=== PATIENT | male | born 1950 | race Caucasian/White ===

== ENCOUNTER 2018-03-08 23:38 | Emergency (ER) | payer OTHER ==
[2018-03-09 00:26] LABS: Absolute Monocytes 0.6 K/uL (0.1-1.3); Absolute Neutrophil 4.2 K/uL (1.8-8.0); Basophils % 0.4 % (0-1.3); Eosinophils % 2.8 % (0-4.4); Hematocrit 35.9 % (39.6-49.0); Lymphocytes % 28.4 % (15.3-44.8); MCH 29.6 pg (27.0-35.0); MCV 85.1 fL (80-100); MPV 8.9 fL (7.6-11.3); Monocytes % 8.1 % (3.3-12.3); RBC Red Blood Cell Count 4.21 M/uL (4.33-5.43)
[2018-03-09 00:34] LABS: Potassium 3.6 mEq/L (3.6-5.0)
[2018-03-09 00:45] LABS: Protime INR 0.96
[2018-03-09] MEDS ORDERED: ASPIRIN 325 MG TAB ONE (01:25)
--- NOTE | 2018-03-09 02:02 | EDPHYS ---
Physician Documentation [facility] Name: Toney Jenkins Age: 67 yrs Sex: Male : 1950 Arrival Date: 03/08/2018 Time: 23:39 Bed 13 Private MD: ED Physician Bruce Carbajal HPI: 03/09 00:20 This 67 yrs old Male presents to ER via Ambulatory with complaints of Slurred pm1 Speech, High Blood Pressure. 00:20 The patient presents to the emergency department with a speech or higher order brain pm1 function problem, expressive aphasia, right side of mouth drooping. Onset: The symptoms/episode began/occurred yesterday, at 19:30. Context: occurred at home, occurred while the patient was watching TV. Associated signs and symptoms: Pertinent negatives: nausea, paresthesias, blurred vision, loss of vision. Severity of symptoms: in the emergency department the symptoms have improved. Patient's baseline: Neuro: alert and fully oriented, Motor: no deficits, Ambulation: walks without assistance, Speech: normal. Current symptoms: Currently, the patient is not experiencing any symptoms, the patient feels back to baseline. The patient has not experienced similar symptoms in the past. The patient has been recently seen by a physician: the patient's primary care provider. patient noticed that he was having some difficulty with expressing himself and right side mouth of mouth appeared lower with feeling that drool was dripping out of the corner of his mouth. Historical: - Allergies: 00:41 No Known Allergies; bb - Home Meds: 00:41 tamsulosin 0.4 mg oral cp24 1 cap once daily [Active]; carvedilol 25 mg oral tab 1 tab bb 2 times per day [Active]; losartan 100 mg oral tab 1 tab once daily [Active]; buspirone 10 mg Oral tab 1 tab 2 times per day [Active]; atorvastatin 40 mg oral tab 1 tab once daily [Active]; aspirin 81 mg Oral chew 1 tab once daily [Active]; hydrochlorothiazide 25 mg Oral tab 1 tab once daily [Active]; eplerenone 50 mg oral tab 1 tab once daily [Active]; - PMHx: 00:41 Hypertension; BPH; bb - Immunization history:: Adult Immunizations unknown. - Social history:: Smoking status: Patient/guardian denies using. ROS: 01:00 Constitutional: Negative for fever, chills, and weight loss, Eyes: Negative for injury, pm1 pain, redness, and discharge, ENT: Negative for injury, pain, and discharge, Neck: Negative for injury, pain, and swelling, Cardiovascular: Negative for chest pain, palpitations, and edema, Respiratory: Negative for shortness of breath, cough, wheezing, and pleuritic chest pain, Abdomen/GI: Negative for abdominal pain, nausea, vomiting, diarrhea, and constipation, Back: Negative for injury and pain, : Negative for injury, bleeding, discharge, and swelling, MS/Extremity: Negative for injury and deformity, Skin: Negative for injury, rash, and discoloration. 01:00 Neuro: Positive for right sided mouth drooping and drooling with expressive aphasia . Exam: 01:00 Constitutional: This is a well developed, well nourished patient who is awake, alert, pm1 and in no acute distress. Head/Face: Normocephalic, atraumatic. Eyes: Pupils equal round and reactive to light, extra-ocular motions intact. Lids and lashes normal. Conjunctiva and sclera are non-icteric and not injected. Cornea within normal limits. Periorbital areas with no swelling, redness, or edema. ENT: Nares patent. No nasal discharge, no septal abnormalities noted. Tympanic membranes are normal and external auditory canals are clear. Oropharynx with no redness, swelling, or masses, exudates, or evidence of obstruction, uvula midline. Mucous membranes moist. Neck: Trachea midline, no thyromegaly or masses palpated, and no cervical lymphadenopathy. Supple, full range of motion without nuchal rigidity, or vertebral point tenderness. No Meningismus. Chest/axilla: Normal chest wall appearance and motion. Nontender with no deformity. No lesions are appreciated. Cardiovascular: Regular rate and rhythm with a normal S1 and S2. No gallops, murmurs, or rubs. No pulse deficits. Respiratory: Lungs have equal breath sounds bilaterally, clear to auscultation and percussion. No rales, rhonchi or wheezes noted. No increased work of breathing, no retractions or nasal flaring. Abdomen/GI: Soft, non-tender, with normal bowel sounds. No distension or tympany. No guarding or rebound. No evidence of tenderness throughout. Back: No spinal tenderness. No costovertebral tenderness. Full range of motion. Skin: Warm, dry with normal turgor. Normal color with no rashes, no lesions, and no evidence of cellulitis. MS/ Extremity: Pulses equal, no cyanosis. Neurovascular intact. Full, normal range of motion. 01:00 Neuro: Orientation: is normal, Mentation: is normal, Cranial nerves: CN II- XII are normal as tested, Cerebellar function: normal finger to nose testing, Motor: moves all fours, strength is normal, strength is 5/5 in all extremities, Sensation: is normal, no obvious gross deficits. Vital Signs: 03/08 23:53 BP 173 / 94; Pulse 73; Resp 18 S; Temp 98.3(O); Pulse Ox 98% on R/A; Weight 88 kg (R); bb Height 5 ft. 10 in. (177.80 cm) (R); Pain 0/10; 03/09 00:55 BP 152 / 85; Pulse 70; Resp 18 S; Pulse Ox 96% on R/A; bb 01:50 BP 176 / 98; Pulse 67; Resp 16 S; Pulse Ox 98% on R/A; bb 03:06 BP 175 / 93; Pulse 66; Resp 16 S; Pulse Ox 98% on R/A; bb 04:15 BP 169 / 92; Pulse 71; Resp 18 S; Pulse Ox 96% on R/A; bb 03/08 23:53 Body Mass Index 27.84 (88.00 kg, 177.80 cm) bb NIH Stroke Scale Scores: 00:00 NIHSS Score: 1 bb 00:25 NIHSS Score: 0 pm1 MDM: 00:05 Patient medically screened. pm1 01:59 Data reviewed: vital signs. Data interpreted: Pulse oximetry: on room air is 96 %. pm1 Interpretation: normal. 01:59 Counseling: I had a detailed discussion with the patient and/or guardian regarding: the pm1 historical points, exam findings, and any diagnostic results supporting the discharge/admit diagnosis, lab results, radiology results, the need to transfer to another facility, [facility] does not immediately have the required specialist. 03:30 Physician consultation: Neurology Fellow Yvette was contacted at 03:05, regarding pm1 regarding transfer, patient's condition, and will see patient if bed available. Will call back. Accepting physician Tyler. 03:30 ED course: Patient with onset of expressive aphasia and right sided mouth droop per pm1 at 1930. Patient arrival to ER at 0000, 4.5 hours post onset of symptoms. Patient with complete resolution of symptoms on arrival to the ER on assessment. Patient without stroke symptoms in the ER and not a candidate for thrombolytics based on presentation and time of onset of symptoms. 03/09 00:04 Order name: Basic Metabolic Panel; Complete Time: 01:02 pm1 03/09 00:04 Order name: CBC with Diff; Complete Time: 01:02 pm1 03/09 00:04 Order name: Protime (+inr); Complete Time: 01:02 pm1 03/09 00:04 Order name: Ptt, Activated; Complete Time: 01:02 pm1 03/09 00:04 Order name: Urine Microscopic Only; Complete Time: 03:03 pm1 03/09 01:46 Order name: Urine Dipstick--Ancillary (enter results); Complete Time: 03:18 2 03/09 00:01 Order name: CT Stroke Brain w/o Contrast [facility] 03/09 00:04 Order name: Stroke CXR 1 View pm1 03/09 00:04 Order name: EKG; Complete Time: 00:05 pm1 03/09 00:04 Order name: Cardiac monitoring; Complete Time: 00:53 pm1 03/09 00:04 Order name: EKG - Nurse/Tech; Complete Time: 01:21 pm1 03/09 00:04 Order name: IV Saline Lock; Complete Time: 00:53 pm1 03/09 00:04 Order name: Labs collected and sent; Complete Time: 00:53 pm1 03/09 00:04 Order name: NPO; Complete Time: 00:53 pm1 03/09 00:04 Order name: O2 Per Protocol; Complete Time: 00:53 pm1 03/09 00:04 Order name: O2 Sat Monitoring; Complete Time: 00:53 pm1 03/09 00:04 Order name: Stroke Swallow Screen; Complete Time: 00:53 pm1 03/09 00:04 Order name: Urine Dipstick-Ancillary (obtain specimen); Complete Time: 01:37 pm1 Administered Medications: 01:25 Drug: Aspirin 325 mg Route: PO; bb 03:10 Follow up: Response: No adverse reaction bb Disposition: 19:08 Co-signature as Attending Physician, Bruce Carbajal MD. dionte Disposition: 03/09/18 02:01 Transfer ordered to [facility]. Diagnosis is Transient cerebral ischemic attack, unspecified. - Reason for transfer: Specialty. - Accepting physician is [facility] neurology. - Condition is Stable. - Problem is new. - Symptoms have improved. NIH Stroke Scale - NIH Stroke Score Date: 03/09/2018 Time: 00:00 Total Score = 1 1a. Level of Consciousness (LOC) - 0(Alert) 1b. Level of Consciousness (LOC) (Year \T\ Age) - 0(Both) 1c. LOC Commands (Open \T\ Closes Eyes/Blanket Binder) - 0(Both) 2. Best Gaze (Lateral Gaze Paresis) - 0(Normal) 3. Visual Field Loss - 0(No visual loss) 4. Facial Palsy - 0(Normal) 5a. Left Arm: Motor (10-second hold) - 0(No drift) 5b. Right Arm: Motor (10-second hold) - 0(No drift) 6a. Left Leg: Motor (5-second hold - always test supine) - 0(No drift) 6b. Right Leg: Motor (5-second hold - always test supine) - 0(No drift) 7. Limb Ataxia (finger/nose \T\ heel/chawla - test with eyes open) - 0(Absent) 8. Sensory Loss (pinprick arms/legs/face) - 0(Normal) 9. Best Language: Aphasia (description/naming/reading) - 0(No aphasia) 10. Dysarthria (speech clarity - read or repeat words) - 1(Mild to Moderate) 11. Extinction and Inattention (visual/tactile/auditory/spatial/personal) - 0(No abnormality) Initials: oscar NIH Stroke Scale - NIH Stroke Score Date: 03/09/2018 Time: 00:25 Total Score = 0 1a. Level of Consciousness (LOC) - 0(Alert) 1b. Level of Consciousness (LOC) (Year \T\ Age) - 0(Both) 1c. LOC Commands (Open \T\ Closes Eyes/Blanket Binder) - 0(Both) 2. Best Gaze (Lateral Gaze Paresis) - 0(Normal) 3. Visual Field Loss - 0(No visual loss) 4. Facial Palsy - 0(Normal) 5a. Left Arm: Motor (10-second hold) - 0(No drift) 5b. Right Arm: Motor (10-second hold) - 0(No drift) 6a. Left Leg: Motor (5-second hold - always test supine) - 0(No drift) 6b. Right Leg: Motor (5-second hold - always test supine) - 0(No drift) 7. Limb Ataxia (finger/nose \T\ heel/chawla - test with eyes open) - 0(Absent) 8. Sensory Loss (pinprick arms/legs/face) - 0(Normal) 9. Best Language: Aphasia (description/naming/reading) - 0(No aphasia) 10. Dysarthria (speech clarity - read or repeat words) - 0(Normal) 11. Extinction and Inattention (visual/tactile/auditory/spatial/personal) - 0(No abnormality) Initials: pm1 Signatures: Dispatcher [employer] EDMS Roxana Earl RN RN bb Cole Aguirre, SMALL BOAT ENGINEER SMALL BOAT ENGINEER pm1 Bruce Carbajal MD MD gs Corrections: (The following items were deleted from the chart) 00:54 00:04 Accucheck ordered. pm1 bb 02:18 00:20 The patient presents to the emergency department with a speech or higher pm1 order brain function problem, expressive aphasia, left side of mouth drooping, pm1
--- NOTE | 2018-03-09 02:02 | ER ---
Nurse's Notes [facility] Name: Toney Jenkins Age: 67 yrs Sex: Male : 1950 Arrival Date: 03/08/2018 Time: 23:39 Bed 13 Private MD: Diagnosis: Transient cerebral ischemic attack, unspecified Presentation: 03/08 23:50 Presenting complaint: states: she noticed pt having difficulty speaking at approx bb 1930 last night she also states pt has a crooked smile and his blood pressure has been really high the last few days. Transition of care: patient was not received from another setting of care. An acute neurological deficit is present. Onset of symptoms was March 08, 2018 at 19:30. Initial Sepsis Screen: Does the patient meet any 2 criteria? No. Patient's initial sepsis screen is negative. Does the patient have a suspected source of infection? No. Patient's initial sepsis screen is negative. Care prior to arrival: None. 23:50 Method Of Arrival: Ambulatory 23:50 Acuity: DANII 2 bb 03/09 00:52 Pre-hospital glucose is not applicable to this patient. bb Triage Assessment: 03/08 00:50 The onset of the patients symptoms was March 08, 2018 at 19:30. General: Appears in no bb apparent distress. well groomed, Behavior is calm, cooperative. Pain: Denies pain. Neuro: Level of Consciousness is awake, alert, obeys commands, Oriented to person, place, time, situation, Form Coverer are equal bilaterally Gait is steady, Speech is slurred, Facial symmetry appears normal, Reports difficulty speaking "can't find the right words". Cardiovascular: Heart tones S1 S2 present Capillary refill < 3 seconds Patient's skin is warm and dry. Respiratory: Airway is patent Respiratory effort is even, unlabored. GI: No deficits noted. No signs and/or symptoms were reported involving the gastrointestinal system. Derm: Skin is pink, warm \\T\\ dry. Musculoskeletal: Circulation, motion, and sensation intact. Historical: - Allergies: 03/09 00:41 No Known Allergies; bb - Home Meds: 00:41 tamsulosin 0.4 mg oral cp24 1 cap once daily [Active]; carvedilol 25 mg oral tab 1 tab bb 2 times per day [Active]; losartan 100 mg oral tab 1 tab once daily [Active]; buspirone 10 mg Oral tab 1 tab 2 times per day [Active]; atorvastatin 40 mg oral tab 1 tab once daily [Active]; aspirin 81 mg Oral chew 1 tab once daily [Active]; hydrochlorothiazide 25 mg Oral tab 1 tab once daily [Active]; eplerenone 50 mg oral tab 1 tab once daily [Active]; - PMHx: 00:41 Hypertension; BPH; bb - Immunization history:: Adult Immunizations unknown. - Social history:: Smoking status: Patient/guardian denies using. Screenin/18 23:53 Abuse screen: Denies threats or abuse. Nutritional screening: No deficits noted. bb Tuberculosis screening: No symptoms or risk factors identified. Fall Risk Secondary diagnosis (15 points) IV access (20 points). Ambulatory Aid- None/Bed Rest/Nurse Assist (0 pts). Mental Status- Oriented to own ability (0 pts). Total Caban Fall Scale indicates Low Risk Score (25-44 pts). Fall prevention measures have been instituted. Side Rails Up X 2 Family Present and informed to notify staff if they need to leave bedside As available Patient and Family Educated on Fall Prevention Program and strategies. Assessment: 00:00 T-PA (Activase) Screening: Contraindications: Patient reports onset of signs and bb symptoms of stroke greater than 6 hours ago: Yes. 23:50 Reassessment: No changes from previously documented assessment. see triage assessment. bb 03/09 00:10 The patient has not been NPO before screening. The patient is alert, and able to follow bb commands. The patient exhibits slurred or garbled speech. The patient is not exhibiting difficulty speaking. The patient does not exhibit difficulty understanding words. The patient is able to swallow own secretions with no drooling or need for suction. Patient tolerated one teaspoon of water. No drooling, immediate coughing, gurgling, or clearing of the throat was noted. The patient tolerated 90mL of water. No drooling, immediate coughing, gurgling, or clearing of the throat was noted. The patient passed the bedside swallow screening. Oral medications may be given as ordered. Contact Physician for further diet orders. 00:10 Provider notified of bedside swallow screening results: Cole Aguirre ASSEMBLER ENGINE. bb 00:55 Reassessment: Patient is alert, oriented x 3, equal unlabored respirations, skin bb warm/dry/pink. pt resting quietly, IV intact, awaiting results, family at bedside. 01:50 Reassessment: pt appears to be sleeping, eyes closed resp unlabored, no signs of bb discomfort, IV site intact, family at bedside pt awaiting transfer for higher level of care. 03:09 Reassessment: Patient and/or family updated on plan of care and expected duration. Pain bb level reassessed. Patient is alert, oriented x 3, equal unlabored respirations, skin warm/dry/pink. family at bedside Patient states symptoms have improved. 03:40 Reassessment: report called to Nenita Moctezuma RN at [facility] [place].bb 04:16 Reassessment: [facility] at bedside for transfer of pt to [facility] pt is A\\T\\O x 4, resp unlabored, IV intact, no signs of distress noted, pt ambulated with steady gait to the bathroom before lying on EMS stretcher. Spouse states she is going home and will be there in the morning. Vital Signs: 03/08 23:53 BP 173 / 94; Pulse 73; Resp 18 S; Temp 98.3(O); Pulse Ox 98% on R/A; Weight 88 kg (R); bb Height 5 ft. 10 in. (177.80 cm) (R); Pain 0/10; 03/09 00:55 BP 152 / 85; Pulse 70; Resp 18 S; Pulse Ox 96% on R/A; bb 01:50 BP 176 / 98; Pulse 67; Resp 16 S; Pulse Ox 98% on R/A; bb 03:06 BP 175 / 93; Pulse 66; Resp 16 S; Pulse Ox 98% on R/A; bb 04:15 BP 169 / 92; Pulse 71; Resp 18 S; Pulse Ox 96% on R/A; bb 03/08 23:53 Body Mass Index 27.84 (88.00 kg, 177.80 cm) bb NIH Stroke Scale Scores: 00:00 NIHSS Score: 1 bb 00:25 NIHSS Score: 0 pm1 ED Course: 03/08 23:39 Patient arrived in ED. ds1 23:47 Roxana Earl, RN is Primary Nurse. bb 23:53 Arm band placed on Patient placed in an exam room, on a stretcher, on contract driver, bb on pulse oximetry. 23:53 Patient has correct armband on for positive identification. Placed in gown. Bed in low bb position. Call light in reach. Side rails up X2. Adult w/ patient. Pulse ox on. NIBP on. 03/09 00:04 Cole Aguirre NP is PHCP. pm1 00:04 Bruce Carbajal MD is Attending Physician. pm1 00:05 Inserted saline lock: 20 gauge in right forearm, using aseptic technique. ,using bb aseptic technique. by [facility] Blood collected. 00:16 X-ray completed. Portable x-ray completed in exam room. Patient tolerated procedure bb2 well. 00:16 CT Stroke Brain w/o Contrast In Process Unspecified. EDMS 00:17 Stroke CXR 1 View In Process Unspecified. EDMS 00:38 Triage completed. bb 01:20 Urine collected: clean catch specimen, clear. bb 01:21 EKG done, by ED staff, reviewed by Cole Aguirre NP. cc 03:07 Warm blanket given. Pillow given. bb 04:21 No provider procedures requiring assistance completed. Patient transferred, IV remains bb in place. Administered Medications: 01:25 Drug: Aspirin 325 mg Route: PO; bb 03:10 Follow up: Response: No adverse reaction bb Outcome: 01:00 Instructed on the need for transfer. bb 02:01 ER care complete, transfer ordered by . pm1 04:21 Transferred by ground EMS to [facility], Transfer form completed. X-rays sent bb w/ patient. 04:21 Condition: stable 04:22 Patient left the ED. bb NIH Stroke Scale - NIH Stroke Score Date: 03/09/2018 Time: 00:00 Total Score = 1 1a. Level of Consciousness (LOC) - 0(Alert) 1b. Level of Consciousness (LOC) (Year \\T\\ Age) - 0(Both) 1c. LOC Commands (Open \\T\\ Closes Eyes/Runway Model) - 0(Both) 2. Best Gaze (Lateral Gaze Paresis) - 0(Normal) 3. Visual Field Loss - 0(No visual loss) 4. Facial Palsy - 0(Normal) 5a. Left Arm: Motor (10-second hold) - 0(No drift) 5b. Right Arm: Motor (10-second hold) - 0(No drift) 6a. Left Leg: Motor (5-second hold - always test supine) - 0(No drift) 6b. Right Leg: Motor (5-second hold - always test supine) - 0(No drift) 7. Limb Ataxia (finger/nose \\T\\ heel/chawla - test with eyes open) - 0(Absent) 8. Sensory Loss (pinprick arms/legs/face) - 0(Normal) 9. Best Language: Aphasia (description/naming/reading) - 0(No aphasia) 10. Dysarthria (speech clarity - read or repeat words) - 1(Mild to Moderate) 11. Extinction and Inattention (visual/tactile/auditory/spatial/personal) - 0(No abnormality) Initials: oscar NIH Stroke Scale - NIH Stroke Score Date: 03/09/2018 Time: 00:25 Total Score = 0 1a. Level of Consciousness (LOC) - 0(Alert) 1b. Level of Consciousness (LOC) (Year \\T\\ Age) - 0(Both) 1c. LOC Commands (Open \\T\\ Closes Eyes/Runway Model) - 0(Both) 2. Best Gaze (Lateral Gaze Paresis) - 0(Normal) 3. Visual Field Loss - 0(No visual loss) 4. Facial Palsy - 0(Normal) 5a. Left Arm: Motor (10-second hold) - 0(No drift) 5b. Right Arm: Motor (10-second hold) - 0(No drift) 6a. Left Leg: Motor (5-second hold - always test supine) - 0(No drift) 6b. Right Leg: Motor (5-second hold - always test supine) - 0(No drift) 7. Limb Ataxia (finger/nose \\T\\ heel/chawla - test with eyes open) - 0(Absent) 8. Sensory Loss (pinprick arms/legs/face) - 0(Normal) 9. Best Language: Aphasia (description/naming/reading) - 0(No aphasia) 10. Dysarthria (speech clarity - read or repeat words) - 0(Normal) 11. Extinction and Inattention (visual/tactile/auditory/spatial/personal) - 0(No abnormality) Initials: pm1 Signatures: Dispatcher [employer] [facility] Sirisha Johnson ds1 Roxana Earl, RADHA RN bb Dayanara Tian Patrick, ROSANNA ASSEMBLER ENGINE pm1 Abbey Zacarias bb2 Corrections: (The following items were deleted from the chart) 00:49 03/08 00:53 BP 173 / 94; Pulse 73bpm; Resp 18bpm; Spontaneous; Pulse Ox 98% RA; bb Temp 98.3F Oral; 88 kg Reported; Height 5 ft. 10 in. Reported; BMI: 27.8; Pain 0/10; bb 03/09 00:50 03/08 00:53 Arm band placed on Patient placed in an exam room, on a stretcher, bb on contract driver, on pulse oximetry, bb 03/09 00:50 03/08 00:53 Family accompanied patient. oscar moore
[2018-03-09 02:39] LABS: Urine Bacteria <20 /HPF (NONE SEEN); Urine Culture Reflex Order NOT NEEDED; Urine RBC NONE SEEN /HPF (NONE SEEN)
[2018-03-09 03:15] LABS: Urine Blood NEGATIVE (NEG); Urine Glucose NEGATIVE (NEG); Urine Protein NEGATIVE (NEG)
--- NOTE | 2018-03-09 07:58 | RAD REPORT ---
EXAM DESCRIPTION: Leo Single View03/09/2018 12:19 am CLINICAL HISTORY: Chest pain/slurred speech COMPARISON: none FINDINGS: The lungs appear clear of acute infiltrate. The heart is normal size IMPRESSION: No acute abnormalities displayed
--- NOTE | 2018-03-09 09:11 | RAD REPORT ---
EXAM DESCRIPTION: CT - Ct Stroke Brain Wo Cont - 03/09/2018 8:17 am CLINICAL HISTORY: Slurred speech COMPARISON: None. TECHNIQUE: Computed axial tomography of the head was obtained. IV contrast was not requested. A prel iminary report was generated by [employer] and reviewed prior to this dictation All CT scans are performed using dose optimization technique as appropriate and may include automated exposure control or mA/KV adjustment according to patient size. FINDINGS: An intracranial bleed is not seen . The ventricles are normal in caliber. An 8 millimeter low-density areas present within the right basal ganglia. Mild low-density areas with in periventricular white matter likely represent ischemic changes secondary to small vessel disease. No extra-axial fluid collection is noted. Fluid within the sinuses/ mastoids is not seen. IMPRESSION: 8 millimeter low-density area within the right basal ganglia probably representing a lac unar infarct. The age is indeterminate. If clinically indicated MRI would be helpful for further eval uation The exam was discussed with Jc Wheatley in the Emergency Room at 905 a.m. on March 09, 2018
--- NOTE | 2018-03-09 09:14 | EKG ---
Test Date: 2018-03-09 Test Time: 01:12:35 Straw Hat Plunger Operator: FRANCISCO MEASUREMENT RESULTS: Intervals: Rate: 70 MN: 198 QRSD: 106 QT: 402 QTc: 434 [place]: P: 11 MN: 198 QRS: -32 T: 40 INTERPRETIVE STATEMENTS: Sinus rhythm with premature supraventricular complexes Left axis deviation Incomplete right bundle branch block Abnormal ECG Compared to ECG 08/31/2004 15:10:00 Atrial premature complex(es) now present Left-axis deviation now present Electronically Signed On 03-09-18 09:13:39 CDT by Murray Pardo
== END 2018-03-09 04:22 | disposition short-term general hospital (02) ==
LOC: ER 23:38
DX: G45.9 Transient cerebral ischemic attack, unspecified (principal); R29.701 NIHSS score 1; I10 Essential (primary) hypertension; Z79.82 Long term (current) use of aspirin
CPT/HCPCS: 36415; 70450; 71045; 80048; 81003; 81015; 85025; 85610; 85730; 93005; 99285

== ENCOUNTER 2018-10-20 21:11 | Observation (INO) | payer OTHER ==
[2018-10-20] MEDS ORDERED: NA CHLORIDE 0.9% 500 ML ONE (21:57)
--- NOTE | 2018-10-20 22:29 | RAD REPORT ---
EXAM DESCRIPTION: RAD - Chest Single View - 10/20/2018 10:17 pm CLINICAL HISTORY: COUGH Chest pain. COMPARISON: Chest Single View dated 03/09/2018 FINDINGS: Portable technique limits examination quality. The lungs are grossly clear. The heart is normal in size. No displaced fractures. IMPRESSION: No acute intrathoracic process suspected.
[2018-10-20 22:31] LABS: Absolute Lymphocytes (CBC) 0.5 K/uL (0.7-4.9); Absolute Monocytes 0.5 K/uL (0.1-1.3); Absolute Neutrophil 6.9 K/uL (1.8-8.0); Basophils % 0.2 % (0-1.3); Eosinophils % 1.7 % (0-4.4); Hematocrit 32.2 % (39.6-49.0); Lymphocytes % 6.2 % (15.3-44.8); MCH 31.8 pg (27.0-35.0); MCV 86.7 fL (80-100); Monocytes % 6.7 % (3.3-12.3); RBC Red Blood Cell Count 3.72 M/uL (4.33-5.43)
[2018-10-20 22:32] LABS: Protime INR 1.07
[2018-10-20 22:47] LABS: ALT/SGPT 23 U/L (12-78); AST/SGOT 16 U/L (15-37); Albumin 3.2 g/dL (3.4-5.0); Alkaline Phosphatase 53 U/L (45-117); BUN Blood Urea Nitrogen 23 mg/dL (7-18); Bicarbonate 28 mmol/L (21-32); Bilirubin Direct 0.2 mg/dL (0-0.2); Bilirubin Total 0.5 mg/dL (0.2-1.0); Glucose Level 83 mg/dL (74-106); Magnesium 1.9 mg/dL (1.8-2.4); NT PRO-BNP 87 pg/mL (<125); Potassium 3.9 mmol/L (3.5-5.1); Protein, Total 5.9 g/dL (6.4-8.2); Sodium Level 141 mmol/L (136-145); Troponin (Emerg Dept Use Only) < 0.02 ng/mL (0.0-0.045)
[2018-10-20 23:09] LABS: Blood Morphology Comment NOT SEEN (NOT SEEN); Platelet Estimate ADEQ
[2018-10-21] MEDS ORDERED: HYDROCORTISONE SUC 100 MG INJ ONE (00:22)
--- NOTE | 2018-10-21 00:58 | EDPHYS ---
Physician Documentation [facility] Name: Toney Jenkins Age: 68 yrs Sex: Male : 1950 Arrival Date: 10/20/2018 Time: 21:12 Bed 18 Private MD: Sharif Sheehan ED Physician Bruce Carbajal HPI: 10/21 00:54 This 68 yrs old Male presents to ER via EMS with complaints of General snw Weakness. 00:54 generalized weakness, near syncope, diaphoresis, hypotension. Onset: The snw symptoms/episode began/occurred suddenly, just prior to arrival. Severity of symptoms: At their worst the symptoms were moderate severe in the emergency department the symptoms have improved mildly. The patient has not experienced similar symptoms in the past. It is unknown whether or not the patient has recently seen a physician, Sees Dr. Sheehan. denies chest pain, vomiting, fever, blood sugar has been 160 and under recently. No medication dose changes. Historical: - Allergies: 10/20 21:20 No Known Allergies; rr5 - Home Meds: 21:20 tresiba 12 unit am and 12 units pm [Active]; Novolog Sub-Q [Active]; atorvastatin 40 mg rr5 Oral tab 1 tab once daily [Active]; buspirone 15 mg oral tab 2 times per day [Active]; carvedilol 25 mg Oral tab 1 tab 2 times per day [Active]; clopidogrel 75 mg oral tab 1 tab [Active]; eplerenone 50 mg Oral tab 1 tab once daily [Active]; hydrochlorothiazide 25 mg Oral tab 1 tab once daily [Active]; losartan 100 mg Oral tab 1 tab once daily [Active]; doxazosin oral [Active]; - PMHx: 21:20 BPH; Hypertension; Diabetes - IDDM; stroke; rr5 - PSHx: 21:20 Carpal Tunnel Repair; Knee surgery; rr5 - Immunization history:: Adult Immunizations up to date, Flu vaccine is not up to date. - Social history:: Smoking status: Patient/guardian denies using tobacco, Patient uses alcohol, occasionally. Patient/guardian denies using street drugs. - Ebola Screening: : Patient negative for fever greater than or equal to 101.5 degrees Fahrenheit, and additional compatible Ebola Virus Disease symptoms Patient denies exposure to infectious person Patient denies travel to an Ebola-affected area in the 21 days before illness onset. ROS: 10/21 00:52 Eyes: Negative for injury, pain, redness, and discharge, ENT: Negative for injury, snw pain, and discharge, Neck: Negative for injury, pain, and swelling, Cardiovascular: Negative for chest pain, palpitations, and edema, Respiratory: Negative for shortness of breath, cough, wheezing, and pleuritic chest pain. Back: Negative for injury and pain, : Negative for injury, bleeding, discharge, and swelling, MS/Extremity: Negative for injury and deformity, Skin: Negative for injury, rash, and discoloration. Constitutional: Positive for fatigue, malaise. Abdomen/GI: Positive for nausea, Negative for vomiting, constipation, abdominal cramps, abdominal distension. Neuro: Positive for near syncope, weakness. Exam: 00:52 Head/Face: Normocephalic, atraumatic. Eyes: Pupils equal round and reactive to light, snw extra-ocular motions intact. Lids and lashes normal. Conjunctiva and sclera are non-icteric and not injected. Cornea within normal limits. Periorbital areas with no swelling, redness, or edema. ENT: Nares patent. No nasal discharge, no septal abnormalities noted. Tympanic membranes are normal and external auditory canals are clear. Oropharynx with no redness, swelling, or masses, exudates, or evidence of obstruction, uvula midline. Mucous membranes moist. Neck: Trachea midline, no thyromegaly or masses palpated, and no cervical lymphadenopathy. Supple, full range of motion without nuchal rigidity, or vertebral point tenderness. No Meningismus. Chest/axilla: Normal chest wall appearance and motion. Nontender with no deformity. No lesions are appreciated. Cardiovascular: Regular rate and rhythm with a normal S1 and S2. No gallops, murmurs, or rubs. Normal PMI, no JVD. No pulse deficits. Respiratory: Lungs have equal breath sounds bilaterally, clear to auscultation and percussion. No rales, rhonchi or wheezes noted. No increased work of breathing, no retractions or nasal flaring. Abdomen/GI: Soft, non-tender, with normal bowel sounds. No distension or tympany. No guarding or rebound. No evidence of tenderness throughout. Back: No spinal tenderness. No costovertebral tenderness. Full range of motion. MS/ Extremity: Pulses equal, no cyanosis. Neurovascular intact. Full, normal range of motion. 00:52 Constitutional: The patient appears alert, awake, listless, pale. 00:52 Skin: Appearance: Color: pale, Temperature: normal temperature, Moisture: dry. 00:52 Neuro: Orientation: is normal, Mentation: is normal, Memory: is normal, Cranial nerves: grossly normal, Gait: not tested. seizure activity, is not displayed by the patient, general listlessness. Vital Signs: 10/20 21:15 BP 93 / 53; Pulse 71; Resp 18; Temp 97.8(O); Pulse Ox 100% on R/A; Pain 0/10; rr5 21:15 Weight 90.72 kg; Height 5 ft. 9 in. (175.26 cm); Pain 0/10; rr5 22:00 BP 98 / 73; Pulse 71; Resp 17; Pulse Ox 99% on R/A; Pain 0/10; rr5 22:30 BP 107 / 68; Pulse 73; Resp 17; Pulse Ox 99% ; rr5 23:58 BP 120 / 69; Pulse 75; Resp 18; Pulse Ox 97% on R/A; mt 10/21 00:30 BP 105 / 69; Pulse 76; Resp 17; Pulse Ox 99% on R/A; rr5 02:00 BP 112 / 63; Pulse 72; Resp 16; Pulse Ox 99% on R/A; rr5 02:30 BP 105 / 66; Pulse 70; Resp 17; Temp 97.9(O); Pulse Ox 99% on R/A; rr5 10/20 21:15 Body Mass Index 29.53 (90.72 kg, 175.26 cm) rr5 MDM: 10/20 22:01 Patient medically screened. snw 10/21 00:57 Data reviewed: vital signs, nurses notes, EMS record. Data interpreted: Pulse oximetry: snw on room air is 99 %. Interpretation: normal. Counseling: I had a detailed discussion with the patient and/or guardian regarding: the historical points, exam findings, and any diagnostic results supporting the discharge/admit diagnosis, lab results, radiology results, the need for further work-up and treatment in the hospital. Physician consultation: Yaquelin Saldana MD was called at 00:58, was contacted at 00:58, regarding admission, to the telemetry unit. 10/20 21:37 Order name: Basic Metabolic Panel [facility] 10/20 21:37 Order name: CBC with Diff [facility] 10/20 21:37 Order name: LFT's [facility] 10/20 21:37 Order name: Magnesium [facility] 10/20 21:37 Order name: NT PRO-BNP [facility] 10/20 21:37 Order name: PT-INR [facility] 10/20 21:37 Order name: Troponin (emerg Dept Use Only) [facility] 10/20 22:31 Order name: Flu [facility] 10/20 22:33 Order name: CBC with Automated Diff; Complete Time: 23:19 EDMS 10/20 22:34 Order name: Protime (+INR); Complete Time: 22:35 EDMS 10/20 22:47 Order name: Basic Metabolic Panel; Complete Time: 22:48 EDMS 10/20 22:47 Order name: Liver (Hepatic) Function; Complete Time: 22:48 EDMS 10/20 22:47 Order name: Troponin (Emerg Dept Use Only); Complete Time: 22:48 EDMS 10/20 22:47 Order name: NT PRO-BNP; Complete Time: 22:48 EDMS 10/20 21:37 Order name: XRAY Chest (1 view) [facility] 10/20 21:37 Order name: EKG; Complete Time: 22:16 w 10/20 21:37 Order name: Cardiac monitoring; Complete Time: 21:43 [facility] 10/20 21:37 Order name: EKG - Nurse/Tech; Complete Time: 21:43 [facility] 10/20 21:37 Order name: IV Saline Lock; Complete Time: 21:43 w 10/20 22:30 Order name: RAD; Complete Time: 22:31 EDMS 10/20 22:47 Order name: Magnesium; Complete Time: 22:48 EDMS 10/20 23:07 Order name: Influenza Screen (A ; Complete Time: 23:19 EDMS 10/20 23:09 Order name: Manual Differential; Complete Time: 23:19 EDMS 10/20 23:55 Order name: Urine Microscopic Only [facility] 10/21 01:05 Order name: Urine Microscopic Only; Complete Time: 01:07 EDMS 10/21 01:12 Order name: Urine Dipstick--Ancillary (enter results) mw2 10/21 01:50 Order name: Urine Dipstick-Ancillary; Complete Time: 01:52 EDMS 10/20 21:37 Order name: Labs collected and sent; Complete Time: 22:09 snw 10/20 21:37 Order name: O2 Per Protocol; Complete Time: 21:43 snw 10/20 21:37 Order name: O2 Sat Monitoring; Complete Time: 21:43 snw 10/20 21:37 Order name: Blood Pressure Recheck: q 30 minutes; Complete Time: 21:43 snw 10/20 23:55 Order name: Urine Dipstick-Ancillary (obtain specimen); Complete Time: 00:37 snw Administered Medications: 10/20 22:00 Drug: NS 0.9% 500 ml Route: IV; Rate: bolus; Site: left antecubital; rr5 10/21 00:30 Follow up: Response: No adverse reaction; IV Status: Completed infusion; IV Intake: rr5 500ml 00:24 Drug: HydroCORTISONE 100 mg Route: IVP; Site: right antecubital; rr5 02:16 Follow up: Response: No adverse reaction rr5 00:55 Drug: NS 0.9% 500 ml Route: IV; Rate: bolus; Site: right antecubital; rr5 02:16 Follow up: Response: No adverse reaction; IV Status: Completed infusion; IV Intake: rr5 500ml Point of Care Testing: Blood Glucose: 02:54 Blood Glucose: 176 mg/dL; rr5 Ranges: Critical Glucose Levels:Adult <50 mg/dl or >400 mg/dl <40 mg/dl or >180 mg/dl Disposition: 07:03 Co-signature as Attending Physician, Bruce Carbajal MD. Disposition: 10/21/18 00:57 Hospitalization ordered by Yaquelin Saldana for Observation. Preliminary diagnosis are Muscle weakness (generalized), Hypotension. - Bed requested for Telemetry/MedSurg (observation). - Status is Observation. rr5 - Condition is Stable. - Problem is new. - Symptoms are unchanged. UTI on Admission? No Signatures: Dispatcher [employer] EDMS Patti Mesa RN RN kl Therrien, Shelly, HOUSE CARPENTER HELPER-C HOUSE CARPENTER HELPER-Csnw Bruce Carbajal MD MD Streeter, Pa, RN RN rr5 Corrections: (The following items were deleted from the chart) 10/20 22:10 21:20 Home Meds: aspirin 81 mg Oral chew 1 tab once daily; rr5 rr5 10/21 01:28 00:57 Hospitalization Ordered by Yaquelin Saldana MD for Observation. Preliminary kl diagnosis is Muscle weakness (generalized); Hypotension. Bed requested for Telemetry/MedSurg (observation). Status is Observation. Condition is Stable. Problem is new. Symptoms are unchanged. UTI on Admission? No. snw 02:57 01:28 10/21/2018 00:57 Hospitalization Ordered by Yaquelin Saldana MD for Observation. rr5 Preliminary diagnosis is Muscle weakness (generalized); Hypotension. Bed requested for Telemetry/MedSurg (observation). Status is Observation. Condition is Stable. Problem is new. Symptoms are unchanged. UTI on Admission? No. kl
--- NOTE | 2018-10-21 00:58 | ER ---
Nurse's Notes [facility] Name: Toney Jenkins Age: 68 yrs Sex: Male : 1950 Arrival Date: 10/20/2018 Time: 21:12 Bed 18 Private MD: Sharif Sheehan Diagnosis: Muscle weakness (generalized);Hypotension Presentation: 10/20 21:15 Presenting complaint: EMS states: patient experiencing general body weakness almost rr5 fell down on the floor started today 1800H. pale cold clammy.complaints of nausea while in the ambulance on the way to hospital. on blood thinners, irregular pulse sinus aryhthmia and afib in the tracing. given aspirin 2034H. 21:15 Transition of care: patient was not received from another setting of care. Onset of rr5 symptoms was October 20, 2018. Risk Assessment: Do you want to hurt yourself or someone else? Patient reports no desire to harm self or others. Initial Sepsis Screen: Does the patient meet any 2 criteria? No. Patient's initial sepsis screen is negative. Care prior to arrival: Medication(s) given: ASA, 81 mg, x 1. 21:15 Method Of Arrival: EMS: [facility] rr5 21:15 Acuity: DANII 3 rr5 21:15 Initial Sepsis Screen: Does the patient have a suspected source of infection? No. rr5 Patient's initial sepsis screen is negative. Triage Assessment: 21:15 General: Appears in no apparent distress. comfortable, Behavior is calm, cooperative, rr5 appropriate for age. Pain: Denies pain. Historical: - Allergies: 21:20 No Known Allergies; rr5 - Home Meds: 21:20 tresiba 12 unit am and 12 units pm [Active]; Novolog Sub-Q [Active]; atorvastatin 40 mg rr5 Oral tab 1 tab once daily [Active]; buspirone 15 mg oral tab 2 times per day [Active]; carvedilol 25 mg Oral tab 1 tab 2 times per day [Active]; clopidogrel 75 mg oral tab 1 tab [Active]; eplerenone 50 mg Oral tab 1 tab once daily [Active]; hydrochlorothiazide 25 mg Oral tab 1 tab once daily [Active]; losartan 100 mg Oral tab 1 tab once daily [Active]; doxazosin oral [Active]; - PMHx: 21:20 BPH; Hypertension; Diabetes - IDDM; stroke; rr5 - PSHx: 21:20 Carpal Tunnel Repair; Knee surgery; rr5 - Immunization history:: Adult Immunizations up to date, Flu vaccine is not up to date. - Social history:: Smoking status: Patient/guardian denies using tobacco, Patient uses alcohol, occasionally. Patient/guardian denies using street drugs. - Ebola Screening: : Patient negative for fever greater than or equal to 101.5 degrees Fahrenheit, and additional compatible Ebola Virus Disease symptoms Patient denies exposure to infectious person Patient denies travel to an Ebola-affected area in the 21 days before illness onset. Screenin:15 Abuse screen: Denies threats or abuse. Denies injuries from another. Nutritional rr5 screening: No deficits noted. Tuberculosis screening: No symptoms or risk factors identified. Fall Risk IV access (20 points). Ambulatory Aid- None/Bed Rest/Nurse Assist (0 pts). Gait- Weak (10 pts.). Total Caban Fall Scale indicates Low Risk Score (25-44 pts). Fall prevention measures have been instituted. Side Rails Up X 2 Placed close to Nursing Station Family Present and informed to notify staff if they need to leave bedside As available Patient and Family Educated on Fall Prevention Program and strategies. Assessment: 21:15 General: Appears in no apparent distress. comfortable, Behavior is calm, cooperative. rr5 Pain: Denies pain. 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 Full function Speech is normal, Facial symmetry appears normal, Reports weakness in generalized. Cardiovascular: Denies. Cardiovascular: Capillary refill < 3 seconds Patient's skin is warm and dry. Respiratory: Airway is patent Respiratory effort is even, unlabored, Respiratory pattern is regular, symmetrical. GI: Abdomen is round Reports nausea. : No signs and/or symptoms were reported regarding the genitourinary system. EENT: No signs and/or symptoms were reported regarding the EENT system. Derm: Skin is intact, Skin is pale. Musculoskeletal: Reports weakness in right arm, left arm, right leg and left leg. 23:00 Reassessment: Patient appears in no apparent distress at this time. Patient and/or rr5 family updated on plan of care and expected duration. Pain level reassessed. Bp rechecked 112/71mmhg Patient denies pain at this time. Patient states feeling better. Patient states symptoms have improved. 10/21 00:30 Reassessment: Patient appears in no apparent distress at this time. urine sample sent. rr5 feeling better as verbalized. BP 105/69mmHg Patient states feeling better. Patient states symptoms have improved. Vital Signs: 10/20 21:15 BP 93 / 53; Pulse 71; Resp 18; Temp 97.8(O); Pulse Ox 100% on R/A; Pain 0/10; rr5 21:15 Weight 90.72 kg; Height 5 ft. 9 in. (175.26 cm); Pain 0/10; rr5 22:00 BP 98 / 73; Pulse 71; Resp 17; Pulse Ox 99% on R/A; Pain 0/10; rr5 22:30 BP 107 / 68; Pulse 73; Resp 17; Pulse Ox 99% ; rr5 23:58 BP 120 / 69; Pulse 75; Resp 18; Pulse Ox 97% on R/A; mt 12 00:30 BP 105 / 69; Pulse 76; Resp 17; Pulse Ox 99% on R/A; rr5 02:00 BP 112 / 63; Pulse 72; Resp 16; Pulse Ox 99% on R/A; rr5 02:30 BP 105 / 66; Pulse 70; Resp 17; Temp 97.9(O); Pulse Ox 99% on R/A; rr5 10/20 21:15 Body Mass Index 29.53 (90.72 kg, 175.26 cm) rr5 ED Course: 10/20 21:12 Patient arrived in ED. al2 21:13 Sharif Sheehan DO is Private Physician. al2 21:15 Maintain EMS IV. Dressing intact. Site clean \T\ dry. Gauge \T\ site: 18 right AC. rr 5 21:15 Patient has correct armband on for positive identification. Placed in gown. Call light rr5 in reach. Side rails up X 1. secured entrance monitor on. Pulse ox on. NIBP on. 21:15 Warm blanket given. rr5 21:23 Pa Streeter RN is Primary Nurse. rr5 21:25 EKG done, by ED staff, reviewed by Bruce Carbajal MD. mt 21:30 Inserted saline lock: 20 gauge in left antecubital area, using aseptic technique. Blood rr5 collected. 21:34 Triage completed. rr5 22:00 Wendy Morrison [facility]-C [facility]. snw 22:00 Arm band placed on. rr5 22:01 Bruce Carbajal MD is Attending Physician. snw 12 00:25 IV discontinued, Pressure dressing applied, pain at IV site left G20 AC removed. rr5 00:56 Yaquelin Saldana MD is Hospitalizing Provider. snw 02:30 Patient admitted, IV remains in place. rr5 02:56 No provider procedures requiring assistance completed. rr5 Administered Medications: 10/20 22:00 Drug: NS 0.9% 500 ml Route: IV; Rate: bolus; Site: left antecubital; rr5 12 00:30 Follow up: Response: No adverse reaction; IV Status: Completed infusion; IV Intake: rr5 500ml 00:24 Drug: HydroCORTISONE 100 mg Route: IVP; Site: right antecubital; rr5 02:16 Follow up: Response: No adverse reaction rr5 00:55 Drug: NS 0.9% 500 ml Route: IV; Rate: bolus; Site: right antecubital; rr5 02:16 Follow up: Response: No adverse reaction; IV Status: Completed infusion; IV Intake: rr5 500ml Point of Care Testing: Blood Glucose: 02:54 Blood Glucose: 176 mg/dL; rr5 Ranges: Intake: 00:30 IV: 500ml; Total: 500ml. rr5 02:16 IV: 500ml; Total: 1000ml. rr5 Outcome: 00:57 Decision to Hospitalize by Provider. snw 02:30 Admitted to Med/surg accompanied by nurse, via stretcher, Report called to Patricia GARCIA rr5 02:30 Condition: stable 02:30 Instructed on the need for admit. 02:57 Patient left the ED. rr5 Signatures: Wendy Morrisno FNP-C FNP-Vivienne Elliott mt, Pa Wilkinson RN RN rr5 Corrections: (The following items were deleted from the chart) 10/20 22:10 21:20 Home Meds: aspirin 81 mg Oral chew 1 tab once daily; rr5 rr5
[2018-10-21] MEDS ORDERED: ONDANSETRON 4 MG/2 ML VIAL IV PRN (01:00)
[2018-10-21] MEDS ORDERED: ACETAMINOPHEN 500 MG TAB PO PRN (01:00)
[2018-10-21] MEDS ORDERED: MORPHINE 2 MG/ML SYR IV PRN (01:00)
[2018-10-21] MEDS ORDERED: NA CHLORIDE 0.9% 500 ML ONE (01:02)
[2018-10-21 01:03] LABS: Urine Culture Reflex Order NOT NEEDED; Urine Mucus 3+ /HPF (NONE SEEN); Urine RBC <5 /HPF (NONE SEEN)
[2018-10-21 01:05] LABS: Urine Bacteria <20 /HPF (NONE SEEN)
[2018-10-21 01:50] LABS: Urine Blood NEGATIVE (NEG); Urine Glucose NEGATIVE (NEG); Urine Protein 1+ (NEG); Urine Specific Gravity >1.030 (1.005-1.030)
[2018-10-21] MEDS: NA CHLORIDE 0.9% 1,000 ML IV SCH ×2 (03:34→14:20)
[2018-10-21] MEDS ORDERED: GLUCAGON 1 MG/VIAL IM PRN (08:02)
[2018-10-21] MEDS ORDERED: D50W 25 GM/50 ML SYRINGE IV PRN (08:02)
--- NOTE | 2018-10-21 08:28 | EKG ---
Test Date: 2018-10-20 Test Time: 21:20:01 Preconstruction Manager: SILVERIO MEASUREMENT RESULTS: Intervals: Rate: 71 UT: 192 QRSD: 94 QT: 378 QTc: 410 [place]: P: 25 UT: 192 QRS: -46 T: 51 INTERPRETIVE STATEMENTS: Normal sinus rhythm with sinus arrhythmia Incomplete right bundle branch block Left axis Abnormal ECG Compared to ECG 03/09/2018 01:12:35 Atrial premature complex(es) no longer present Electronically Signed On 10-21-18 08:27:56 POLICE DETECTIVE by Theo Ybarra
[2018-10-21] MEDS ORDERED: EPLERENONE 50 MG PO SCH (09:00)
[2018-10-21] MEDS: INSULIN -REGULAR HUMAN 50 UNIT/0.5 ML ML SQ SCH ×4 (09:01→21:27)
[2018-10-21] MEDS: CLOPIDOGREL 75 MG TABLET PO SCH (09:21)
[2018-10-21] MEDS: BUSPIRONE HCL 15 MG TABLET PO SCH ×2 (09:21→21:28)
[2018-10-21] MEDS: INSULIN GLARGINE 100 UNITS/ML SQ SCH (09:21)
--- NOTE | 2018-10-21 10:07 | P.HP ---
Certification for Inpatient Patient admitted to: Observation With expected LOS: <2 Midnights Patient will require the following post-hospital care: None Practitioner: I am a practitioner with admitting privileges, knowledge of patient current condition, hospital course, and medical plan of care. Services: Services provided to patient in accordance with Admission requirements found in Title 42 Section 412.3 of the Code of Federal Regulations Patient History Date of Service: 10/21/18 Reason for admission: Generalized weakness and near syncope History of Present Illness: Patient is a 68-year-old gentleman who came to the hospital with lightheadedness. Patient had generalized weakness. Patient has not done anything new per her recollection. According to his , they had just eaten lunch. Afterwards he was really weak. She left of for short while in when she returned she heard him stumbling. He was falling but caught himself. He almost passed out so she brought him into the hospital. Patient was admitted for observation. Allergies No Known Allergies Allergy (Verified 10/21/18 03:45) Home Medications: Atorvastatin Calcium [Lipitor] 40 mg PO BEDTIME 10/21/18 Buspirone HCl 15 mg PO BID 10/21/18 Carvedilol [Coreg] 25 mg PO BID 10/21/18 Clopidogrel Bisulfate [Plavix*] 1 tab PO DAILY 10/21/18 Doxazosin [Cardura*] 3 mg PO DAILY 6PM 10/21/18 Doxazosin [Cardura*] 3 tab PO DAILY 10/21/18 Eplerenone 50 mg PO DAILY 10/21/18 Insulin Aspart [Novolog Flexpen] See Protocol SQ ACHS 10/21/18 Insulin Degludec [Tresiba Flextouch U-100] 12 unit SQ DAILY 10/21/18 Losartan Potassium [Cozaar] 50 mg PO DAILY 10/21/18 Losartan Potassium [Cozaar] 50 mg PO DAILY 6PM 10/21/18 hydroCHLOROthiazide [Hydrodiuril*] 1 tab PO DAILY 10/21/18 - Past Medical/Surgical History Has patient received pneumonia vaccine in the past: No Diabetic: Yes -: BPH -: hypertension -: diabetes -: stroke -: carpal tunnel -: knee surgery - Family History Mother Medical History: Heart disease - Social History Smoking Status: Never smoker Alcohol use: Yes CD- Drugs: No Caffeine use: No Place of Residence: Home Review of Systems 10-point ROS is otherwise unremarkable Physical Examination - Vital Signs Temperature: 97.8 F Blood Pressure: 130/70 Pulse: 78 Respirations: 17 Pulse Ox (%): 95 - Physical Exam General: Alert, In no apparent distress, Oriented x3 HEENT: Atraumatic, PERRLA, Mucous membr. moist/pink, EOMI, Sclerae nonicteric Neck: Supple, 2+ carotid pulse no bruit, No LAD, Without JVD or thyroid abnormality Respiratory: Clear to auscultation bilaterally, Normal air movement Cardiovascular: Regular rate/rhythm, Normal S1 S2, No murmurs Gastrointestinal: Normal bowel sounds, Soft and benign, Non-distended, No tenderness Musculoskeletal: No clubbing, No swelling, No tenderness Integumentary: No rashes Neurological: Normal gait, Normal speech, Normal strength at 5/5 x4 extr, Normal tone, Normal affect Lymphatics: No axilla or inguinal lymphadenopathy - Studies Laboratory Data (last 24 hrs) 10/20/18 21:55: PT 12.6 H, INR 1.07 10/20/18 21:55: WBC 8.1, Hgb 11.8 L, Hct 32.2 L, Plt Count 160 10/20/18 21:55: Sodium 141, Potassium 3.9, BUN 23 H, Creatinine 1.10, Glucose 83 , Magnesium 1.9, Total Bilirubin 0.5, AST 16, ALT 23, Alkaline Phosphatase 53 Microbiology Data (last 24 hrs): 10/20/18 22:37 Nasopharnyx Influenza Type A Antigen Screen - Final 10/20/18 22:37 Nasopharnyx Influenza Type B Antigen Screen - Final Assessment & Plan - Problems (Diagnosis) (1) Near syncope Current Visit: Yes Status: Acute (2) HTN (hypertension) Current Visit: Yes Status: Acute (3) CVA (cerebral vascular accident) Current Visit: Yes Status: Acute (4) DM2 (diabetes mellitus, type 2) Current Visit: Yes Status: Acute Qualifiers: 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 ECHO AND CAROTID DOPPLER 2. ORTHOSTATICS 3. GENTLE HYDRATION 4. MONITOR VITALS AND CHECK ELECTROLYTES 5. GI AND DVT PROPHYLAXIS - Advance Directives Does patient have a Living Will: No Does patient have a Durable POA for Healthcare: No
[2018-10-21 12:01] LABS: Absolute Lymphocytes (CBC) 0.4 K/uL (0.7-4.9); Absolute Monocytes 0.3 K/uL (0.1-1.3); Absolute Neutrophil 5.9 K/uL (1.8-8.0); Basophils % 0.2 % (0-1.3); Hematocrit 34.3 % (39.6-49.0); Lymphocytes % 5.3 % (15.3-44.8); MCH 30.8 pg (27.0-35.0); MPV 8.5 fL (7.6-11.3); Monocytes % 5.2 % (3.3-12.3)
[2018-10-21 12:20] LABS: Albumin 3.2 g/dL (3.4-5.0); Bilirubin Total 0.6 mg/dL (0.2-1.0); Phosphorus 3.9 mg/dL (2.5-4.9); Protein, Total 5.9 g/dL (6.4-8.2)
[2018-10-21] MEDS ORDERED: HYDRALAZINE HCL 20 MG/ML VIAL IV PRN (12:48)
--- NOTE | 2018-10-21 12:55 | P.PN ---
Subjective Date of Service: 10/21/18 Primary Care Provider: Dr. Sheehan Chief Complaint: Generalized weakness and near syncope Subjective: Other (Patient doing better than yesterday. No significant chest pain, shortness of breath. Dizziness improved.) Physical Examination - Vital Signs Temperature: 97.8 F Blood Pressure: 130/70 Pulse: 78 Respirations: 17 Pulse Ox (%): 95 - Physical Exam General: Alert, In no apparent distress, Oriented x3, Cooperative HEENT: Atraumatic Neck: Supple Respiratory: Clear to auscultation bilaterally, Normal air movement Cardiovascular: Normal pulses, Regular rate/rhythm Gastrointestinal: Normal bowel sounds, Soft and benign, Non-distended, No tenderness, No masses, No rebound, No guarding Musculoskeletal: No erythema, No tenderness, No warmth Integumentary: No tenderness/swelling, No erythema, No warmth, No cyanosis Neurological: Normal speech, Normal strength at 5/5 x4 extr, Normal tone, Normal affect - Studies Laboratory Data (last 24 hrs) 10/20/18 21:55: PT 12.6 H, INR 1.07 10/20/18 21:55: WBC 8.1, Hgb 11.8 L, Hct 32.2 L, Plt Count 160 10/20/18 21:55: Sodium 141, Potassium 3.9, BUN 23 H, Creatinine 1.10, Glucose 83 , Magnesium 1.9, Total Bilirubin 0.5, AST 16, ALT 23, Alkaline Phosphatase 53 Microbiology Data (last 24 hrs): 10/20/18 22:37 Nasopharnyx Influenza Type A Antigen Screen - Final 10/20/18 22:37 Nasopharnyx Influenza Type B Antigen Screen - Final Medications List Reviewed: Yes Assessment & Plan Discharge Plan: Home Plan to discharge in: 24 Hours Physician Review Additional Text: Impression: Presyncope likely from dehydration and hypotension related to medication with underlying hypertension. Diabetes mellitus type 2, insulin dependent History of CVA Anxiety disorder Anemia likely of chronic disease Plan: Presyncope likely from dehydration and hypotension related to medication with underlying hypertension: Blood pressure medications reviewed. He reports he got a new medication of different color and texture that was his Doxazosin. He reports that the new medication caused his BP to go low. I have asked for is family to bring in the medications so that pharmacy can evaluate the medication. This is likely a generic medication. For right now will continue to hold his blood pressure medication. Will check orthostatics. Patient takes multiple medications are ready for blood pressure including losartan 50 mg 1 pill twice daily, carvedilol 325 mg 1 pill twice daily, hydrochlorothiazide 25 mg daily, and eplerone 50 mg daily. Will monitor blood pressure closely. As this increases then will restart medications. Will can need to consider to holding Doxazosin. Will discuss with his PCP who has been consulted. Diabetes mellitus type 2, insulin dependent: Patient takes basal insulin. Will start basal insulin at this time. Will continue Accu-Cheks with sliding scale. History of CVA: Will continue with Plavix. Will continue with DVT prophylaxis. Will have physical therapy assess ambulation. Anxiety disorder: Will continue with his medication. Anemia likely of chronic disease: Will check iron and B12 studies. Will check tsh and free T4. Time Spent Managing Pts Care (In Minutes): 55
[2018-10-21 14:07] LABS: Ferritin 164.8 ng/mL (26-388)
[2018-10-21] MEDS ORDERED: ENOXAPARIN 40 MG/0.4 ML SQ SCH (17:00)
[2018-10-21] MEDS ORDERED: CARVEDILOL 25 MG TAB PO SCH (21:00)
[2018-10-21] MEDS ORDERED: ATORVASTATIN 40 MG TAB PO SCH (21:00)
[2018-10-21] MEDS ORDERED: DOXAZOSIN 2 MG TAB PO SCH ×2 (21:00)
[2018-10-22] MEDS: NA CHLORIDE 0.9% 1,000 ML IV SCH (00:07)
[2018-10-22 05:16] LABS: Absolute Lymphocytes (CBC) 1.1 K/uL (0.7-4.9); Absolute Monocytes 0.5 K/uL (0.1-1.3); Absolute Neutrophil 2.8 K/uL (1.8-8.0); Basophils % 0.3 % (0-1.3); Eosinophils % 2.1 % (0-4.4); Hematocrit 29.4 % (39.6-49.0); Lymphocytes % 24.8 % (15.3-44.8); MCH 30.8 pg (27.0-35.0); MCV 86.9 fL (80-100); MPV 9.1 fL (7.6-11.3); Monocytes % 10.9 % (3.3-12.3); RBC Red Blood Cell Count 3.38 M/uL (4.33-5.43)
[2018-10-22 05:44] LABS: Albumin 2.6 g/dL (3.4-5.0); Bilirubin Total 0.4 mg/dL (0.2-1.0); Potassium 3.4 mmol/L (3.5-5.1); Thyroid Stimulating Hormone 2.02 uIU/mL (0.360-3.740)
[2018-10-22] MEDS: INSULIN -REGULAR HUMAN 50 UNIT/0.5 ML ML SQ SCH ×2 (07:30→12:17)
--- NOTE | 2018-10-22 07:33 | RAD REPORT ---
EXAM DESCRIPTION: - CP - 10/21/2018 10:51 pm CLINICAL HISTORY: Syncope COMPARISON: None. TECHNIQUE: Real-time sonographic evaluation of both carotid systems was performed. Gill scale and Do ppler interrogation were performed with waveform tracing bilaterally. FINDINGS: Normal high resistance waveforms are noted in both external carotid arteries. The common c arotid arteries and internal carotid arteries show normal low resistance waveforms. Mild bilateral calcified and noncalcified plaquing changes. On visual inspection no significant lumin al narrowing seen. There is no dissection identified. Flow restricting plaque is not evident. Peak sy stolic and end diastolic velocity values and the ICA/CCA ratios are in the non-hemodynamically signif icant range. Antegrade flow seen in both vertebral arteries. Velocity values and ratios were recorded and are retained in the patient's imaging records. IMPRESSION: Calcified and noncalcified plaquing changes are present in the bilateral carotid vascula ture. Currently no hemodynamically significant stenosis.
[2018-10-22] MEDS: CLOPIDOGREL 75 MG TABLET PO SCH (08:28)
[2018-10-22] MEDS: BUSPIRONE HCL 15 MG TABLET PO SCH (08:28)
[2018-10-22] MEDS: INSULIN GLARGINE 100 UNITS/ML SQ SCH (08:28)
[2018-10-22] MEDS ORDERED: EPLERENONE PO SCH (09:00)
--- NOTE | 2018-10-22 14:36 | P.DS ---
Admission Date: 10/21/18 Discharge Date: 10/22/18 Primary Care Provider: Dr. Sheehan Disposition: ROUTINE DISCHARGE Discharge Condition: GOOD Reason for Admission: Generalized weakness and near syncope Consultations: Nephrology-Dr. Couch Procedures: Carotid doppler: COMPARISON: None. TECHNIQUE: Real-time sonographic evaluation of both carotid systems was performed. Gill scale and Doppler interrogation were performed with waveform tracing bilaterally. FINDINGS: Normal high resistance waveforms are noted in both external carotid arteries. The common carotid arteries and internal carotid arteries show normal low resistance waveforms. Mild bilateral calcified and noncalcified plaquing changes. On visual inspection no significant luminal narrowing seen. There is no dissection identified. Flow restricting plaque is not evident. Peak systolic and end diastolic velocity values and the ICA/CCA ratios are in the non-hemodynamically significant range. Antegrade flow seen in both vertebral arteries. Velocity values and ratios were recorded and are retained in the patient's imaging records. IMPRESSION: Calcified and noncalcified plaquing changes are present in the bilateral carotid vasculature. Currently no hemodynamically significant stenosis. CXR: COMPARISON: Chest Single View dated 03/09/2018 FINDINGS: Portable technique limits examination quality. The lungs are grossly clear. The heart is normal in size. No displaced fractures. IMPRESSION: No acute intrathoracic process suspected. Medical Problem list: Presyncope likely from dehydration and hypotension related to medication with underlying hypertension. Diabetes mellitus type 2, insulin dependent History of CVA Anxiety disorder Hyperlipidemia Anemia likely of chronic disease with noted iron def. anemia Brief History of Present Illness: 68-year-old male presented to emergency room with weakness and dizziness. Patient reports taking multiple medications for hypertension. He recently got a new brand of medication from the pharmacy. After taking the new brand he reported low blood pressure. The patient was evaluated the emergency room. He was admitted for further evaluation. Hospital Course: Patient presented with presyncope likely from dehydration and hypotension related to medication. Patient with underlying hypertension. Patient takes multiple medications for blood pressure. Patient received a new brand of medication recently by mail. This is when he noted changes. During the course of his stay patient was taken off blood pressure medication which included losartan 50 mg 1 pill twice daily, carvedilol 25 mg 1 pill twice daily, hydrochlorothiazide 25 mg daily, doxazosin 3 mg one pill twice daily, and eplerone 50 mg daily. Patient did well off medication. Blood pressure slightly increased prior to discharge. Orthostatics obtained, patient asymptomatic. Case discussed with nephrology who takes care of the patient. At discharge patient will be started on carvedilol 6.25 mg 1 pill twice daily. He is to hold this blood pressure medication if systolic less than 100. He is to keep a record of his blood pressures at least 3 times a day. He is to follow up with his PCP tomorrow to go over his blood pressure. Further adjustment in medication will be done by his PCP tomorrow. Fall precautions in place. At discharge he will hold his other medication including: losartan, hydrochlorothiazide, doxazosin, and eplerone. Patient has diabetes mellitus type 2. He he will continue with his insulin therapy-Tresiba 12 units subcu daily and NovoLog sliding scale. Recommendation is to maintain blood sugars less 140 fasting and less than 200 after meals. Further adjustment can be done by his PCP. Patient with history of CVA. Patient will continue with Plavix 75 mg daily. Fall precautions in place. Patient has history of anxiety. He will continue with his medication-buspirone 15 mg 1 pill twice daily. Patient has hyperlipidemia. He will continue with his medication Lipitor 40 mg daily. Patient with anemia of chronic disease with noted iron deficiency. At discharge he will be started on iron 325 mg 1 pill daily. Recommendation to recheck CBC in 1 week to monitor his progress. Patient may benefit with GI evaluation as an outpatient. Vital Signs/Physical Exam: Temp Pulse Resp BP Pulse Ox 98 F 64 16 143/67 H 97 10/22/18 12:00 10/22/18 12:00 10/22/18 12:00 10/22/18 12:00 10/22/18 12:00 General: Alert, In no apparent distress, Oriented x3, Cooperative HEENT: Atraumatic Neck: Supple Respiratory: Clear to auscultation bilaterally, Normal air movement Cardiovascular: Normal pulses, Regular rate/rhythm Gastrointestinal: Normal bowel sounds, Soft and benign, Non-distended, No ascites, No tenderness, No masses, No rebound, No guarding Musculoskeletal: No erythema, No tenderness, No warmth Integumentary: No tenderness/swelling, No erythema, No warmth, No cyanosis Neurological: Normal speech, Normal strength at 5/5 x4 extr, Normal tone, Normal affect Laboratory Data at Discharge: WBC 4.6 K/uL (4.3-10.9) D 10/22/18 04:26 Hgb 10.4 g/dL (13.6-17.9) L 10/22/18 04:26 Hct 29.4 % (39.6-49.0) L 10/22/18 04:26 Plt Count 135 K/uL (152-406) L 10/22/18 04:26 PT 12.6 SECONDS (9.5-12.5) H 10/20/18 21:55 INR 1.07 10/20/18 21:55 Sodium 141 mmol/L (136-145) 10/22/18 04:26 Potassium 3.4 mmol/L (3.5-5.1) L 10/22/18 04:26 BUN 21 mg/dL (7-18) H 10/22/18 04:26 Creatinine 1.00 mg/dL (0.55-1.3) 10/22/18 04:26 Glucose 94 mg/dL (74-106) 10/22/18 04:26 Phosphorus 3.9 mg/dL (2.5-4.9) 10/21/18 11:53 Magnesium 2.0 mg/dL (1.8-2.4) 10/21/18 11:53 Total Bilirubin 0.4 mg/dL (0.2-1.0) 10/22/18 04:26 AST 12 U/L (15-37) L 10/22/18 04:26 ALT 18 U/L (12-78) 10/22/18 04:26 Alkaline Phosphatase 47 U/L (45-117) 10/22/18 04:26 Home Medications: Atorvastatin Calcium [Lipitor] 40 mg PO BEDTIME 10/21/18 Buspirone HCl 15 mg PO BID 10/21/18 Clopidogrel Bisulfate [Plavix*] 1 tab PO DAILY 10/21/18 Insulin Aspart [Novolog Flexpen] See Protocol SQ ACHS 10/21/18 Insulin Degludec [Tresiba Flextouch U-100] 12 unit SQ DAILY 10/21/18 Carvedilol [Coreg] 6.25 mg PO BID #60 tab 10/22/18 Ferrous Sulfate [Ferrous Sulfate*] 325 mg PO DAILY #30 tab 10/22/18 New Medications: Carvedilol [Coreg] 6.25 mg PO BID #60 tab Ferrous Sulfate [Ferrous Sulfate*] 325 mg PO DAILY #30 tab Patient Discharge Instructions: 1. Patient will need a follow up with his PCP tomorrow to go over blood pressure medications and this hospitalization. 2. Patient presented with presyncope likely from dehydration and hypotension related to medication. Patient with underlying hypertension. Patient takes multiple medications for blood pressure. Patient received a new brand of medication recently by mail. This is when he noted changes. During the course of his stay patient was taken off blood pressure medication which included losartan 50 mg 1 pill twice daily, carvedilol 25 mg 1 pill twice daily, hydrochlorothiazide 25 mg daily, doxazosin 3 mg one pill twice daily, and eplerone 50 mg daily. Patient did well off medication. Blood pressure slightly increased prior to discharge. Orthostatics obtained, patient asymptomatic. Case discussed with nephrology who takes care of the patient. At discharge patient will be started on carvedilol 6.25 mg 1 pill twice daily. He is to hold this blood pressure medication if systolic less than 100. He is to keep a record of his blood pressures at least 3 times a day. He is to follow up with his PCP tomorrow to go over his blood pressure. Further adjustment in medication will be done by his PCP tomorrow. Fall precautions in place. At discharge he will hold his other medication including: losartan, hydrochlorothiazide, doxazosin, and eplerone. 3. Patient has diabetes mellitus type 2. He he will continue with his insulin therapy-Tresiba 12 units subcu daily and NovoLog sliding scale. Recommendation is to maintain blood sugars less 140 fasting and less than 200 after meals. Further adjustment can be done by his PCP. 4. Patient with history of CVA. Patient will continue with Plavix 75 mg daily. Fall precautions in place. 5. Patient has history of anxiety. He will continue with his medication-buspirone 15 mg 1 pill twice daily. 6. Patient has hyperlipidemia. He will continue with his medication Lipitor 40 mg daily. 7. Patient with anemia of chronic disease with noted iron deficiency. At discharge he will be started on iron 325 mg 1 pill daily. Recommendation to recheck CBC in 1 week to monitor his progress. Patient may benefit with GI evaluation as an outpatient. Diet: ADA Activity: Fall precautions Time spent managing pt's care (in minutes): 55
[2018-10-22] MEDS ORDERED: POTASSIUM CL SA 10 MEQ TAB PO ONE (15:00)
--- NOTE | 2018-10-22 19:18 | CON ---
Date of Consultation: 10/22/2018 NEPHROLOGY CONSULTATION History Of Present Illness: Mr. Jenkins is a 68-year-old male with past medical history significant for history of hypertension, who presented to [facility] with severe hypotension. The patie nt's states that he was checking his blood pressure, was noted to be in the 100s and then when h e rechecked, it was in the 80s, and he had he had stumbled and fallen and hence they came to the hosp ital for further evaluation. He was noted to be severely hypotensive when he came to the hospital wi th orthostatic hypotension. He has been started on IV fluids and his blood pressure seems to be impr oving at this time and he is feeling much better. The patient states that he and his are planni ng to go to [place] next week and in preparation, he had started a laxative to prevent him from getti ng constipation and bloated, since the last couple of weeks. Past Medical History: Significant for history of BPH, hypertension, hyperlipidemia, and insulin-depe ndent diabetes. Past Surgical History: Significant for history of carpal tunnel and knee surgery. Family History: Significant for mother with heart disease. Social History: No history of smoking, alcohol, or drug use reported. Lives at home with his . Review of Systems: Positive for weakness and lethargy with some dizziness. All other review of systems are negative. Physical Examination: Vital Signs: At this time, showing temperature of 97.8, heart rate of 64, respiratory rate 16, and b lood pressure 143/67. General: He appears in no acute distress. Lungs: Clear to auscultation. Auscultation of the heart reveals regular rate and rhythm. Abdomen: Soft. Extremities: Without any evidence of edema. Laboratory Data: Showing sodium of 141, potassium of 3.4, chloride of 26, BUN of 21, and creatinine of 1. Glucose has been running in the 200s range. CBC showing stable hemoglobin, hematocrit, and pl atelet count. Current Medications: Reviewed. He remains on normal saline at 75 mL an hour. Impression: 1.High orthostatic hypotension likely related to dehydration from use of laxatives. The patient is improving at this time. He was on multiple antihypertensives at home, including doxazosin, carvedilo l 25 mg b.i.d., losartan 50 mg b.i.d., and HCTZ. At this time, his blood pressure is significantly i mproved. However, he still remains slightly orthostatic with bradycardia. We will go ahead and decr ease his carvedilol to 6.25 b.i.d. Hold all other antihypertensives and was okay to be discharged ho nj on just carvedilol and follow up with Dr. Sheehan closely. 2.Mild hypokalemia. It is being repleted. 3.Type 2 diabetes. Continue insulin. 4.History of depression. Continue BuSpar. Plan: Overall, the patient is doing much better at this time. He is okay to be discharged from a ne phrology standpoint with a decreased blood pressure medications as discussed above. Follow up closel y with Dr. Sheehan. Plan was discussed with Dr. Simpson in detail and as well as Dr. Sheehan. VV/MODL Voice ID: [id number] Report ID: [id number]
[2018-10-23] MEDS ORDERED: FERROUS SULFATE 325 MG TAB PO SCH (09:00)
== END 2018-10-22 15:42 | disposition home or self-care (01) ==
LOC: ER 21:11 → ERHOLD 10-21 01:00 → 2ND 10-21 02:46
PROVIDERS: ADMIT Hospitalist; ATTEND Family Medicine
DX: I95.9 Hypotension, unspecified (principal); R55 Syncope and collapse; E86.0 Dehydration; E11.9 Type 2 diabetes mellitus without complications; Z86.73 Personal history of transient ischemic attack (TIA), and cerebral infarction without residual deficits; F41.9 Anxiety disorder, unspecified; E78.5 Hyperlipidemia, unspecified; D50.9 Iron deficiency anemia, unspecified; I10 Essential (primary) hypertension; N40.0 Benign prostatic hyperplasia without lower urinary tract symptoms
CPT/HCPCS: 36415 ×2; 71045; 80048; 80053 ×2; 80076; 82533; 82607; 82728; 82962 ×8; 83540; 83735 ×2; 83880; 84100; 84439; 84443; 84466; 84484; 85025 ×3; 85610; 87804 ×2; 93005; 93880; 96361; 96374; 97163; 99285; G0378 ×2; J1650; J1720; J7030 ×2; 81003; 81015

== ENCOUNTER 2019-01-13 00:35 | Emergency (ER) | payer OTHER ==
[2019-01-13] MEDS ORDERED: hydrOXYzine HCl 25 MG TAB ONE (01:35)
--- NOTE | 2019-01-13 02:44 | ER ---
Nurse's Notes [facility] Name: Toney Jenkins Age: 68 yrs Sex: Male : 1950 Arrival Date: 01/13/2019 Time: 00:37 Bed 16 Private MD: Sharif Sheehan Diagnosis: Sprain of other specified parts of left knee Presentation: 01/13 00:45 Presenting complaint: Patient states: My left knee is hurting and it is causing my ed1 blood pressure to go up. And now since I had a stroke in the past I am having a panic attack about my blood pressure. Transition of care: patient was not received from another setting of care. Onset of symptoms was January 13, 2019. Risk Assessment: Do you want to hurt yourself or someone else? Patient reports no desire to harm self or others. Initial Sepsis Screen: Does the patient meet any 2 criteria? No. Patient's initial sepsis screen is negative. Does the patient have a suspected source of infection? No. Patient's initial sepsis screen is negative. Care prior to arrival: None. 00:45 Method Of Arrival: Ambulatory ed1 00:45 Acuity: DANII 3 ed1 Triage Assessment: 00:49 General: Appears in no apparent distress. Behavior is calm, cooperative. Pain: ed1 Complains of pain in left knee Pain currently is 10 out of 10 on a pain scale. Historical: - Allergies: 00:49 No Known Allergies; ed1 - Home Meds: 00:49 atorvastatin 40 mg Oral tab 1 tab once daily [Active]; buspirone 15 mg Oral tab 2 times ed1 per day [Active]; carvedilol 25 mg Oral tab 1 tab 2 times per day [Active]; clopidogrel 75 mg Oral tab 1 tab once daily [Active]; tresiba 12 unit am and 12 units pm [Active]; Novolog Sub-Q as needed [Active]; eplerenone 50 mg Oral tab 1 tab once daily [Active]; hydrochlorothiazide 25 mg Oral tab 1 tab once daily [Active]; losartan 100 mg Oral tab 0.5 tab twice a day [Active]; doxazosin 5 mg Oral 1 tab twice a day [Active]; - PMHx: 00:49 BPH; Diabetes - IDDM; Hypertension; CVA; ed1 - PSHx: 00:49 Carpal Tunnel Repair; Knee surgery; ed1 - Immunization history:: Adult Immunizations up to date. - Social history:: Smoking status: Patient/guardian denies using tobacco. - Ebola Screening: : Patient negative for fever greater than or equal to 101.5 degrees Fahrenheit, and additional compatible Ebola Virus Disease symptoms Patient denies exposure to infectious person Patient denies travel to an Ebola-affected area in the 21 days before illness onset No symptoms or risks identified at this time. Screenin:48 Abuse screen: Denies threats or abuse. Denies injuries from another. Nutritional cc3 screening: No deficits noted. Tuberculosis screening: No symptoms or risk factors identified. Fall Risk Ambulatory Aid- None/Bed Rest/Nurse Assist (0 pts). Gait- Normal/Bed Rest/Wheelchair (0 pts) Mental Status- Oriented to own ability (0 pts). Assessment: 00:49 General: see triage assessment. cc3 01:18 Reassessment: Patient appears in no apparent distress at this time. Patient and/or cc3 family updated on plan of care and expected duration. Pain level reassessed. Patient is alert, oriented x 3, equal unlabored respirations, skin warm/dry/pink. 02:21 Reassessment: Patient appears in no apparent distress at this time. Patient and/or cc3 family updated on plan of care and expected duration. Pain level reassessed. Patient is alert, oriented x 3, equal unlabored respirations, skin warm/dry/pink. 03:30 Reassessment: Patient appears in no apparent distress at this time. Patient and/or cc3 family updated on plan of care and expected duration. Pain level reassessed. Patient is alert, oriented x 3, equal unlabored respirations, skin warm/dry/pink. Dr. Carbajal discharged the patient home with prescription given. No IV cannula in situ. Patient left ER vitally stable by wheelchair with his . Vital Signs: 00:49 BP 153 / 89; Pulse 67; Resp 16; Temp 98.2(TE); Pulse Ox 97% on R/A; Weight 91.63 kg; ed1 Height 5 ft. 9 in. (175.26 cm); Pain 10/10; 01:15 BP 156 / 85; Pulse 76; Resp 18 S; Pulse Ox 100% on R/A; cc3 02:18 BP 149 / 77; Pulse 61; Resp 16 S; Pulse Ox 96% on R/A; cc3 03:15 BP 138 / 78; Pulse 64; Resp 17 S; Pulse Ox 97% on R/A; cc3 00:49 Body Mass Index 29.83 (91.63 kg, 175.26 cm) ed1 ED Course: 00:37 Patient arrived in ED. ds1 00:38 Sharif Sheehan DO is Private Physician. ds1 00:46 Triage completed. ed1 00:48 Madison Clifford is Primary Nurse. cc3 00:48 Patient has correct armband on for positive identification. Bed in low position. Call cc3 light in reach. Side rails up X 1. Pulse ox on. NIBP on. 00:49 Arm band placed on. ed1 01:00 Bruce Carbajal MD is Attending Physician. gs 03:02 Knee Left 3 View XRAY In Process Unspecified. EDMS 03:30 No provider procedures requiring assistance completed. Patient did not have IV access cc3 during this emergency room visit. Administered Medications: 01:20 Drug: hydrOXYzine 25 mg Route: PO; cc3 02:00 Follow up: Response: No adverse reaction; Anxiety decreased cc3 Outcome: 02:43 Discharge ordered by . gs 03:30 Discharged to home via wheelchair, with family. cc3 03:30 Condition: stable 03:30 Discharge instructions given to patient, family, Instructed on discharge instructions, follow up and referral plans. medication usage, Demonstrated understanding of instructions, follow-up care, medications, Prescriptions given X 1. 03:41 Patient left the ED. cc3 Signatures: Dispatcher [employer] [facility] JohnsonSirisha foster ds1 Bonnie Suárez, RADHA RN ed1 Bruce Carbajal MD MD gs Cordel, Charlene cc3
--- NOTE | 2019-01-13 02:44 | EDPHYS ---
Physician Documentation [facility] Name: Toney Jenkins Age: 68 yrs Sex: Male : 1950 Arrival Date: 01/13/2019 Time: 00:37 Bed 16 Private MD: Sharif Sheehan ED Physician Bruce Carbajal HPI: 01/13 02:40 This 68 yrs old Male presents to ER via Ambulatory with complaints of Knee gs Pain, Blood Pressure Problem, Anxiety. 02:40 The patient presents with an injury. The complaints affect the left knee. Context: gs resulted from twisting of the extremity. Onset: The symptoms/episode began/occurred yesterday. Modifying factors: the symptoms are aggravated by bending knee. Associated signs and symptoms: Pertinent negatives calf tenderness, fever, numbness, swelling. Severity of symptoms: At their worst the symptoms were moderate, in the emergency department the symptoms are unchanged. The patient has not experienced similar symptoms in the past. Historical: - Allergies: 00:49 No Known Allergies; ed1 - Home Meds: 00:49 atorvastatin 40 mg Oral tab 1 tab once daily [Active]; buspirone 15 mg Oral tab 2 times ed1 per day [Active]; carvedilol 25 mg Oral tab 1 tab 2 times per day [Active]; clopidogrel 75 mg Oral tab 1 tab once daily [Active]; tresiba 12 unit am and 12 units pm [Active]; Novolog Sub-Q as needed [Active]; eplerenone 50 mg Oral tab 1 tab once daily [Active]; hydrochlorothiazide 25 mg Oral tab 1 tab once daily [Active]; losartan 100 mg Oral tab 0.5 tab twice a day [Active]; doxazosin 5 mg Oral 1 tab twice a day [Active]; - PMHx: 00:49 BPH; Diabetes - IDDM; Hypertension; CVA; ed1 - PSHx: 00:49 Carpal Tunnel Repair; Knee surgery; ed1 - Immunization history:: Adult Immunizations up to date. - Social history:: Smoking status: Patient/guardian denies using tobacco. - Ebola Screening: : Patient negative for fever greater than or equal to 101.5 degrees Fahrenheit, and additional compatible Ebola Virus Disease symptoms Patient denies exposure to infectious person Patient denies travel to an Ebola-affected area in the 21 days before illness onset No symptoms or risks identified at this time. ROS: 02:40 Psych: Positive for anxiety, sp cva. gs 02:40 All other systems are negative. Exam: 02:40 Eyes: Pupils equal round and reactive to light, extra-ocular motions intact. Lids and gs lashes normal. Conjunctiva and sclera are non-icteric and not injected. Cornea within normal limits. Periorbital areas with no swelling, redness, or edema. ENT: Nares patent. No nasal discharge, no septal abnormalities noted. Tympanic membranes are normal and external auditory canals are clear. Oropharynx with no redness, swelling, or masses, exudates, or evidence of obstruction, uvula midline. Mucous membranes moist. Cardiovascular: Regular rate and rhythm with a normal S1 and S2. No gallops, murmurs, or rubs. Normal PMI, no JVD. No pulse deficits. Abdomen/GI: Soft, non-tender, with normal bowel sounds. No distension or tympany. No guarding or rebound. No evidence of tenderness throughout. Back: No spinal tenderness. No costovertebral tenderness. Full range of motion. Skin: Warm, dry with normal turgor. Normal color with no rashes, no lesions, and no evidence of cellulitis. 02:40 Constitutional: The patient appears alert, awake. 02:40 Musculoskeletal/extremity: Extremities: noted in the left knee: pain, ROM: limited active range of motion due to pain, limited passive range of motion due to pain, Pulses: are normal with no appreciated deficits, Sensation intact. 02:40 Neuro: Exam negative for acute changes. Vital Signs: 00:49 BP 153 / 89; Pulse 67; Resp 16; Temp 98.2(TE); Pulse Ox 97% on R/A; Weight 91.63 kg; ed1 Height 5 ft. 9 in. (175.26 cm); Pain 10/10; 01:15 BP 156 / 85; Pulse 76; Resp 18 S; Pulse Ox 100% on R/A; cc3 02:18 BP 149 / 77; Pulse 61; Resp 16 S; Pulse Ox 96% on R/A; cc3 03:15 BP 138 / 78; Pulse 64; Resp 17 S; Pulse Ox 97% on R/A; cc3 00:49 Body Mass Index 29.83 (91.63 kg, 175.26 cm) ed1 MDM: 01:10 Patient medically screened. gs 02:40 Differential diagnosis: closed fracture, contusion, abrasion. Data reviewed: vital gs signs, nurses notes. Counseling: I had a detailed discussion with the patient and/or guardian regarding: the historical points, exam findings, and any diagnostic results supporting the discharge/admit diagnosis, radiology results, the need for outpatient follow up, a orthopedic surgeon. Response to treatment: the patient's symptoms have markedly improved after treatment, and as a result, I will discharge patient. 01/13 01:10 Order name: Knee Left 3 View XRAY gs Administered Medications: 01:20 Drug: hydrOXYzine 25 mg Route: PO; cc3 02:00 Follow up: Response: No adverse reaction; Anxiety decreased cc3 Disposition: 01/13/19 02:43 Discharged to Home. Impression: Sprain of other specified parts of left knee. - Condition is Stable. - Discharge Instructions: Generalized Anxiety Disorder, Managing Your Hypertension. - Prescriptions for Hydroxyzine HCl 25 mg Oral Tablet - take 1 tablet by ORAL route every 12 hours As needed; 12 tablet. - Medication Reconciliation Form, Thank You Letter, Antibiotic Education, Prescription Opioid Use form. - Follow up: Private Physician; When: 1 - 2 days; Reason: Re-evaluation by your physician. Signatures: Dispatcher [employer] EDBonnie Pagan RN RN ed1 Bruce Carbajal MD MD gs Cordel, Charlene cc3 Corrections: (The following items were deleted from the chart) 03:41 02:43 01/13/2019 02:43 Discharged to Home. Impression: Sprain of other specified parts cc3 of left knee. Condition is Stable. Forms are Medication Reconciliation Form, Thank You Letter, Antibiotic Education, Prescription Opioid Use. Follow up: Private Physician; When: 1 - 2 days; Reason: Re-evaluation by your physician.
--- NOTE | 2019-01-13 10:39 | RAD REPORT ---
EXAM DESCRIPTION: RAD - Knee Left 3 View - 01/13/2019 2:09 am CLINICAL HISTORY: PAIN Trauma, pain COMPARISON: No comparisons FINDINGS: A small suprapatellar joint effusion is present. No acute fracture or dislocation evident. Soft tissue swelling is seen involving the patellar tendon.
== END 2019-01-13 03:41 | disposition home or self-care (01) ==
LOC: ER 00:35
DX: S83.8X2A Sprain of other specified parts of left knee, initial encounter (principal); X50.1XXA Overexertion from prolonged static or awkward postures, initial encounter; E11.9 Type 2 diabetes mellitus without complications; I10 Essential (primary) hypertension; N40.0 Benign prostatic hyperplasia without lower urinary tract symptoms; Z86.73 Personal history of transient ischemic attack (TIA), and cerebral infarction without residual deficits; Z79.4 Long term (current) use of insulin
CPT/HCPCS: 99284

== ENCOUNTER 2019-03-23 03:46 | Observation (INO) | payer OTHER ==
[2019-03-23] MEDS ORDERED: NA CHLORIDE 0.9% 1,000 ML ONE (04:36)
[2019-03-23] MEDS ORDERED: ACETAMINOPHEN 325 MG TABLET ONE (04:54)
[2019-03-23 05:00] LABS: Absolute Lymphocytes (CBC) 0.2 K/uL (0.7-4.9); Absolute Monocytes 0.5 K/uL (0.1-1.3); Basophils % 0.1 % (0-1.3); Eosinophils % 0.5 % (0-4.4); Hematocrit 33.2 % (39.6-49.0); Lymphocytes % 2.6 % (15.3-44.8); MPV 8.8 fL (7.6-11.3); Monocytes % 7.9 % (3.3-12.3); Protime INR 1.13; RBC Red Blood Cell Count 3.82 M/uL (4.33-5.43)
[2019-03-23] MEDS ORDERED: CEFTRIAXONE/SWI 1gm 1 GM/10 ML SYR ONE (05:01)
[2019-03-23 05:16] LABS: ALT/SGPT 17 U/L (12-78); AST/SGOT 13 U/L (15-37); Albumin 2.8 g/dL (3.4-5.0); Alkaline Phosphatase 63 U/L (45-117); BUN Blood Urea Nitrogen 22 mg/dL (7-18); Bicarbonate 26 mmol/L (21-32); Bilirubin Direct 0.2 mg/dL (0-0.2); Bilirubin Total 0.8 mg/dL (0.2-1.0); Glucose Level 298 mg/dL (74-106); Magnesium 1.7 mg/dL (1.8-2.4); NT PRO-BNP 658 pg/mL (<125); Potassium 3.8 mmol/L (3.5-5.1); Sodium Level 135 mmol/L (136-145); Troponin (Emerg Dept Use Only) < 0.02 ng/mL (0.0-0.045)
[2019-03-23] MEDS ORDERED: AZITHROMYCIN 500 MG INJ IVPB ONE (05:43)
[2019-03-23] MEDS ORDERED: NA CHLORIDE 0.9% 250 ML ONE (05:43)
--- NOTE | 2019-03-23 05:53 | EKG ---
Test Date: 2019-03-23 Test Time: 04:19:56 [employer]: [employer] MEASUREMENT RESULTS: Intervals: Rate: 86 NV: 158 QRSD: 88 QT: 348 QTc: 416 [place]: P: 37 NV: 158 QRS: -44 T: 13 INTERPRETIVE STATEMENTS: Normal sinus rhythm Left axis deviation Incomplete right bundle branch block Abnormal ECG Compared to ECG 10/20/2018 21:20:01 Left-axis deviation now present Electronically Signed On 03-23-19 05:53:14 CDT by Theo Ybarra
[2019-03-23] MEDS ORDERED: MAGNESIUM SULFATE 1 gm IVPB 1 GM/100 ML BAG IV ONE (05:58)
[2019-03-23 06:09] LABS: Blood Morphology Comment NOT SEEN (NOT SEEN); Platelet Estimate ADEQ
[2019-03-23 07:09] LABS: Urine Appearance TURBID; Urine Blood 3+ (NEG); Urine Color DK YELLOW; Urine Glucose TRACE (NEG); Urine Protein 2+ (NEG); Urine Specific Gravity >=1.030 (1.005-1.030); Urine pH 5.5 (5.0-7.0)
--- NOTE | 2019-03-23 07:21 | ER ---
Nurse's Notes [facility] Name: Toney Jenkins Age: 69 yrs Sex: Male : 1950 Arrival Date: 03/23/2019 Time: 03:47 Bed 16 Private MD: Diagnosis: Urinary tract infection, site not specified;Fever, unspecified;Influenza due to other identified influenza virus;Acute tubulo-interstitial nephritis Presentation: 03/23 04:01 Presenting complaint: EMS states: "He was diagnosed with Flu A 2 days ago at his [facility] primary care doctor. he reported waking up today feeling bad and having the chills.". Transition of care: patient was not received from another setting of care. Onset of symptoms was March 23, 2019. Risk Assessment: Do you want to hurt yourself or someone else? Patient reports no desire to harm self or others. Initial Sepsis Screen: Does the patient meet any 2 criteria? HR > 90 bpm. No. Patient's initial sepsis screen is negative. Does the patient have a suspected source of infection? No. Patient's initial sepsis screen is negative. Care prior to arrival: IV initiated. 20 GA, in the left forearm, Glucose check: 290. 04:01 Method Of Arrival: EMS: [facility] 04:01 Acuity: DANII 3 jd3 Historical: - Allergies: 04:06 No Known Allergies; jd3 - Home Meds: 04:06 atorvastatin 40 mg Oral tab 1 tab once daily [Active]; buspirone 15 mg Oral tab 2 times jd3 per day [Active]; carvedilol 25 mg Oral tab 1 tab 2 times per day [Active]; clopidogrel 75 mg Oral tab 1 tab once daily [Active]; doxazosin 5 mg Oral 1 tab twice a day [Active]; eplerenone 50 mg Oral tab 1 tab once daily [Active]; hydrochlorothiazide 25 mg Oral tab 1 tab once daily [Active]; losartan 100 mg Oral tab 0.5 tab twice a day [Active]; Novolog Sub-Q as needed [Active]; tresiba 12 unit am and 12 units pm [Active]; - PMHx: 04:06 BPH; Diabetes - IDDM; CVA; Hypertension; jd3 - PSHx: 04:06 Carpal Tunnel Repair; Knee surgery; jd3 - Immunization history:: Adult Immunizations. - Social history:: Smoking status: Patient/guardian denies using tobacco. - Family history:: not pertinent. - Ebola Screening: : Patient negative for fever greater than or equal to 101.5 degrees Fahrenheit, and additional compatible Ebola Virus Disease symptoms. Screenin:08 Abuse screen: Denies threats or abuse. Nutritional screening: No deficits noted. jd3 Tuberculosis screening: No symptoms or risk factors identified. Fall Risk IV access (20 points). Ambulatory Aid- None/Bed Rest/Nurse Assist (0 pts). Gait- Normal/Bed Rest/Wheelchair (0 pts) Mental Status- Oriented to own ability (0 pts). Total Caban Fall Scale indicates No Risk (0-24 pts). Assessment: 04:07 General: Appears in no apparent distress. uncomfortable, Behavior is calm, cooperative, jd3 appropriate for age, Reports chills for 0-12 hours. Pain: Denies pain. Neuro: Level of Consciousness is awake, alert, obeys commands, Oriented to person, place, time, situation, Appropriate for age. Cardiovascular: Heart tones present Capillary refill < 3 seconds Patient's skin is warm and dry. Respiratory: Airway is patent Respiratory effort is even, unlabored, Respiratory pattern is regular, symmetrical, Breath sounds are clear bilaterally. GI: No signs and/or symptoms were reported involving the gastrointestinal system. : No signs and/or symptoms were reported regarding the genitourinary system. EENT: No signs and/or symptoms were reported regarding the EENT system. Derm: Skin is intact, Skin is diaphoretic, Skin is normal, Skin temperature is warm. Musculoskeletal: Circulation, motion, and sensation intact. Range of motion: intact in all extremities. 04:57 Reassessment: Patient appears in no apparent distress at this time. Patient and/or jd3 family updated on plan of care and expected duration. Pain level reassessed. Patient is alert, oriented x 3, equal unlabored respirations, skin warm/dry/pink. 05:49 Reassessment: Patient appears in no apparent distress at this time. Patient and/or jd3 family updated on plan of care and expected duration. Pain level reassessed. Patient is alert, oriented x 3, equal unlabored respirations, skin warm/dry/pink. 06:27 Reassessment: Patient appears in no apparent distress at this time. Patient and/or jd3 family updated on plan of care and expected duration. Pain level reassessed. Patient is alert, oriented x 3, equal unlabored respirations, skin warm/dry/pink. Patient states feeling better. 07:15 Reassessment: Patient appears in no apparent distress at this time. Patient and/or em family updated on plan of care and expected duration. Pain level reassessed. Patient is alert, oriented x 3, equal unlabored respirations, skin warm/dry/pink. 08:37 Reassessment: Attempted to call report, nurse will call back. ss 09:08 Reassessment: Pt ambulated to restroom with steady gait. Attempting to call report ss again at this time, on hold for receiving nurse. Vital Signs: 04:06 BP 114 / 54; Pulse 93; Resp 19 S; Temp 100.7(O); Pulse Ox 95% on R/A; Weight 94.8 kg jd3 (R); Height 5 ft. 9 in. (175.26 cm) (R); Pain 0/10; 04:56 BP 107 / 58; Pulse 81; Resp 19 S; Pulse Ox 95% on R/A; jd3 05:49 BP 109 / 60; Pulse 74; Resp 18 S; Pulse Ox 96% on R/A; jd3 06:28 BP 105 / 57; Pulse 76; Resp 18 S; Pulse Ox 95% on R/A; jd3 07:15 BP 120 / 65; Pulse 78; Resp 18; Temp 99.1; Pulse Ox 98% on R/A; Pain 0/10; em 08:32 BP 109 / 60; Pulse 73; Resp 15; Temp 98.2(O); Pulse Ox 97% on R/A; Pain 0/10; ss 04:06 Body Mass Index 30.86 (94.80 kg, 175.26 cm) jd3 ED Course: 03:47 Patient arrived in ED. ds1 03:48 Hung Bocanegra MD is Attending Physician. nikki 04:00 Shane Diaz RN is Primary Nurse. jd3 04:04 Triage completed. jd3 04:07 Arm band placed on. jd3 04:09 Patient has correct armband on for positive identification. Placed in gown. Bed in low jd3 position. Call light in reach. Side rails up X 1. Adult w/ patient. 04:45 Maintain EMS IV. Dressing intact. Good blood return noted. Site clean \\T\\ dry. Gauge \\T\\ tyler 3 site: 20 G left forearm.. 04:56 X-ray completed. Portable x-ray completed in exam room. Patient tolerated procedure kw well. 04:57 XRAY Chest (1 view) In Process Unspecified. EDMS 07:20 Sharif Sheehan DO is Referral Physician. nikki 07:32 Dominique Nicole MD is Hospitalizing Provider. nikki 07:45 CT Stone Protocol In Process Unspecified. EDMS 08:38 No provider procedures requiring assistance completed. ss 08:42 Patient admitted, IV remains in place. ss Administered Medications: 04:26 Drug: NS 0.9% 1000 ml Route: IV; Rate: 1 bolus; Site: left forearm; jd3 05:25 Follow up: Response: No adverse reaction; IV Status: Completed infusion; IV Intake: jd3 1000ml 04:44 Drug: Tylenol 650 mg Route: PO; jd3 05:40 Follow up: Response: No adverse reaction jd3 04:54 Drug: Rocephin - (cefTRIAXone) 1 grams Route: IVPB; Infused Over: 30 mins; Site: left jd3 forearm; 05:50 Follow up: Response: No adverse reaction; IV Status: Completed infusion jd3 05:36 Drug: Zithromax 500 mg Route: IVPB; Infused Over: 1 hrs; Site: left forearm; jd3 06:30 Follow up: Response: No adverse reaction; IV Status: Completed infusion; IV Intake: jd3 250ml 05:48 Drug: Magnesium Sulfate 1 grams Route: IVPB; Infused Over: 1 hrs; Site: left forearm; jd3 06:45 Follow up: Response: No adverse reaction; IV Status: Completed infusion; IV Intake: [id number] 07:29 CANCELLED (Duplicate Order): LevOfloxacin 500 mg PO once nikki 08:07 Drug: levofloxacin 500 mg Volume: 100 ml; Route: IVPB; Infused Over: 60 mins; Site: em left wrist; 08:36 Follow up: IV Status: Infusion continued upon admission Point of Care Testing: Blood Glucose: 08:32 Blood Glucose: 264 mg/dL; Ranges: Intake: 05:25 IV: 1000ml; Total: 1000ml. jd3 06:30 IV: 250ml; Total: 1250ml. jd3 06:45 IV: 50ml; Total: 1300ml. jd3 Outcome: 07:20 Discharge ordered by . nikki 07:36 Decision to Hospitalize by Provider. nikki 08:43 Condition: good ss 08:43 Instructed on the need for admit. 09:24 Admitted to Med/surg accompanied by tech, family with patient, via wheelchair, room ss 213, with chart, Report called to RADHA Lopez 09:25 Patient left the ED. ss Signatures: Dispatcher [employer] Hung Live MD MD cha Munoz, Edgar, SUPERVISOR CLAM BED SUPERVISOR CLAM BED Sirisha Hunter ds1 Leida Winslow RN RN Migdalia Ahuja Jonathon, RN RN jd3 Corrections: (The following items were deleted from the chart) 06:28 06:27 Reassessment: Patient appears in no apparent distress at this time. Patient jd3 and/or family updated on plan of care and expected duration. Pain level reassessed. Patient is alert, oriented x 3, equal unlabored respirations, skin warm/dry/pink. jd3 08:42 08:38 IV discontinued, intact, bleeding controlled, No redness/swelling at site. ss Pressure dressing applied, ss 08:42 08:38 Discharged to home ambulatory, ss 08:42 08:38 Condition: improved ss 08:42 08:38 Discharge instructions given to patient, family, Instructed on discharge ss instructions, follow up and referral plans. medication usage, Demonstrated understanding of instructions, follow-up care, medications, Prescriptions given X 2, ss
--- NOTE | 2019-03-23 07:21 | EDPHYS ---
Physician Documentation [facility] Name: Toney Jenkins Age: 69 yrs Sex: Male : 1950 Arrival Date: 03/23/2019 Time: 03:47 Bed 16 Private MD: ED Physician Hung Bocanegra HPI: 03/23 04:03 This 69 yrs old Male presents to ER via Unassigned with complaints of FEVER, nikki COUGH AND MALIASE. 04:03 fever, recent flu diagnosis. Onset: The symptoms/episode began/occurred just prior to the [facility] arrival, this morning. Severity of symptoms: At their worst the symptoms were moderate in the emergency department the symptoms are unchanged. The patient has not experienced similar symptoms in the past. Historical: - Allergies: 04:06 No Known Allergies; jd3 - Home Meds: 04:06 atorvastatin 40 mg Oral tab 1 tab once daily [Active]; buspirone 15 mg Oral tab 2 times jd3 per day [Active]; carvedilol 25 mg Oral tab 1 tab 2 times per day [Active]; clopidogrel 75 mg Oral tab 1 tab once daily [Active]; doxazosin 5 mg Oral 1 tab twice a day [Active]; eplerenone 50 mg Oral tab 1 tab once daily [Active]; hydrochlorothiazide 25 mg Oral tab 1 tab once daily [Active]; losartan 100 mg Oral tab 0.5 tab twice a day [Active]; Novolog Sub-Q as needed [Active]; tresiba 12 unit am and 12 units pm [Active]; - PMHx: 04:06 BPH; Diabetes - IDDM; CVA; Hypertension; jd3 - PSHx: 04:06 Carpal Tunnel Repair; Knee surgery; jd3 - Immunization history:: Adult Immunizations. - Social history:: Smoking status: Patient/guardian denies using tobacco. - Family history:: not pertinent. - Ebola Screening: : Patient negative for fever greater than or equal to 101.5 degrees Fahrenheit, and additional compatible Ebola Virus Disease symptoms. ROS: 04:03 Constitutional: Negative for fever, chills, and weight loss, Eyes: Negative for injury, nikki pain, redness, and discharge, Neck: Negative for injury, pain, and swelling, Cardiovascular: Negative for chest pain, palpitations, and edema, Abdomen/GI: Negative for abdominal pain, nausea, vomiting, diarrhea, and constipation, Back: Negative for injury and pain, : Negative for injury, bleeding, discharge, and swelling, MS/Extremity: Negative for injury and deformity, Skin: Negative for injury, rash, and discoloration, Neuro: Negative for headache, weakness, numbness, tingling, and seizure, Psych: Negative for depression, anxiety, suicide ideation, homicidal ideation, and hallucinations, Allergy/Immunology: Negative for hives, rash, and allergies, Endocrine: Negative for neck swelling, polydipsia, polyuria, polyphagia, and marked weight changes, Hematologic/Lymphatic: Negative for swollen nodes, abnormal bleeding, and unusual bruising. 04:03 ENT: Positive for rhinorrhea, sinus congestion, sore throat. 04:03 Respiratory: Positive for cough, wheezing, inspiratory, expiratory. Exam: 04:03 Constitutional: This is a well developed, well nourished patient who is awake, alert, nikki and in no acute distress. Head/Face: Normocephalic, atraumatic. Eyes: Pupils equal round and reactive to light, extra-ocular motions intact. Lids and lashes normal. Conjunctiva and sclera are non-icteric and not injected. Cornea within normal limits. Periorbital areas with no swelling, redness, or edema. ENT: Nares patent. No nasal discharge, no septal abnormalities noted. Tympanic membranes are normal and external auditory canals are clear. Oropharynx with no redness, swelling, or masses, exudates, or evidence of obstruction, uvula midline. Mucous membranes moist. Neck: Trachea midline, no thyromegaly or masses palpated, and no cervical lymphadenopathy. Supple, full range of motion without nuchal rigidity, or vertebral point tenderness. No Meningismus. Chest/axilla: Normal chest wall appearance and motion. Nontender with no deformity. No lesions are appreciated. Cardiovascular: Regular rate and rhythm with a normal S1 and S2. No gallops, murmurs, or rubs. Normal PMI, no JVD. No pulse deficits. Abdomen/GI: Soft, non-tender, with normal bowel sounds. No distension or tympany. No guarding or rebound. No evidence of tenderness throughout. Back: No spinal tenderness. No costovertebral tenderness. Full range of motion. Male : Normal genitalia with no discharge or lesions. Skin: Warm, dry with normal turgor. Normal color with no rashes, no lesions, and no evidence of cellulitis. MS/ Extremity: Pulses equal, no cyanosis. Neurovascular intact. Full, normal range of motion. Neuro: Awake and alert, GCS 15, oriented to person, place, time, and situation. Cranial nerves II-XII grossly intact. Motor strength 5/5 in all extremities. Sensory grossly intact. Cerebellar exam normal. Normal gait. Psych: Awake, alert, with orientation to person, place and time. Behavior, mood, and affect are within normal limits. 04:03 Respiratory: the patient does not display signs of respiratory distress, Respirations: normal, Breath sounds: rhonchi, that are mild, are scattered. Vital Signs: 04:06 BP 114 / 54; Pulse 93; Resp 19 S; Temp 100.7(O); Pulse Ox 95% on R/A; Weight 94.8 kg jd3 (R); Height 5 ft. 9 in. (175.26 cm) (R); Pain 0/10; 04:56 BP 107 / 58; Pulse 81; Resp 19 S; Pulse Ox 95% on R/A; jd3 05:49 BP 109 / 60; Pulse 74; Resp 18 S; Pulse Ox 96% on R/A; jd3 06:28 BP 105 / 57; Pulse 76; Resp 18 S; Pulse Ox 95% on R/A; jd3 07:15 BP 120 / 65; Pulse 78; Resp 18; Temp 99.1; Pulse Ox 98% on R/A; Pain 0/10; em 08:32 BP 109 / 60; Pulse 73; Resp 15; Temp 98.2(O); Pulse Ox 97% on R/A; Pain 0/10; ss 04:06 Body Mass Index 30.86 (94.80 kg, 175.26 cm) jd3 MDM: 03:48 Patient medically screened. [facility] 04:07 Data reviewed: vital signs, nurses notes, lab test result(s), EKG, radiologic studies, nikki plain films. 03/23 04:01 Order name: Basic Metabolic Panel; Complete Time: 05:41 [facility] 03/23 04:01 Order name: CBC with Diff; Complete Time: 06:42 [facility] 03/23 04:01 Order name: LFT's; Complete Time: 05:41 [facility] 03/23 04:01 Order name: Magnesium; Complete Time: 05:41 [facility] 03/23 04:01 Order name: NT PRO-BNP; Complete Time: 05:41 [facility] 03/23 04:01 Order name: PT-INR; Complete Time: 05:13 [facility] 03/23 04:01 Order name: Troponin (emerg Dept Use Only); Complete Time: 05:41 [facility] 03/23 04:01 Order name: Urine Culture [facility] 03/23 04:01 Order name: Blood Culture Adult (2) [facility] 03/23 04:01 Order name: Depakote; Complete Time: 05:14 [facility] 03/23 04:01 Order name: Procalcitonin; Complete Time: 05:41 [facility] 03/23 04:01 Order name: Lactate; Complete Time: 05:14 [facility] 03/23 05:07 Order name: Manual Differential; Complete Time: 06:42 [facility] 03/23 06:44 Order name: Urinalysis; Complete Time: 07:27 [facility] 03/23 04:01 Order name: XRAY Chest (1 view); Complete Time: 08:24 [facility] 03/23 04:01 Order name: EKG; Complete Time: 04:02 [facility] 03/23 04:01 Order name: Cardiac monitoring; Complete Time: 04:26 [facility] 03/23 04:01 Order name: EKG - Nurse/Tech; Complete Time: 04:26 [facility] 03/23 04:01 Order name: IV Saline Lock; Complete Time: 04:10 [facility] 03/23 07:18 Order name: EKG Electrocardiogram [facility] 03/23 07:22 Order name: Urine Microscopic Only; Complete Time: 07:27 [facility] 03/23 07:27 Order name: CT Stone Protocol; Complete Time: 08:24 [facility] 03/23 08:33 Order name: Glucose, Ancillary Testing [facility] 03/23 04:01 Order name: Labs collected and sent; Complete Time: 04:44 [facility] 03/23 04:01 Order name: O2 Per Protocol; Complete Time: 04:10 [facility] 03/23 04:01 Order name: O2 Sat Monitoring; Complete Time: 04:10 [facility] 03/23 04:01 Order name: Urine Dipstick-Ancillary (obtain specimen); Complete Time: 05:26 [facility] 03/23 07:00 Order name: PO challenge; Complete Time: 08:12 [facility] Administered Medications: 04:26 Drug: NS 0.9% 1000 ml Route: IV; Rate: 1 bolus; Site: left forearm; jd3 05:25 Follow up: Response: No adverse reaction; IV Status: Completed infusion; IV Intake: jd3 1000ml 04:44 Drug: Tylenol 650 mg Route: PO; jd3 05:40 Follow up: Response: No adverse reaction jd3 04:54 Drug: Rocephin - (cefTRIAXone) 1 grams Route: IVPB; Infused Over: 30 mins; Site: left jd3 forearm; 05:50 Follow up: Response: No adverse reaction; IV Status: Completed infusion jd3 05:36 Drug: Zithromax 500 mg Route: IVPB; Infused Over: 1 hrs; Site: left forearm; jd3 06:30 Follow up: Response: No adverse reaction; IV Status: Completed infusion; IV Intake: jd3 250ml 05:48 Drug: Magnesium Sulfate 1 grams Route: IVPB; Infused Over: 1 hrs; Site: left forearm; jd3 06:45 Follow up: Response: No adverse reaction; IV Status: Completed infusion; IV Intake: [id number] 07:29 CANCELLED (Duplicate Order): LevOfloxacin 500 mg PO once nikki 08:07 Drug: levofloxacin 500 mg Volume: 100 ml; Route: IVPB; Infused Over: 60 mins; Site: em left wrist; 08:36 Follow up: IV Status: Infusion continued upon admission Point of Care Testing: Blood Glucose: 08:32 Blood Glucose: 264 mg/dL; Ranges: Critical Glucose Levels:Adult <50 mg/dl or >400 mg/dl <40 mg/dl or >180 mg/dl Disposition: 03/23/19 07:36 Hospitalization ordered by Dominique Nicole for Inpatient Admission. Preliminary diagnosis are Urinary tract infection, site not specified, Fever, unspecified, Influenza due to other identified influenza virus, Acute tubulo-interstitial nephritis. - Bed requested for Telemetry/MedSurg (Inpatient). - Status is Inpatient Admission. ss - Condition is Fair. - Problem is new. - Symptoms have improved. UTI on Admission? Yes Signatures: Dispatcher [employer] Hung Live MD MD cha Munoz, Edgar, BEREAVEMENT COORDINATOR BEREAVEMENT COORDINATOR em Leida iWnslow RN RN ss Rosa Delaney RN RN df Davies, Jonathon, RN RN jd3 Corrections: (The following items were deleted from the chart) 07:29 07:27 LevOfloxacin 500 mg PO once ordered. [facility] 07:30 07:20 03/23/2019 07:20 Discharged to Home. Impression: Type 1 diabetes mellitus; nikki Essential (primary) hypertension; Fever, unspecified; Influenza due to other identified influenza virus. Condition is Stable. Discharge Instructions: Fever, Adult, Hypertension, Influenza, Pediatric, Hypertension, [id number], Influenza, Pediatric, [id number], Managing Your Hypertension. Prescriptions for Tamiflu 75 mg Oral Capsule - take 1 tablet by ORAL route every 12 hours for 5 days; 10 tablet, Zithromax 500 mg Oral Tablet - take 1 tablet by ORAL route once daily for 4 days; 4 tablet. and Forms are Medication Reconciliation Form, Thank You Letter, Antibiotic Education, Prescription Opioid Use. Follow up: Private Physician; When: 2 - 3 days; Reason: Recheck today's complaints, Continuance of care, Re-evaluation by your physician. Follow up: Sharif Sheehan; When: 2 - 3 days; Reason: Recheck today's complaints, Re-evaluation by your physician. Problem is new. Symptoms have improved. [facility] 08:26 07:36 Hospitalization Ordered by Dominique Nicole MD for Inpatient Admission. Preliminary df diagnosis is Urinary tract infection, site not specified; Fever, unspecified; Influenza due to other identified influenza virus; Acute tubulo-interstitial nephritis. Bed requested for Telemetry/MedSurg (Inpatient). Status is Inpatient Admission. Condition is Fair. Problem is new. Symptoms have improved. UTI on Admission? Yes. [facility] 09:25 08:26 03/23/2019 07:36 Hospitalization Ordered by Dominique Nicole MD for Inpatient ss Admission. Preliminary diagnosis is Urinary tract infection, site not specified; Fever, unspecified; Influenza due to other identified influenza virus; Acute tubulo-interstitial nephritis. Bed requested for Telemetry/MedSurg (Inpatient). Status is Inpatient Admission. Condition is Fair. Problem is new. Symptoms have improved. UTI on Admission? Yes. df
[2019-03-23 07:22] LABS: Urine Bacteria >50 /HPF (NONE SEEN); Urine Bilirubin NEGATIVE (NEG); Urine Microscopic Reflex ORDER UMIC; Urine Mucus 1+ /HPF (NONE SEEN); Urine RBC 20-50 /HPF (NONE SEEN)
[2019-03-23 07:25] LABS: Urine Culture Reflex Order NOT NEEDED
--- NOTE | 2019-03-23 07:50 | RAD REPORT ---
EXAM DESCRIPTION: Leo Single View03/23/2019 4:57 am CLINICAL HISTORY: Cough COMPARISON: September 2018 FINDINGS: The lungs appear clear of acute infiltrate. The heart is mildly enlarged IMPRESSION: No acute abnormalities displayed
[2019-03-23] MEDS ORDERED: Levofloxacin500mg IV 500 MG/100 ML BAG IV ONE (07:55)
--- NOTE | 2019-03-23 08:13 | RAD REPORT ---
EXAM DESCRIPTION: CT - Stone Protocol - 03/23/2019 7:44 am CLINICAL HISTORY: Abdominal pain. Lower abdominal pain. Urinary frequency COMPARISON: None. TECHNIQUE: Computed axial tomography of the abdomen pelvis was obtained without oral or IV contrast. Lack of IV and oral contrast limits evaluation of solid organs, bowel, and vessels. Coronal reformat miles images were obtained and reviewed. All CT scans are performed using dose optimization technique as appropriate and may include automated exposure control or mA/KV adjustment according to patient size. FINDINGS: A renal calculus is not seen. An ureteral calculus is not noted. A bladder calculus is not present. Bladder wall appears mildly thickened. The prostate gland is mildly enlarged. Stranding is present within the fat adjacent to the bladder. The liver, spleen, pancreas and adrenals appear grossly normal There is no evidence of diverticulitis. The appendix appears normal Minimal pleural effusions IMPRESSION: Negative for a genitourinary calculus Mild bladder wall thickening with stranding within the adjacent fat may be secondary to infection/inf lammation. .
--- NOTE | 2019-03-23 09:31 | EKG ---
Test Date: 2019-03-23 Test Time: 04:20:32 Com Writer: YISSEL MEASUREMENT RESULTS: Intervals: Rate: 88 CO: 152 QRSD: 94 QT: 340 QTc: 411 [place]: P: 54 CO: 152 QRS: -43 T: 49 INTERPRETIVE STATEMENTS: Normal sinus rhythm Left axis deviation Incomplete right bundle branch block Nonspecific T wave abnormality Abnormal ECG Compared to ECG 03/23/2019 04:19:56 T-wave abnormality now present Electronically Signed On 03-23-19 09:30:54 CDT by Theo Ybarra
[2019-03-23] MEDS ORDERED: ACETAMINOPHEN 325 MG TABLET PO PRN (10:05)
[2019-03-23] MEDS ORDERED: ONDANSETRON 4 MG/2 ML VIAL IV PRN (10:05)
[2019-03-23] MEDS ORDERED: hydrOXYzine HCl 25 MG TAB PO PRN (12:11)
[2019-03-23] MEDS ORDERED: D50W 25 GM/50 ML SYRINGE IV PRN ×2 (12:25→17:08)
[2019-03-23] MEDS ORDERED: GLUCAGON 1 MG/VIAL IM PRN ×2 (12:25→17:08)
[2019-03-23] MEDS: BUSPIRONE HCL 15 MG TABLET PO SCH ×2 (12:56→20:58)
[2019-03-23] MEDS: NA CHLORIDE 0.9% 1,000 ML IV SCH ×2 (12:56→20:05)
[2019-03-23] MEDS: INSULIN -REGULAR HUMAN 50 UNIT/0.5 ML ML SQ SCH ×4 (12:56→21:01)
[2019-03-23] MEDS: OSELTAMIVIR 75 MG CAP PO SCH ×2 (12:56→21:06)
[2019-03-23] MEDS: CARVEDILOL 25 MG TAB PO SCH ×2 (12:57→21:00)
[2019-03-23] MEDS: hydroCHLOROthiazide 25 MG TAB PO SCH (12:57)
[2019-03-23] MEDS: DOXAZOSIN 2 MG TAB PO SCH ×2 (12:57→20:57)
[2019-03-23] MEDS ORDERED: LORazepam 2 MG/ML VIAL IV PRN (14:25)
[2019-03-23] MEDS: FOLIC ACID 1 MG, MULTIVITAMINS INJ 10 ML, THIAMINE HCL 100 MG in NA CHLORIDE 0.9% 1,000 ML IV SCH (17:24)
[2019-03-23] MEDS: DIVALPROEX NA 125 MG CAP PO SCH (20:58)
[2019-03-23] MEDS: INSULIN GLARGINE 100 UNITS/ML SQ SCH (21:00)
[2019-03-23] MEDS ORDERED: ATORVASTATIN 40 MG TAB PO SCH (21:00)
[2019-03-23] MEDS ORDERED: INSULIN DEGLUDEC 12 UNIT SQ SCH (21:00)
--- NOTE | 2019-03-24 04:11 | HP ---
Date of Admission: 03/23/2019 Code Status: Full. Chief Complaint: Fever, UTI, flu. History Of Present Illness: The patient is a 69-year-old male with past medical history of hyperlipi demia, benign prostatic hyperplasia, hypertension, diabetes, history of stroke, who was in his usual state of health until the day of admission when the patient started having fever, chills, cough, and generalized malaise. The patient's symptoms are constant, moderate, progressively worsening. The atul alexandra was diagnosed with flu on Tuesday by his PCP and started on Tamiflu. The patient otherwise d enies any chest pain, abdominal pain, nausea, or vomiting. The patient's workup in the ER showed nor mal white blood cell count. He did have elevated procalcitonin level at 1.74. Lactate was normal. He had some mild electrolyte abnormalities. Imaging studies including CT scan of the abdomen did not show any renal calculus, mild bladder wall thickening with stranding within the adjacent fat may be secondary to infection/inflammation. The patient did have a positive UA, found to have UTI. The mehdi flaherty was started on IV antibiotics. The patient was then referred for admission. When seen in the E R, he was awake, alert, oriented x3, in some mild distress. Past Medical History: History of CVA; hypertension; hyperlipidemia; benign prostatic hyperplasia; di abetes mellitus type 2, insulin requiring. Past Surgical History: Carpal tunnel surgery, knee surgery. Allergies: NO KNOWN DRUG ALLERGIES. Medications: List reviewed. Social History: The patient denies any tobacco use. The patient does drink beer daily. No illicit drug use. The patient is . Does need some assistance with his activities of daily living. Family History: The patient is adopted; however, does know that his biological mother of heart disease. Review of Systems: 10-point system reviewed, negative except as per HPI. Physical Examination: Vital Signs: Blood pressure 114/54, pulse 93, respirations 19, temperature 100.7, O2 95% on room air , BMI 30. General: Awake, alert, oriented x3, in some mild distress. Elderly male, obese. HEENT: Normocephalic, atraumatic. PERRLA. EOMI. Moist mucous membranes. Oropharynx is clear. Po or dentition. Conjunctivae anicteric. Neck: Supple. No JVD. Trachea midline. CV: S1, S2. Regular rate and rhythm. Peripheral pulses present. Respiratory: Moving air well bilaterally. No wheezing or stridor. No use of accessory muscles. Gastrointestinal: Abdomen is soft, nontender, nondistended. Positive bowel sounds. No guarding or rigidity. Extremities: No clubbing, cyanosis, or edema. No calf tenderness. Neuro: Cranial nerves 2 through 12 intact grossly. Left-sided weakness. Speech is normal. No faci al asymmetry. Skin: No rashes. Normal skin turgor. Laboratory Data: WBC 6.8, H and H 11.5 and 33.2, platelets 129, neutrophils 88.9%, 1% bands. INR 1. 13. Sodium 135, potassium 3.8, chloride 101, CO2 26, BUN 22, creatinine 1.28, glucose 298. Lactate 1.5. Procalcitonin 1.74, calcium 8.1, magnesium 1.7. Troponin less than 0.02. BNP 658. Albumin 2. 8. UA; 3+ blood, positive nitrite, 3+ leukocyte esterase, 20 to 50 rbc's, greater than 50 wbc's, gre ater than 50 bacteria. Valproic acid level is low at 36. CT scan of the abdomen negative for genito urinary calculus, mild bladder wall thickening with stranding within the adjacent fat may be secondar y to infection/inflammation. Prostate gland is mildly enlarged. Chest x-ray personally reviewed stacey karena no acute intrathoracic process identified. Assessment And Plan: A 69-year-old male with: 1.Influenza. We will continue Tamiflu. 2.Hypomagnesemia. We will replace and monitor. 3.Acute cystitis with hematuria. We will start on Rocephin and monitor urine culture. 4.Possible prostatitis acute. The patient may need 2 to 4 weeks of antibiotics p.o. once transition ed from the hospital. 5.Obesity, BMI 30. 6.Essential hypertension, stable. We will resume home medications. 7.Mixed hyperlipidemia. Continue statin. 8.Benign prostatic hyperplasia. The patient on Cardura. 9.Diabetes mellitus type 2, insulin requiring with hyperglycemia, now well controlled. We will cont inue with long-acting insulin and initiate sliding scale insulin. Monitor Accu-Cheks. 10.Deep vein thrombosis prophylaxis with SCDs. No chemical anticoagulation due to microscopic hemat uria. Plan: Admit the patient to Med/Surg, place as observation. ZOE Voice ID: [id number]
[2019-03-24] MEDS ORDERED: CEFTRIAXONE/SWI 1gm 1 GM/10 ML SYR IV SCH (05:00)
[2019-03-24 05:21] LABS: Absolute Lymphocytes (CBC) 0.8 K/uL (0.7-4.9); Absolute Monocytes 0.7 K/uL (0.1-1.3); Absolute Neutrophil 3.7 K/uL (1.8-8.0); Basophils % 0.2 % (0-1.3); Eosinophils % 1.2 % (0-4.4); Hematocrit 29.5 % (39.6-49.0); Lymphocytes % 14.9 % (15.3-44.8); MPV 8.5 fL (7.6-11.3); Monocytes % 13.5 % (3.3-12.3); RBC Red Blood Cell Count 3.45 M/uL (4.33-5.43)
[2019-03-24 05:34] LABS: Albumin 2.5 g/dL (3.4-5.0); Bilirubin Total 0.4 mg/dL (0.2-1.0); Magnesium 2.1 mg/dL (1.8-2.4); Potassium 3.5 mmol/L (3.5-5.1); Protein, Total 5.3 g/dL (6.4-8.2)
[2019-03-24] MEDS ORDERED: POTASSIUM CL SA 10 MEQ TAB PO ONE ×2 (06:04→08:24)
[2019-03-24] MEDS: NA CHLORIDE 0.9% 1,000 ML IV SCH (06:05)
[2019-03-24] MEDS ORDERED: EPLERENONE 50 MG PO SCH (09:00)
[2019-03-24] MEDS ORDERED: CLOPIDOGREL 75 MG TABLET PO SCH (09:00)
[2019-03-24] MEDS: INSULIN -REGULAR HUMAN 50 UNIT/0.5 ML ML SQ SCH ×2 (09:22→12:09)
[2019-03-24] MEDS: INSULIN GLARGINE 100 UNITS/ML SQ SCH (09:22)
[2019-03-24] MEDS: DOXAZOSIN 2 MG TAB PO SCH (09:23)
[2019-03-24] MEDS: hydroCHLOROthiazide 25 MG TAB PO SCH (09:23)
[2019-03-24] MEDS: DIVALPROEX NA 125 MG CAP PO SCH (09:23)
[2019-03-24] MEDS: CARVEDILOL 25 MG TAB PO SCH (09:24)
[2019-03-24] MEDS: OSELTAMIVIR 75 MG CAP PO SCH (09:24)
[2019-03-24] MEDS: FOLIC ACID 1 MG, MULTIVITAMINS INJ 10 ML, THIAMINE HCL 100 MG in NA CHLORIDE 0.9% 1,000 ML IV SCH (09:25)
[2019-03-24] MEDS: BUSPIRONE HCL 15 MG TABLET PO SCH (11:30)
--- NOTE | 2019-03-24 18:12 | DS ---
Date of Discharge: 03/24/2019 Discharge Diagnoses: 1.Influenza. 2.Acute cystitis with hematuria secondary to gram-negative rods. 3.Hypomagnesemia. 4.Acute prostatitis. 5.Obesity, BMI 30. 6.Essential hypertension. 7.Mixed hyperlipidemia. 8.Benign prostatic hypertrophy. 9.Diabetes mellitus type 2 insulin-requiring with hyperflexed hyperglycemia. Hospital Course: The patient is a 69-year-old male with past medical history of BPH, hypertension, d iabetes, history of stroke, hyperlipidemia, comes in with fever, chills, generalized malaise. The atul alexandra was diagnosed with influenza as an outpatient. At that time, in the hospital he was found to h ave elevated procalcitonin level and had UTI. The patient's CT scan did not show any stones, did stacey w some mild involvement from bladder wall thickening with stranding within the adjacent fat, may be s econdary to infection inflammation. Also had enlarged prostate gland, likely due to prostatitis. Th e patient was started on IV antibiotics, was place on droplet precautions. Tamiflu was continued. T he patient's urine culture grew out gram-negative rods. Final culture results are still pending. Th e patient did well over the course of the hospital stay. He did have episode of what seems to be alc ohol withdrawal. He drinks beer daily. The patient became diaphoretic. He was given Ativan x2, whi ch improved his symptoms. The patient was started on banana bag. The patient is doing well. He was no longer febrile. He did not have any night sweats, diaphoresis. His blood glucose levels were not well controlled. His insulin dose was adjusted. The patient was able to ambulate without difficulty. His symptoms had improved. He was then cleared for discharge and was sent home in a stable condition. Activity: Fall precautions. Diet: Diabetic diet. Followup: Follow up with primary care physician in 2-3 days. Return to ER for worsening condition. Medications: As per medication reconciliation list. The patient will need longer duration course fo r prostatitis. He will be on Cipro for 10 days. Physical Examination: General: Awake, alert, oriented x3, not in any acute distress, elderly male. CV: S1, S2. Respiratory: Moving air well bilaterally, no wheezing. Gastrointestinal: Abdomen is soft, nontender , nondistended. Positive bowel sounds. Extremities: No clubbing, cyanosis, or edema. Neurologic: Left-sided weakness. SA/MODL Voice ID: [id number] Report ID: [id number]
== END 2019-03-24 16:35 | disposition home or self-care (01) ==
LOC: ER 03:46 → ERHOLD 08:09 → 2ND 09:22
PROVIDERS: ADMIT Family Medicine; ATTEND Family Medicine
DX: J11.1 Influenza due to unidentified influenza virus with other respiratory manifestations (principal); N30.01 Acute cystitis with hematuria; E83.42 Hypomagnesemia; N41.0 Acute prostatitis; E66.9 Obesity, unspecified; Z68.29 Body mass index [BMI] 29.0-29.9, adult; I10 Essential (primary) hypertension; E78.2 Mixed hyperlipidemia; N40.0 Benign prostatic hyperplasia without lower urinary tract symptoms; E11.65 Type 2 diabetes mellitus with hyperglycemia; Z86.73 Personal history of transient ischemic attack (TIA), and cerebral infarction without residual deficits
CPT/HCPCS: 96365; 96367; 96361; 96368; 93005 ×2; 87040 ×2; 87088; 85025 ×2; 87086; 80048; 36415 ×2; 83735 ×2; 82947; 85610; 82962 ×9; 80076; 80164; 83605; 87077; 87186; 84484; 80053; 84145; 83880; 76377; 74176; 71045; 94760; 99285; J3411; J0456; J3475; J0696 ×2; J7030 ×3; J2405; G0378 ×2; 81003; 81015

== ENCOUNTER 2019-10-06 03:40 | Observation (INO) | payer OTHER ==
[2019-10-06] MEDS ORDERED: NA CHLORIDE 0.9% 500 ML ONE (04:06)
[2019-10-06] MEDS ORDERED: ONDANSETRON 4 MG/2 ML VIAL ONE ×2 (04:06→06:51)
[2019-10-06] MEDS ORDERED: KETOROLAC 30 MG/ML INJ ONE (04:11)
[2019-10-06 04:33] LABS: Absolute Lymphocytes (CBC) 0.6 K/uL (0.7-4.9); Basophils % 0.3 % (0-1.3); Hematocrit 33.3 % (39.6-49.0); Lymphocytes % 7.7 % (15.3-44.8); MPV 8.4 fL (7.6-11.3); RBC Red Blood Cell Count 3.87 M/uL (4.33-5.43)
[2019-10-06 04:52] LABS: Albumin 3.4 g/dL (3.4-5.0); Bilirubin Direct 0.2 mg/dL (0-0.2); Bilirubin Total 0.4 mg/dL (0.2-1.0); Potassium 3.8 mmol/L (3.5-5.1); Protein, Total 6.3 g/dL (6.4-8.2)
[2019-10-06 06:31] LABS: Platelet Estimate ADEQ
[2019-10-06 06:32] LABS: Blood Morphology Comment NOT SEEN (NOT SEEN)
[2019-10-06] MEDS ORDERED: MORPHINE 4 MG/ML SYR ONE (06:51)
--- NOTE | 2019-10-06 07:08 | ER ---
Nurse's Notes [facility] Name: Toney Jenkins Age: 69 yrs Sex: Male : 1950 Arrival Date: 10/06/2019 Time: 03:42 Bed 17 Private MD: Sharif Sheehan Diagnosis: Acute appendicitis with localized peritonitis Presentation: 10/06 03:57 Presenting complaint: Patient states: lower abd pain that radiates to testicle since aa1 last night. Also reports episode of V/D as well. Transition of care: patient was not received from another setting of care. Onset of symptoms was October 05, 2019. Risk Assessment: Do you want to hurt yourself or someone else? Patient reports no desire to harm self or others. Initial Sepsis Screen: Does the patient meet any 2 criteria? No. Patient's initial sepsis screen is negative. Does the patient have a suspected source of infection? Yes: Acute abdominal pain. Care prior to arrival: None. 03:57 Method Of Arrival: Ambulatory aa1 03:57 Acuity: DANII 3 aa1 Triage Assessment: 04:03 General: Appears in no apparent distress. uncomfortable, Behavior is appropriate for aa1 age, restless. Historical: - Allergies: 04:03 No Known Allergies; aa1 - Home Meds: 04:03 atorvastatin 40 mg Oral tab 1 tab once daily [Active]; buspirone 10 mg oral tab 1 tab 2 aa1 times per day [Active]; carvedilol 25 mg Oral tab 1 tab 2 times per day [Active]; clopidogrel 75 mg Oral tab 1 tab once daily [Active]; doxazosin 5 mg Oral 1 tab twice a day [Active]; eplerenone 50 mg Oral tab 1 tab once daily [Active]; hydrochlorothiazide 25 mg Oral tab 1 tab once daily [Active]; losartan 100 mg Oral tab 0.5 tab twice a day [Active]; Novolog Sub-Q as needed [Active]; tresiba 12 unit am and 12 units pm [Active]; valproic acid 250 mg Oral cap 1 cap daily [Active]; hydroxyzine HCl 25 mg Oral tab 1 tab daily [Active]; - PMHx: 04:03 BPH; CVA; Diabetes - IDDM; Hypertension; Anemia; Anxiety; aa1 - PSHx: 04:03 Carpal Tunnel Repair; Knee surgery; aa1 - Immunization history:: Flu vaccine is not up to date. - Social history:: Smoking status: Patient/guardian denies using tobacco. - Ebola Screening: : No symptoms or risks identified at this time. Screenin:53 Abuse screen: Denies threats or abuse. Nutritional screening: No deficits noted. jd3 Tuberculosis screening: No symptoms or risk factors identified. Fall Risk Ambulatory Aid- None/Bed Rest/Nurse Assist (0 pts). Gait- Normal/Bed Rest/Wheelchair (0 pts) Mental Status- Oriented to own ability (0 pts). Total Caban Fall Scale indicates No Risk (0-24 pts). Assessment: 04:38 General: Appears in no apparent distress. uncomfortable, Behavior is calm, cooperative, jd3 appropriate for age. Pain: Complains of pain in abdomen Pain radiates to testicles Quality of pain is described as sharp. Neuro: Level of Consciousness is awake, alert, obeys commands, Oriented to person, place, time, situation. Cardiovascular: Denies chest pain, Capillary refill < 3 seconds Patient's skin is warm and dry. Respiratory: Airway is patent Respiratory effort is even, unlabored, Respiratory pattern is regular, symmetrical, Denies cough, shortness of breath. GI: Abdomen is round Bowel sounds present X 4 quads. Abd is soft X 4 quads Abdomen is tender to palpation in right lower quadrant Reports diarrhea, vomiting. : No signs and/or symptoms were reported regarding the genitourinary system. EENT: No signs and/or symptoms were reported regarding the EENT system. Derm: Skin is intact, Skin is dry, Skin is normal, Skin temperature is warm. Musculoskeletal: Circulation, motion, and sensation intact. Range of motion: intact in all extremities. 05:12 Reassessment: Patient appears in no apparent distress at this time. Patient and/or jd3 family updated on plan of care and expected duration. Pain level reassessed. Patient is alert, oriented x 3, equal unlabored respirations, skin warm/dry/pink. Patient states feeling better. 05:51 Reassessment: Patient appears in no apparent distress at this time. No changes from jd3 previously documented assessment. Patient and/or family updated on plan of care and expected duration. Pain level reassessed. Patient is alert, oriented x 3, equal unlabored respirations, skin warm/dry/pink. 06:29 Reassessment: Patient appears in no apparent distress at this time. No changes from jd3 previously documented assessment. Patient and/or family updated on plan of care and expected duration. Pain level reassessed. Patient is alert, oriented x 3, equal unlabored respirations, skin warm/dry/pink. awaiting CT results and disposition. 07:03 General: Appears in no apparent distress. comfortable, Behavior is calm, cooperative. rb1 Pain: Denies pain. Neuro: Level of Consciousness is awake, alert, obeys commands, Oriented to person, place, time, situation. Cardiovascular: Capillary refill < 3 seconds is brisk in bilateral fingers. Respiratory: Airway is patent Respiratory effort is even, unlabored, Respiratory pattern is regular, symmetrical. Derm: Skin is pink, warm \T\ dry. 07:53 Reassessment: Called fourth floor and spoke with RADHA Fernando. She asked me to call back. rb1 08:00 Reassessment: Patient appears in no apparent distress at this time. No changes from rb1 previously documented assessment. Family at the bedside. 08:03 Reassessment: Tried to call report there was no answer. rb1 08:07 Reassessment: Tried to call report but there was no answer. rb1 08:10 Reassessment: Called report to RADHA Walters. Information from the [facility] was given. All rb1 questions asked and answered. 08:26 Reassessment: Patient appears in no apparent distress at this time. Patient and/or rb1 family updated on plan of care and expected duration. Pain level reassessed. Patient is alert, oriented x 3, equal unlabored respirations, skin warm/dry/pink. Family at bedside Patient denies pain at this time. Vital Signs: 04:03 BP 157 / 83; Pulse 75; Resp 18; Temp 97.8; Pulse Ox 100% on R/A; Weight 91.63 kg (R); aa1 Height 5 ft. 8 in. (172.72 cm) (R); Pain 10/10; 05:12 BP 155 / 83; Pulse 71; Resp 18 S; Pulse Ox 97% on R/A; jd3 05:51 BP 154 / 74; Pulse 75; Resp 17 S; Pulse Ox 98% on R/A; jd3 06:29 BP 153 / 73; Pulse 82; Resp 16 S; Pulse Ox 99% on R/A; jd3 07:29 BP 145 / 74; Pulse 79; Resp 17; Temp 98.5; Pulse Ox 97% on R/A; Pain 0/10; rb1 08:29 BP 145 / 73; Pulse 78; Resp 19; Temp 98.5(O); Pulse Ox 99% on R/A; Pain 0/10; rb1 04:03 Body Mass Index 30.71 (91.63 kg, 172.72 cm) aa1 ED Course: 03:42 Patient arrived in ED. es 03:42 Sharif Sheehan DO is Private Physician. es 04:00 Triage completed. aa1 04:00 Inserted saline lock: 20 gauge in right antecubital area, using aseptic technique. ea 04:03 Arm band placed on right wrist. aa1 04:08 Cristian Arteaga MD is Attending Physician. tw4 04:31 Shane Diaz RN is Primary Nurse. jd3 04:54 Patient has correct armband on for positive identification. Placed in gown. Bed in low jd3 position. Call light in reach. Side rails up X 1. Adult w/ patient. 05:34 CT Stone Protocol In Process Unspecified. EDMS 07:07 Acosta Borden MD is Hospitalizing Provider. tw4 08:27 No provider procedures requiring assistance completed. Patient admitted, IV remains in rb1 place. Administered Medications: 04:12 Drug: NS 0.9% 500 ml Route: IV; Rate: bolus; Site: right antecubital; ea 04:13 Drug: Zofran 4 mg Route: IVP; Site: right antecubital; ea 07:05 Follow up: Response: No adverse reaction ea 04:15 Drug: TORadol 30 mg Route: IVP; Site: right antecubital; ea 07:05 Follow up: Response: No adverse reaction; Pain is decreased ea 07:04 Drug: Zofran 4 mg Route: IVP; Site: right antecubital; ea 07:30 Follow up: Response: No adverse reaction; Nausea is decreased rb1 07:04 Drug: morphine 4 mg Route: IVP; Site: right antecubital; ea 07:30 Follow up: Response: No adverse reaction; Pain is decreased rb1 07:43 Drug: NS 0.9% 1000 ml Route: IV; Rate: 125 ml/hr; Site: right antecubital; rb1 08:31 Follow up: IV Status: Infusion continued upon admission rb1 07:43 Drug: Zosyn 3.375 grams Route: IVPB; Infused Over: 60 mins; Site: right antecubital; rb1 08:30 Follow up: Response: No adverse reaction; IV Status: Completed infusion rb1 Outcome: 07:07 Decision to Hospitalize by Provider. tw4 08:27 Admitted to Tele accompanied by tech, family with patient, via wheelchair, room 420, rb1 with chart, Report called to RADHA Walters 08:27 Condition: stable 08:27 Instructed on the need for admit. 08:31 Patient left the ED. rb1 Signatures: Dispatcher [employer] Miriam Jorge RN RN aa1 Jillian Hahn Rebecca RN RN rb1 Yamilex Martins RN RN ea Davies, Jonathon, RN RN jCristian Tyson MD MD tw4 Corrections: (The following items were deleted from the chart) 04:53 04:38 GI: Abdomen is round Abd is soft X 4 quads Abdomen is tender to palpation X 4 jd3 quads. Reports diarrhea, vomiting, jd3
--- NOTE | 2019-10-06 07:09 | EDPHYS ---
Physician Documentation [facility] Name: Toney Jenkins Age: 69 yrs Sex: Male : 1950 Arrival Date: 10/06/2019 Time: 03:42 Bed 17 Private MD: Sharif Sheehan ED Physician Cristian Arteaga Historical: - Allergies: 10/06 04:03 No Known Allergies; aa1 - Home Meds: 04:03 atorvastatin 40 mg Oral tab 1 tab once daily [Active]; buspirone 10 mg oral tab 1 tab 2 aa1 times per day [Active]; carvedilol 25 mg Oral tab 1 tab 2 times per day [Active]; clopidogrel 75 mg Oral tab 1 tab once daily [Active]; doxazosin 5 mg Oral 1 tab twice a day [Active]; eplerenone 50 mg Oral tab 1 tab once daily [Active]; hydrochlorothiazide 25 mg Oral tab 1 tab once daily [Active]; losartan 100 mg Oral tab 0.5 tab twice a day [Active]; Novolog Sub-Q as needed [Active]; tresiba 12 unit am and 12 units pm [Active]; valproic acid 250 mg Oral cap 1 cap daily [Active]; hydroxyzine HCl 25 mg Oral tab 1 tab daily [Active]; - PMHx: 04:03 BPH; CVA; Diabetes - IDDM; Hypertension; Anemia; Anxiety; aa1 - PSHx: 04:03 Carpal Tunnel Repair; Knee surgery; aa1 - Immunization history:: Flu vaccine is not up to date. - Social history:: Smoking status: Patient/guardian denies using tobacco. - Ebola Screening: : No symptoms or risks identified at this time. Vital Signs: 04:03 BP 157 / 83; Pulse 75; Resp 18; Temp 97.8; Pulse Ox 100% on R/A; Weight 91.63 kg (R); aa1 Height 5 ft. 8 in. (172.72 cm) (R); Pain 10/10; 05:12 BP 155 / 83; Pulse 71; Resp 18 S; Pulse Ox 97% on R/A; jd3 05:51 BP 154 / 74; Pulse 75; Resp 17 S; Pulse Ox 98% on R/A; jd3 06:29 BP 153 / 73; Pulse 82; Resp 16 S; Pulse Ox 99% on R/A; jd3 07:29 BP 145 / 74; Pulse 79; Resp 17; Temp 98.5; Pulse Ox 97% on R/A; Pain 0/10; rb1 08:29 BP 145 / 73; Pulse 78; Resp 19; Temp 98.5(O); Pulse Ox 99% on R/A; Pain 0/10; rb1 04:03 Body Mass Index 30.71 (91.63 kg, 172.72 cm) aa1 MDM: 04:08 Patient medically screened. tw4 10/06 03:48 Order name: Basic Metabolic Panel; Complete Time: 05:58 tw4 10/06 05:58 Interpretation: Normal except: GLUC 185; GFR 82. tw4 10/06 03:48 Order name: CBC with Diff tw4 10/06 05:59 Interpretation: Normal except: RBC 3.87; HGB 11.6; HCT 33.3; JASON% 87.5; LYM% 7.7; LYMA tw4 0.6. 10/06 03:48 Order name: Creatinine for Radiology; Complete Time: 05:58 tw4 10/06 05:58 Interpretation: Within normal limits: CRE 0.94. tw4 10/06 03:48 Order name: Hepatic Function; Complete Time: 05:58 tw4 10/06 05:58 Interpretation: Normal except: TP 6.3. tw4 10/06 03:48 Order name: Lipase; Complete Time: 05:58 tw4 10/06 05:59 Interpretation: Within normal limits: LIP 145. tw4 10/06 04:04 Order name: Glucose, Ancillary Testing; Complete Time: 05:58 EDMS 10/06 05:58 Interpretation: Within normal limits: GLUC,ANCIL 188. tw4 10/06 04:08 Order name: CT Stone Protocol tw4 10/06 04:57 Order name: Manual Differential EDMS 10/06 07:15 Order name: Basic Metabolic Panel EDMS 10/06 07:15 Order name: Basic Metabolic Panel EDMS 10/06 07:15 Order name: CBC with Automated Diff EDMS 10/06 07:15 Order name: CBC with Automated Diff EDMS 10/06 03:48 Order name: IV Saline Lock; Complete Time: 04:32 tw4 10/06 03:48 Order name: Labs collected and sent; Complete Time: 04:32 tw4 10/06 07:15 Order name: COSMO GANDHI Administered Medications: 04:12 Drug: NS 0.9% 500 ml Route: IV; Rate: bolus; Site: right antecubital; ea 04:13 Drug: Zofran 4 mg Route: IVP; Site: right antecubital; ea 07:05 Follow up: Response: No adverse reaction ea 04:15 Drug: TORadol 30 mg Route: IVP; Site: right antecubital; ea 07:05 Follow up: Response: No adverse reaction; Pain is decreased ea 07:04 Drug: Zofran 4 mg Route: IVP; Site: right antecubital; ea 07:30 Follow up: Response: No adverse reaction; Nausea is decreased rb1 07:04 Drug: morphine 4 mg Route: IVP; Site: right antecubital; ea 07:30 Follow up: Response: No adverse reaction; Pain is decreased rb1 07:43 Drug: NS 0.9% 1000 ml Route: IV; Rate: 125 ml/hr; Site: right antecubital; rb1 08:31 Follow up: IV Status: Infusion continued upon admission rb1 07:43 Drug: Zosyn 3.375 grams Route: IVPB; Infused Over: 60 mins; Site: right antecubital; rb1 08:30 Follow up: Response: No adverse reaction; IV Status: Completed infusion rb1 Disposition: 10/06/19 07:07 Hospitalization ordered by Acosta Borden for Inpatient Admission. Preliminary diagnosis is Acute appendicitis with localized peritonitis. - Bed requested for Telemetry/MedSurg (Inpatient). - Status is Inpatient Admission. rb1 - Condition is Stable. - Problem is new. - Symptoms have improved. UTI on Admission? No Addendum: 10/16/2019 05:39 Addendum: HPI: Pt is a 69 year old male with history of right flank pain that radiates t w4 to his testicle. Pt states that he has had associated nausea an vomiting twice. Pt denies diarrhea, fever or chills. Pt denies urinary symptoms . Addendum: ROS: Constitutional: negative for fever chills, malaise Neck: supple nontender Resp: negative for SOB, ABAD CV: negative for CP,ABAD, palpitations Abdomen: positive for nausea, vomiting negative for diarrhea ext: negative for injury edema or pain Neuro: negative for weakness, numbness. Addendum: Physical exam: General: well developed, well nourished male in NAD HEENT: EOMI Resp: CTAB, nl BS, no respiratory distress Abdomen: soft , ND, no masses , tenderness to palpation RLQ, no guarding no rbound Ext; nontender, no edema Neuro: alert and oriented times 3, CN grossly intact strength and sensation normal. Addendum: ED course: CT scan reveal appendicitis. D/W Dr Borden will take the pt to the OR in the am agrees with treatment plan and admission. Signatures: Dispatcher [employer] EDMS Miriam Simmons RN RN aa1 Melissa Avila, RN RN rb1 Yamilex Martins RN RN Patrick Shin RN RN jaCristian De Leon MD MD tw4 Nithya Beverly Corrections: (The following items were deleted from the chart) 10/06 07:14 07:07 Hospitalization Ordered by Acosta Borden MD for Inpatient Admission. Preliminary eb diagnosis is Acute appendicitis with localized peritonitis. Bed requested for Telemetry/MedSurg (Inpatient). Status is Inpatient Admission. Condition is Stable. Problem is new. Symptoms have improved. UTI on Admission? No. tw4 07:22 07:14 10/06/2019 07:07 Hospitalization Ordered by Acosta Borden MD for Inpatient ja1 Admission. Preliminary diagnosis is Acute appendicitis with localized peritonitis. Bed requested for Telemetry/MedSurg (Inpatient). Status is Inpatient Admission. Condition is Stable. Problem is new. Symptoms have improved. UTI on Admission? No. eb 08:00 07:22 10/06/2019 07:07 Hospitalization Ordered by Acosta Borden MD for Inpatient ja1 Admission. Preliminary diagnosis is Acute appendicitis with localized peritonitis. Bed requested for Telemetry/MedSurg (Inpatient). Status is Inpatient Admission. Condition is Stable. Problem is new. Symptoms have improved. UTI on Admission? No. ja1 08:31 08:00 10/06/2019 07:07 Hospitalization Ordered by Acosta Borden MD for Inpatient rb1 Admission. Preliminary diagnosis is Acute appendicitis with localized peritonitis. Bed requested for Telemetry/MedSurg (Inpatient). Status is Inpatient Admission. Condition is Stable. Problem is new. Symptoms have improved. UTI on Admission? No. ja1
[2019-10-06] MEDS ORDERED: MORPHINE 4 MG/ML SYR IV PRN (07:10)
[2019-10-06] MEDS ORDERED: ONDANSETRON 4 MG/2 ML VIAL IV PRN (07:10)
[2019-10-06] MEDS ORDERED: PIPER/TAZO/NS 3.375gm 3.375 GM/100 ML BAG ONE (07:23)
[2019-10-06] MEDS ORDERED: NA CHLORIDE 0.9% 1,000 ML ONE ×2 (07:23→12:06)
[2019-10-06] MEDS ORDERED: Ringers Lactate 0 ML IV ONE (11:45)
[2019-10-06] MEDS: METRONIDAZOLE 500mg IVPB 500 MG/100 ML BAG IV SCH ×3 (11:57→23:15)
[2019-10-06] MEDS ORDERED: INFLUENZA VACCINE (for 3y+) 0.5 ML DOSE IMVAC ONE (12:00)
[2019-10-06] MEDS ORDERED: PNEUMOCOCCAL VACCINE 0.5 ML IMVAC ONE (12:00)
[2019-10-06] MEDS ORDERED: SUCCINYLCHOLINE 20 MG/ML (10 ML) IV ONE (13:00)
[2019-10-06] MEDS ORDERED: PROPOFOL 200 MG/20 ML VIAL IV ONE (13:07)
[2019-10-06] MEDS ORDERED: FENTANYL CITR 250 MCG/5 ML ONE (13:07)
[2019-10-06] MEDS ORDERED: MIDAZOLAM HCL 2 MG/2 ML INJ ONE (13:07)
[2019-10-06] MEDS ORDERED: ONDANSETRON 4 MG (ODT) TAB PO PRN (13:29)
--- NOTE | 2019-10-06 13:30 | P.BOP ---
Preoperative diagnosis: acute appendicitis, CVA, peritonitis Postoperative diagnosis: same Primary procedure: Laparoscopic appendectomy Estimated blood loss: <10cc Specimen: madhu Findings: acute appendicititis Anesthesia: General Complications: None Transferred to: Recovery Room Condition: Good
[2019-10-06] MEDS ORDERED: ROCURONIUM 50 MG/5 ML VIAL IV ONE (13:56)
[2019-10-06] MEDS ORDERED: Ringers Lactate 1,000 ML IV ONE (13:57)
[2019-10-06] MEDS ORDERED: NEOSTIGMINE 1 MG/ML -5 ML ONE (13:57)
[2019-10-06] MEDS ORDERED: GLYCOPYRROLATE 0.2 MG/ML SYR ONE ×2 (13:57)
[2019-10-06] MEDS ORDERED: hydrOXYzine HCL 25 MG TAB PO PRN (14:58)
[2019-10-06] MEDS ORDERED: HOME MED 1 EA UNK SQ PRN (16:42)
[2019-10-06] MEDS: CEFOXITIN/SWI 1gm 1 GM/10 ML SYR IVP SCH ×2 (17:18→23:15)
[2019-10-06] MEDS: carvediloL 25 MG TAB PO SCH (17:22)
[2019-10-06] MEDS ORDERED: CEFOXITIN SODIUM 1 GM/VIAL IVPB SCH (18:00)
[2019-10-06] MEDS ORDERED: NOVOLOG FLEXPEN SQ PRN (18:27)
[2019-10-06] MEDS: BUSPIRONE HCL 5 MG TABLET PO SCH (20:24)
[2019-10-06] MEDS: DOXAZOSIN 2 MG TAB PO SCH (20:24)
[2019-10-06] MEDS: LOSARTAN POTASSIUM 50 MG TABLET PO SCH (20:25)
[2019-10-06] MEDS: ATORVASTATIN 40 MG TAB PO SCH (20:25)
[2019-10-06] MEDS: TRESIBA FLEX TOUCH PEN SQ SCH (20:28)
--- NOTE | 2019-10-06 20:59 | P.CNS ---
Date of Consult: 10/06/19 Reason for Consult: HTN Requesting Physician: Acosta Borden Chief Complaint: Abdominal Pain History of Present Illness: 69 yo WM DM, HTN presented to the ER with less than 24 hours of moderate to severe, progressive lower abdominal pain with associated peritoneal symptoms. His presentation was complicated by N/V and hypoglycemia. He was unable to keep his medications down. He was concerned that he may have had food poisoning. Diagnosis: Acute appendicitis with localized peritonitis Presenting complaint: Patient states: lower abd pain that radiates to testicle since aa1 last night. Also reports episode of V/D as well. Transition of care: patient was not received from another setting of care. Onset of symptoms was October 05, 2019. Risk Assessment: Do you want to hurt yourself or someone else? Patient reports no desire to harm self or others. Initial Sepsis Screen: Does the patient meet any 2 criteria? No. Patient's initial sepsis screen is negative. Does the patient have a suspected source of infection? Yes: Acute abdominal pain. Care prior to arrival: None. Allergies No Known Allergies Allergy (Verified 10/21/18 03:45) Home medications list reviewed: Yes Home Medications: Atorvastatin Calcium [Lipitor] 40 mg PO BEDTIME 10/06/19 Buspirone HCl [Buspar] 10 mg PO BID 10/06/19 Carvedilol 25 mg PO BID 10/06/19 Clopidogrel Bisulfate [Plavix*] 75 mg PO DAILY 10/06/19 Cyanocobalamin (Vitamin B-12) [Vitamin B12] 1 tab PO DAILY 10/06/19 Doxazosin [Cardura*] 5 mg PO BID 10/06/19 Eplerenone 50 mg PO DAILY 10/06/19 Ferrous Fumarate/Folic Acid [Hemocyte-F Tablet] 1 tab PO DAILY 10/06/19 Hydroxyzine HCl [Atarax] 25 mg PO PRN 10/06/19 Insulin Aspart [Novolog Flexpen] See Protocol SQ PRN 10/06/19 Insulin Degludec [Tresiba Flextouch U-100] 12 units SQ BID 10/06/19 Losartan Potassium [Cozaar*] 50 mg PO BID 10/06/19 Multivitamin [Daily Multiple Vitamin] 1 tab PO DAILY 10/06/19 Ubidecarenone [Co Q-10] 200 mg PO DAILY 10/06/19 Valproic Acid 250 mg PO DAILY 10/06/19 hydroCHLOROthiazide [Hydrodiuril*] 25 mg PO DAILY 10/06/19 - Past Medical/Surgical History Diabetic: Yes -: BPH -: hypertension -: Diabetes Mellitus -: Stroke -: Anxiety -: Anemia -: carpal tunnel -: knee surgery - Family History Mother Medical History: Heart disease - Social History Alcohol use: Yes CD- Drugs: No Caffeine use: No Place of Residence: Home Review of Systems 10-point ROS is otherwise unremarkable General: Malaise Gastrointestinal: Nausea, Vomiting, Abdominal Pain Neurological: Weakness Physical Examination Temp Pulse Resp BP Pulse Ox 98.2 F 81 16 150/70 H 91 10/06/19 14:54 10/06/19 20:24 10/06/19 17:23 10/06/19 20:24 10/06/19 14:54 General: Oriented x3, Cooperative HEENT: Atraumatic, Mucous membr. moist/pink Neck: Supple Respiratory: Clear to auscultation bilaterally, Normal air movement Cardiovascular: No edema, Regular rate/rhythm, No rubs Gastrointestinal: Non-distended, Tenderness Musculoskeletal: No clubbing, No contractures Integumentary: No rashes, No cyanosis Neurological: Normal speech Laboratory Data (last 24 hrs) 10/06/19 04:17: Creatinine 0.94 10/06/19 04:17: WBC 8.1, Hgb 11.6 L, Hct 33.3 L, Plt Count 163 10/06/19 04:17: Sodium 137, Potassium 3.8, BUN 18, Creatinine 0.91, Glucose 185 H, Total Bilirubin 0.4, AST 26, ALT 31, Alkaline Phosphatase 55, Lipase 145 Conclusions/Impression: A/ Acute appendicitis HTN Edema DM II CVD with Hx stroke. Anemia in chronic illness. BPH with LUTS. P/ Continue current POC and Medications. Restart home medications as indicated. Plan for surgery today with Dr. Borden NPO. Monitor BG. Recommend RISS. Monitor for urinary retention. AM labs. Daily weight. Thank you kindly for the consultation.
[2019-10-06] MEDS: VALPROIC ACID 250 MG PO SCH (21:00)
[2019-10-06] MEDS ORDERED: HOME MED 1 EA UNK SQ SCH (21:00)
[2019-10-06] MEDS: MORPHINE 2 MG/ML SYR IV PRN (23:26)
--- NOTE | 2019-10-07 00:41 | HP ---
Date of Admission: 10/06/2019 Diagnosis: Acute appendicitis. History Of Present Illness: This is the case of a 69-year-old patient, who comes to us with right lo wer quadrant tenderness, is here with nausea and bloating and vomiting for at least 1 day duration. Patient came to the ER after not getting better, diagnosed with acute appendicitis and a surgical con sult was obtained. He denies any dysuria, hematuria, hematochezia, or melena. Denies any recent tra [place]ing out of the country. Denies any family member sick at home. Patient takes Plavix due to histo ry of CVA in the past. Last colonoscopy was about 5 years ago. Patient states it was negative. The patient is Jainism, refused blood transfusion. Allergies: NONE. Medications: Reviewed including Plavix. Primary Doctor: Sharif Sheehan D.O. Medical Problems: Include BPH, CVA, diabetes, hypertension, anemia, anxiety. Surgeries: Include carpal tunnel, knee surgery. Social History: He does not smoke. He does not drink alcohol. Review of Systems: Ten points is otherwise unremarkable. Physical Examination: GENERAL: Patient is awake and alert. HEENT: Pupils are equal and reactive, anicteric. Neck: Supple. Chest: Clear. Heart: S1, S2. Abdomen: Right lower quadrant tenderness with guarding and rebound. Genitalia: Rectal deferred. Extremities: Good capillary refill. Neurologic: Cranial nerves 2 through 12 grossly within normal limits. The patient has a history of CVA. CAT scan of the abdomen and pelvis shows dilatation of the appendix consistent with acute appendiciti s. The patient was also informed about the findings on the bladder and the importance of following u p with his urologist. Assessment And Plan: This is a 69-year-old patient, with acute appendicitis, peritonitis. The patie nt need emergent laparoscopic, possible open appendectomy with benefits, alternatives, and risks incl uding, but not limited to infection, bleeding, damage to adjacent structures, anesthesia complication , abscess, LA and even . He also understands this may not relieve any symptoms. He might need more than one surgical intervention. He understand the importance of glucose control. His is sure r ight now it is elevated. He understands also the pros and cons of refusing blood transfusion. He un derstands the risk of that. His anglican believes prohibited him from doing any at this moment and since the case of emergency we have to proceed. We also have a disadvantage of being on blood thinne rs. Once again, disadvantage, but since this is an emergency we have to proceed. The risks were ful ly explained to the patient. The patient signed the consent. CORNELL Voice ID: [id number]
--- NOTE | 2019-10-07 00:50 | OP ---
Date of Procedure: 10/06/2019 Surgeon: Acosta Borden MD Preoperative Diagnoses: 1.Acute appendicitis. 2.Cerebrovascular accident. 3.Peritonitis. Postoperative Diagnoses: 1.Acute appendicitis. 2.Cerebrovascular accident. 3.Peritonitis. Procedure: Laparoscopic appendectomy. Estimated Blood Loss: Less than 10 cc. Anesthesia: General plus local. Findings: Acute appendicitis. Complications: None. Indications: This is a case of a 69-year-old patient with emergent appendicitis. The benefits, alte rnatives, and risks of laparoscopic, possible open appendectomy fully explained, which include but ar e not limited to infection, bleeding, damage to adjacent structures, anesthesia complication, PE, CVA , hematoma, seroma, abscess, VA, and even . He also understands this may not relieve any sympto ms. He might need more than one surgical intervention. He understood, signed the consent. Description Of Procedure: Patient was brought emergently brought to the operating room, placed in miller pine position. Anesthesia was done without complication. Abdominal area was prepped and draped in u sual sterile fashion. Marcaine 0.5% was injected for local anesthetic, followed by sharp incision of skin in the infraumbilical region. Incision was carried down to fascia, which was opened under dire ct vision. Peritoneum was encountered, opened under direct vision. Vicryl #1 placed inside of the f ascia. Heather trocar was carefully introduced. No bleeding was obtained. I placed 2 more trocars, 5 mm each one of them, placed under direct visualization and is suprapubic in left lower quadrant. T his allowed me to visualize erythematous, ischemic distal appendix. The base of the appendix seems t o be spared, so we created a window in the base of the appendix, transected that with an Endo GARLAND 45 mm 3.5, and the mesoappendix sequentially with an Endo GARLAND 45 mm 2.5, making sure absolute hemostasis . Appendix removed from abdominal cavity using an EndoCatch through the umbilical incision. The are a was irrigated and suctioned. Once again, no evidence of any bleeding. At that moment, I proceeded to remove the trocars under direct vision. Deflated the pneumoperitoneum, closed the fascia with #1 Vicryl, irrigated subcutaneous tissue, closed that with 3-0 chromic and skin with radha. Sponge c ount and instrument counts were correct. Patient tolerated the procedure well. Patient was sent to Recovery in stable condition. PAMELA/EMILY Voice ID: [id number] Report ID: [id number]
[2019-10-07] MEDS: MORPHINE 2 MG/ML SYR IV PRN (04:52)
[2019-10-07 05:00] LABS: Absolute Lymphocytes (CBC) 0.9 K/uL (0.7-4.9); Basophils % 0.3 % (0-1.3); Hematocrit 29.8 % (39.6-49.0); Lymphocytes % 12.9 % (15.3-44.8); MPV 8.2 fL (7.6-11.3); RBC Red Blood Cell Count 3.39 M/uL (4.33-5.43)
[2019-10-07] MEDS: CEFOXITIN/SWI 1gm 1 GM/10 ML SYR IVP SCH ×4 (05:07→22:59)
[2019-10-07] MEDS: carvediloL 25 MG TAB PO SCH ×2 (05:07→17:11)
[2019-10-07] MEDS: METRONIDAZOLE 500mg IVPB 500 MG/100 ML BAG IV SCH ×4 (05:07→22:59)
[2019-10-07 05:17] LABS: Potassium 3.8 mmol/L (3.5-5.1)
[2019-10-07 05:30] LABS: Magnesium 1.7 mg/dL (1.8-2.4); Phosphorus 2.8 mg/dL (2.5-4.9); Uric Acid 2.8 mg/dL (3.5-7.2)
[2019-10-07 05:46] LABS: UR MICROALBUMIN 1.5 mg/dL (< 1.9)
[2019-10-07 05:49] LABS: Urine Appearance CLEAR; Urine Color YELLOW
[2019-10-07 05:50] LABS: Urine Bilirubin NEGATIVE (NEG); Urine Blood 1+ (NEG); Urine Glucose NEGATIVE (NEG); Urine Protein NEGATIVE (NEG); Urine Urobilinogen 0.2 mg/dL (0.2-1.0)
[2019-10-07 05:53] LABS: Urine Bacteria <20 /HPF (NONE SEEN); Urine Culture Reflex Order REFLEXED
[2019-10-07] MEDS ORDERED: HOME MED 1 EA UNK PO SCH ×2 (09:00)
[2019-10-07] MEDS ORDERED: CYANOCOBALAMIN 1,000 MCG TAB PO SCH (09:00)
[2019-10-07] MEDS ORDERED: hydroCHLOROthiazide 12.5 MG CAP PO SCH (09:00)
[2019-10-07] MEDS: COENZYME Q10- 200 MG CAP PO SCH (09:12)
[2019-10-07] MEDS: CLOPIDOGREL 75 MG TABLET PO SCH (09:12)
[2019-10-07] MEDS: CYANOCOBALAMIN 1,000 MCG TAB PO SCH (09:13)
[2019-10-07] MEDS: BUSPIRONE HCL 5 MG TABLET PO SCH ×2 (09:13→21:08)
[2019-10-07] MEDS: DOXAZOSIN 2 MG TAB PO SCH ×2 (09:13→21:06)
[2019-10-07] MEDS: LOSARTAN POTASSIUM 50 MG TABLET PO SCH ×2 (09:14→21:08)
[2019-10-07] MEDS: MULTIVITAMIN TAB PO SCH (09:14)
[2019-10-07] MEDS: VALPROIC ACID 250 MG PO SCH ×2 (09:14→21:06)
[2019-10-07] MEDS: TRESIBA FLEX TOUCH PEN SQ SCH ×2 (09:16→21:00)
[2019-10-07] MEDS: FE SULF/FA/VIT B COMP & C TAB PO SCH (09:18)
[2019-10-07] MEDS: EPLERENONE 50 MG TABLET PO SCH (09:18)
[2019-10-07] MEDS: HYDROCODONE/APAP 7.5/325 MG TAB PO PRN ×2 (09:22→21:09)
--- NOTE | 2019-10-07 13:54 | P.PN ---
Date of Service: 10/07/19 Vital Signs Temp Pulse Resp BP Pulse Ox 98.5 F 67 18 117/65 95 10/07/19 12:00 10/07/19 12:00 10/07/19 12:00 10/07/19 12:00 10/07/19 12:00 Medications Hydrocodone Bitart/Acetaminophen ([place] 7.5/325 Mg) 1 tab PO Q4H PRN PRN Reason: Pain scale 8-10 (Severe) Stop: 11/05/19 13:30 Last Admin: 10/07/19 09:22 Dose: 1 tab Atorvastatin Calcium (Lipitor) 40 mg PO BEDTIME [facility] Stop: 11/05/19 21:01 Last Admin: 10/06/19 20:25 Dose: 40 mg Buspirone HCl (Buspar) 10 mg PO BID [facility] Stop: 11/05/19 21:01 Last Admin: 10/07/19 09:13 Dose: 10 mg Calcitriol (Rocaltrol) 0.5 mcg PO DAILY [facility] Stop: 11/07/19 09:01 Carvedilol (Coreg) 25 mg PO BID 6AM 6PM [facility] Stop: 11/05/19 18:01 Last Admin: 10/07/19 05:07 Dose: 25 mg Cholecalciferol (Vitamin D 5,000 Iu Cap) 5,000 unit PO DAILY [facility] Stop: 11/07/19 09:01 Clopidogrel Bisulfate (Plavix) 75 mg PO DAILY [facility] Stop: 11/06/19 09:01 Last Admin: 10/07/19 09:12 Dose: 75 mg Coenzyme Q10 (Coenzyme Q10) 200 mg PO DAILY [facility] Stop: 11/06/19 09:01 Last Admin: 10/07/19 09:12 Dose: 200 mg Cyanocobalamin (Vitamin B-12) 2,000 mcg PO DAILY [facility] Stop: 11/06/19 09:01 Last Admin: 10/07/19 09:13 Dose: 2,000 mcg Docusate Sodium (Colace Cap) 100 mg PO BID [facility] Stop: 11/06/19 21:01 Doxazosin Mesylate (Cardura) 5 mg PO BID [facility] Stop: 11/05/19 21:01 Last Admin: 10/07/19 09:13 Dose: 5 mg Home Med (Home Med) 1 ea PO BID [facility] Stop: 11/05/19 21:01 Last Admin: 10/07/19 09:14 Dose: 1 ea Home Med (Home Med) 1 ea PO DAILY [facility] Stop: 11/06/19 09:01 Last Admin: 10/07/19 09:18 Dose: 1 ea Home Med (Home Med) 12 ea SQ BID [facility] Stop: 11/05/19 21:01 Last Admin: 10/07/19 09:16 Dose: 12 ea Home Med (Home Med) 0 ea SQ DIRECTED PRN PRN Reason: hyperglycemia Stop: 11/05/19 18:28 Hydrochlorothiazide (Hydrochlorothiazide) 25 mg PO DAILY [facility] Stop: 11/06/19 09:01 Last Admin: 10/07/19 09:14 Dose: 25 mg Hydroxyzine HCl (Atarax) 25 mg PO DAILYPRN PRN PRN Reason: ANXIETY Stop: 11/05/19 14:59 Metronidazole/Sodium Chloride (Flagyl 500mg/100 Ml Iv Premix) 500 mg in 100 mls @ 200 mls/hr IV Q6HR [facility]; Protocol Stop: 11/05/19 12:01 Last Admin: 10/07/19 11:23 Dose: 100 mls Cefoxitin Sodium (Mefoxin 1 Gm/10 Ml Swi Ivp) 1 gm in 10 mls @ 200 mls/hr IVP Q6HR [facility] Stop: 11/05/19 18:01 Last Admin: 10/07/19 11:23 Dose: 10 mls Losartan Potassium (Cozaar) 50 mg PO BID [facility] Stop: 11/05/19 21:01 Last Admin: 10/07/19 09:14 Dose: 50 mg Morphine Sulfate (Morphine Sulfate) 2 mg IV Q4H PRN PRN Reason: Pain scale 5-7 (Moderate) Stop: 11/05/19 13:59 Last Admin: 10/07/19 04:52 Dose: 2 mg Multivitamins/Iron (Hemocyte Plus) 1 tab PO DAILY WITH BREAKFAST [facility] Stop: 11/06/19 08:01 Last Admin: 10/07/19 09:18 Dose: 1 tab Multivitamins/Minerals (Centrum Tablet) 1 tab PO DAILY [facility] Stop: 11/06/19 09:01 Last Admin: 10/07/19 09:14 Dose: 1 tab Ondansetron HCl (Zofran) 4 mg PO Q6H PRN PRN Reason: NAUSEA / VOMITING Stop: 11/05/19 13:30 Sodium Chloride (Normal Saline Flush) 10 ml IV BID [facility] Stop: 11/05/19 09:01 Last Admin: 10/07/19 09:18 Dose: 10 ml Assessment/ Plan: Nephrology Still with abdominal pain this morning. +Flatus Currently on a clear liquid diet. CPS stable without CP or SOB. No acute events overnight. Vitals, medications, blood work and imaging reviewed in the chart. General: Oriented x3, Cooperative HEENT: Atraumatic, Mucous membr. moist/pink Neck: Supple Respiratory: Clear to auscultation bilaterally, Normal air movement Cardiovascular: No edema, Regular rate/rhythm, No rubs Gastrointestinal: Distended, Tenderness Musculoskeletal: No clubbing, No contractures Integumentary: No rashes, No cyanosis Neurological: Normal speech Laboratory Data (last 24 hrs) 10/06/19 04:17: Creatinine 0.94 10/06/19 04:17: WBC 8.1, Hgb 11.6 L, Hct 33.3 L, Plt Count 163 10/06/19 04:17: Sodium 137, Potassium 3.8, BUN 18, Creatinine 0.91, Glucose 185 H, Total Bilirubin 0.4, AST 26, ALT 31, Alkaline Phosphatase 55, Lipase 145 Conclusions/Impression: A/ Acute appendicitis sp appendectomy 10-06-19 Hyponatremia HTN Edema DM II CVD with Hx stroke. Anemia in chronic illness. BPH with LUTS. P/ Continue current POC and Medications. Hold HCTZ at this time due to hyponatremia. Follow up with Dr. Borden. Advance diet as tolerated. Continue insulin. Monitor for urinary retention. AM labs. Daily weight.
[2019-10-07] MEDS: DOCUSATE NA 100 MG CAP PO SCH (21:00)
[2019-10-07] MEDS ORDERED: MAGNESIUM OXIDE 400 MG TAB PO SCH (21:00)
[2019-10-07] MEDS: ATORVASTATIN 40 MG TAB PO SCH (21:08)
--- NOTE | 2019-10-07 23:37 | PN ---
Date of Progress Note: 10/07/2019 Diagnoses: Cerebrovascular accident, diabetes, acute appendicitis. Procedure: Laparoscopic appendectomy. Patient is improving, although blood work is still glucose elevated. Dr. Sheehan kindly has seen the patient for that. Patient passed gas today. No shortness of breath. No chest pain. Objective: Chest: Clear. Abdomen: Soft and depressible. Intact surgical site. Extremities: Good capillary refill. Laboratory Data: Blood work review including a glucose that flipped between 234 and 193. Plan: Continue diet. We going to ask Dr. Sheehan tomorrow of patient progress and discharge home wh enever Dr. Sheehan believes it is proper from a medical standpoint. We advised the patient if he get s discharged we going to send the patient on p.o. antibiotics. No heavy lifting and follow up in my office in 1 week. PAMELA/EMILY Voice ID: [id number] Report ID: [id number]
[2019-10-08] MEDS: carvediloL 25 MG TAB PO SCH (05:15)
[2019-10-08] MEDS: HYDROCODONE/APAP 7.5/325 MG TAB PO PRN (05:15)
[2019-10-08] MEDS: CEFOXITIN/SWI 1gm 1 GM/10 ML SYR IVP SCH ×2 (05:15→11:53)
[2019-10-08] MEDS: METRONIDAZOLE 500mg IVPB 500 MG/100 ML BAG IV SCH ×2 (05:15→11:53)
[2019-10-08 05:30] VITALS: BMI 31.1
[2019-10-08 05:59] LABS: Magnesium 1.9 mg/dL (1.8-2.4); Potassium 3.9 mmol/L (3.5-5.1); Uric Acid 2.8 mg/dL (3.5-7.2)
[2019-10-08 06:01] LABS: Absolute Lymphocytes (CBC) 1.1 K/uL (0.7-4.9); Basophils % 0.1 % (0-1.3); Hematocrit 28.7 % (39.6-49.0); Lymphocytes % 22.1 % (15.3-44.8); MPV 8.5 fL (7.6-11.3); RBC Red Blood Cell Count 3.32 M/uL (4.33-5.43)
[2019-10-08] MEDS: TRESIBA FLEX TOUCH PEN SQ SCH (08:22)
[2019-10-08] MEDS: VALPROIC ACID 250 MG PO SCH (08:24)
[2019-10-08] MEDS: DOXAZOSIN 2 MG TAB PO SCH (08:24)
[2019-10-08] MEDS: EPLERENONE 50 MG TABLET PO SCH (08:24)
[2019-10-08] MEDS: BUSPIRONE HCL 5 MG TABLET PO SCH (08:25)
[2019-10-08] MEDS: CLOPIDOGREL 75 MG TABLET PO SCH (08:25)
[2019-10-08] MEDS: LOSARTAN POTASSIUM 50 MG TABLET PO SCH (08:25)
[2019-10-08] MEDS: CYANOCOBALAMIN 1,000 MCG TAB PO SCH (08:25)
[2019-10-08] MEDS: DOCUSATE NA 100 MG CAP PO SCH (08:25)
[2019-10-08] MEDS: MULTIVITAMIN TAB PO SCH (08:25)
[2019-10-08] MEDS: COENZYME Q10- 200 MG CAP PO SCH (08:26)
[2019-10-08] MEDS: FE SULF/FA/VIT B COMP & C TAB PO SCH (08:26)
[2019-10-08] MEDS ORDERED: VITAMIN D 5,000 UNIT CAP PO SCH (09:00)
[2019-10-08] MEDS ORDERED: CALCITROL 0.25 MCG CAP PO SCH (09:00)
[2019-10-08 12:22] VITALS: BP 137/77; TEMP 97.8
[2019-10-08 12:27] VITALS: O2SAT 98
--- NOTE | 2019-10-08 13:15 | RAD REPORT ---
EXAM DESCRIPTION: CT ABDOMEN AND PELVIS WITHOUT CONTRAST CLINICAL HISTORY: ABD PAIN COMPARISON: 03/23/2018 TECHNIQUE: CT of the abdomen and pelvis without IV contrast. Evaluation of the solid organs and vasc ulature is suboptimal due to lack of IV contrast. FINDINGS: Lung Bases: The visualized lung bases are clear. Bones: Degenerative change of the spine. Abdomen: Liver: The liver has normal size and density. Gallbladder: No calcified gallstones. Spleen, Pancreas, and Adrenal Glands: The spleen, pancreas, and adrenal glands are unremarkable. Kidneys: The kidneys have normal size without evidence of hydronephrosis. No obstructing ureteral meenu culi. Nonspecific perinephric fat stranding. Vasculature: Aortoiliac atherosclerosis. IVC is unremarkable. Stomach: Small hiatal hernia. Other: No free intraperitoneal air. No free fluid or lymphadenopathy. Pelvis: Bladder: Mild fat stranding adjacent to the urinary bladder. The bladder has irregular appearance o f likely wall thickening. Possible hypodensity fluid in the urinary bladder is indeterminate etiology . Bowel: No dilated loops of large or small bowel. Appendix: There is been interval dilation of the tip of the appendix, measuring up to 1.4 cm, with periappendiceal inflammatory change. No periappendiceal abscess formation. Pelvis: Prostate is not enlarged. IMPRESSION: 1. Interval dilation of the tip of the appendix with periappendiceal inflammatory change . Findings suggest acute early uncomplicated appendicitis. 2. Wall thickening of the urinary bladder with possible high density fluid and adjacent inflammatory change. These findings could be seen with cystitis. Correlation with urinalysis recommended. 3. Small hiatal hernia. This exam was performed according to our departmental dose-optimization program, which includes autom ated exposure control, adjustment of the mA and/or kV according to patient size and/or use of iterati ve reconstruction technique. Electronically signed by: Carl Luther 10/06/2019 6:00 AM BEHAVIORAL SERVICES TECH Due to temporary technical issues with the PACS/Fluency reporting system, reports are being signed by the in house radiologist as a courtesy to ensure prompt reporting. The interpreting radiologist is f ully responsible for the content of the report.
--- NOTE | 2019-10-08 13:22 | P.PN ---
Date of Service: 10/08/19 Vital Signs Temp Pulse Resp BP Pulse Ox 97.8 F 62 16 137/77 98 10/08/19 12:00 10/08/19 12:00 10/08/19 12:00 10/08/19 12:00 10/08/19 12:00 Medications Hydrocodone Bitart/Acetaminophen ([place] 7.5/325 Mg) 1 tab PO Q4H PRN PRN Reason: Pain scale 8-10 (Severe) Stop: 11/05/19 13:30 Last Admin: 10/08/19 05:15 Dose: 1 tab Atorvastatin Calcium (Lipitor) 40 mg PO BEDTIME [facility] Stop: 11/05/19 21:01 Last Admin: 10/07/19 21:08 Dose: 40 mg Buspirone HCl (Buspar) 10 mg PO BID [facility] Stop: 11/05/19 21:01 Last Admin: 10/08/19 08:25 Dose: 10 mg Calcitriol (Rocaltrol) 0.5 mcg PO DAILY [facility] Stop: 11/07/19 09:01 Last Admin: 10/08/19 08:26 Dose: 0.5 mcg Carvedilol (Coreg) 25 mg PO BID 6AM 6PM [facility] Stop: 11/05/19 18:01 Last Admin: 10/08/19 05:15 Dose: 25 mg Clopidogrel Bisulfate (Plavix) 75 mg PO DAILY [facility] Stop: 11/06/19 09:01 Last Admin: 10/08/19 08:25 Dose: 75 mg Coenzyme Q10 (Coenzyme Q10) 200 mg PO DAILY [facility] Stop: 11/06/19 09:01 Last Admin: 10/08/19 08:26 Dose: 200 mg Cyanocobalamin (Vitamin B-12) 2,000 mcg PO DAILY [facility] Stop: 11/06/19 09:01 Last Admin: 10/08/19 08:25 Dose: 2,000 mcg Docusate Sodium (Colace Cap) 100 mg PO BID [facility] Stop: 11/06/19 21:01 Last Admin: 10/08/19 08:25 Dose: 100 mg Doxazosin Mesylate (Cardura) 5 mg PO BID [facility] Stop: 11/05/19 21:01 Last Admin: 10/08/19 08:24 Dose: 5 mg Home Med (Home Med) 1 ea PO BID [facility] Stop: 11/05/19 21:01 Last Admin: 10/08/19 08:24 Dose: 1 ea Home Med (Home Med) 1 ea PO DAILY [facility] Stop: 11/06/19 09:01 Last Admin: 10/08/19 08:24 Dose: 1 ea Home Med (Home Med) 12 ea SQ BID [facility] Stop: 11/05/19 21:01 Last Admin: 10/08/19 08:22 Dose: 12 ea Home Med (Home Med) 0 ea SQ DIRECTED PRN PRN Reason: hyperglycemia Stop: 11/05/19 18:28 Last Admin: 10/07/19 17:14 Dose: 1 ea Hydrochlorothiazide (Hydrochlorothiazide) 25 mg PO DAILY [facility] Stop: 11/06/19 09:01 Last Admin: 10/07/19 09:14 Dose: 25 mg Hydroxyzine HCl (Atarax) 25 mg PO DAILYPRN PRN PRN Reason: ANXIETY Stop: 11/05/19 14:59 Metronidazole/Sodium Chloride (Flagyl 500mg/100 Ml Iv Premix) 500 mg in 100 mls @ 200 mls/hr IV Q6HR [facility]; Protocol Stop: 11/05/19 12:01 Last Admin: 10/08/19 11:53 Dose: 100 mls Cefoxitin Sodium (Mefoxin 1 Gm/10 Ml Swi Ivp) 1 gm in 10 mls @ 200 mls/hr IVP Q6HR [facility] Stop: 11/05/19 18:01 Last Admin: 10/08/19 11:53 Dose: 10 mls Losartan Potassium (Cozaar) 50 mg PO BID [facility] Stop: 11/05/19 21:01 Last Admin: 10/08/19 08:25 Dose: 50 mg Magnesium Oxide (Mag 0x Tab) 400 mg PO BEDTIME [facility] Stop: 11/06/19 21:01 Last Admin: 10/07/19 21:08 Dose: 400 mg Morphine Sulfate (Morphine Sulfate) 2 mg IV Q4H PRN PRN Reason: Pain scale 5-7 (Moderate) Stop: 11/05/19 13:59 Last Admin: 10/07/19 04:52 Dose: 2 mg Multivitamins/Iron (Hemocyte Plus) 1 tab PO DAILY WITH BREAKFAST [facility] Stop: 11/06/19 08:01 Last Admin: 10/08/19 08:26 Dose: 1 tab Multivitamins/Minerals (Centrum Tablet) 1 tab PO DAILY [facility] Stop: 11/06/19 09:01 Last Admin: 10/08/19 08:25 Dose: 1 tab Ondansetron HCl (Zofran) 4 mg PO Q6H PRN PRN Reason: NAUSEA / VOMITING Stop: 11/05/19 13:30 Sodium Chloride (Normal Saline Flush) 10 ml IV BID [facility] Stop: 11/05/19 09:01 Last Admin: 10/08/19 08:26 Dose: 10 ml Assessment/ Plan: Nephrology Feeling better today. +BM CPS stable without CP or SOB. No acute events overnight. Vitals, medications, blood work and imaging reviewed in the chart. General: Oriented x3, Cooperative HEENT: Atraumatic, Mucous membr. moist/pink Neck: Supple Respiratory: Clear to auscultation bilaterally, Normal air movement Cardiovascular: No edema, Regular rate/rhythm, No rubs Gastrointestinal: Non-distended. Musculoskeletal: No clubbing, No contractures Integumentary: No rashes, No cyanosis Neurological: Normal speech Laboratory Data (last 24 hrs) 10/06/19 04:17: Creatinine 0.94 10/06/19 04:17: WBC 8.1, Hgb 11.6 L, Hct 33.3 L, Plt Count 163 10/06/19 04:17: Sodium 137, Potassium 3.8, BUN 18, Creatinine 0.91, Glucose 185 H, Total Bilirubin 0.4, AST 26, ALT 31, Alkaline Phosphatase 55, Lipase 145 Conclusions/Impression: A/ Acute appendicitis sp appendectomy 10-06-19 Hyponatremia HTN Edema DM II CVD with Hx stroke. Anemia in chronic illness. BPH with LUTS. P/ Continue current POC and Medications. Follow up with Dr. Borden. Advance diet as tolerated. Continue insulin. Monitor for urinary retention. AM labs. Daily weight. Possible discharge today.
== END 2019-10-08 14:16 | disposition home or self-care (01) ==
LOC: ER 03:40 → ERHOLD 07:10 → INTOOBSV 07:10 → 4TH 08:21
PROVIDERS: ADMIT Surgery; ATTEND Surgery
PROC: 0DTJ4ZZ Resection of Appendix, Percutaneous Endoscopic Approach (ICD-10-PCS; principal; 2019-10-06 13:00)
DX: K35.33 Acute appendicitis with perforation, localized peritonitis, and gangrene, with abscess (principal); N40.1 Benign prostatic hyperplasia with lower urinary tract symptoms; E87.1 Hypo-osmolality and hyponatremia; E11.9 Type 2 diabetes mellitus without complications; Z86.73 Personal history of transient ischemic attack (TIA), and cerebral infarction without residual deficits
CPT/HCPCS: 96365; 87088; 85025 ×3; 81001; 80048 ×3; 36415 ×3; 83735 ×2; 84100; 82947 ×10; 80076; 84550 ×2; 88304; 82570; 83690; 82043; 76377; 74176; 96375; 99285; 44970; J2704; J0330; J2250; J3010; J2543; J2270 ×2; J2710; G0378 ×5; J7120; J7040; J7030 ×2; J2405 ×2; 87086

== ENCOUNTER 2019-11-09 19:30 | Observation (INO) | payer OTHER ==
[2019-11-09] MEDS ORDERED: ACETAMINOPHEN 500 MG TAB ONE (20:35)
[2019-11-09] MEDS ORDERED: OSELTAMIVIR 75 MG CAP ONE (20:35)
[2019-11-09] MEDS ORDERED: NA CHLORIDE 0.9% 250 ML ONE (20:36)
[2019-11-09] MEDS ORDERED: AZITHROMYCIN 500 MG INJ IVPB ONE (20:36)
[2019-11-09] MEDS ORDERED: NA CHLORIDE 0.9% 1,000 ML ONE ×2 (20:36→21:29)
[2019-11-09] MEDS ORDERED: CEFTRIAXONE/SWI 1gm 1 GM/10 ML SYR ONE ×2 (20:36→21:29)
[2019-11-09 20:48] LABS: Absolute Lymphocytes (CBC) 0.4 K/uL (0.7-4.9); Basophils % 0.3 % (0-1.3); Hematocrit 32.3 % (39.6-49.0); Lymphocytes % 8.9 % (15.3-44.8); MPV 8.3 fL (7.6-11.3); RBC Red Blood Cell Count 3.71 M/uL (4.33-5.43)
[2019-11-09 20:51] LABS: Protime INR 1.14
--- NOTE | 2019-11-09 21:06 | RAD REPORT ---
EXAM DESCRIPTION: Leo Almonte And Kamala (2 Views)11/09/2019 8:46 pm CLINICAL HISTORY: Cough COMPARISON: March 2019 FINDINGS: The lungs appear clear of acute infiltrate. The heart is mildly enlarged Blunting of the costophrenic sulci either represent very small pleural effusions or pleural thickenin g
[2019-11-09 21:10] LABS: ALT/SGPT 23 U/L (12-78); AST/SGOT 18 U/L (15-37); Albumin 3.1 g/dL (3.4-5.0); Alkaline Phosphatase 52 U/L (45-117); BUN Blood Urea Nitrogen 14 mg/dL (7-18); Bicarbonate 28 mmol/L (21-32); Bilirubin Direct 0.1 mg/dL (0-0.2); Bilirubin Total 0.4 mg/dL (0.2-1.0); Glucose Level 214 mg/dL (74-106); Magnesium 1.9 mg/dL (1.8-2.4); NT PRO-BNP 370 pg/mL (<125); Potassium 3.7 mmol/L (3.5-5.1); Protein, Total 5.8 g/dL (6.4-8.2); Sodium Level 135 mmol/L (136-145); Troponin (Emerg Dept Use Only) < 0.02 ng/mL (0.0-0.045)
--- NOTE | 2019-11-09 21:18 | EDPHYS ---
Physician Documentation [facility] Name: Toney Jenkins Age: 69 yrs Sex: Male : 1950 Arrival Date: 11/09/2019 Time: 19:33 Bed 13 Private MD: ED Physician Hung Bocanegra HPI: 11/09 21:11 This 69 yrs old Male presents to ER via Ambulatory with complaints of Flu nikki Symptoms. 21:11 The patient has shortness of breath at rest, with light activity. Onset: The nikki symptoms/episode began/occurred 2 day(s) ago. The patient's shortness of breath is aggravated by coughing, walking, is alleviated by rest, application of supplemental oxygen. The patient or guardian reports cough, difficulty breathing. Modifying factors: The symptoms are alleviated by nothing. the symptoms are aggravated by activity. weak, lethargic. Severity of symptoms: At their worst the symptoms were moderate in the emergency department the symptoms are unchanged. Historical: - Allergies: 19:43 No Known Allergies; mg2 - Home Meds: 20:00 atorvastatin 40 mg Oral tab 1 tab once daily [Active]; buspirone 10 mg Oral tab 1 tab 2 rr5 times per day [Active]; eplerenone 50 mg Oral tab 1 tab once daily [Active]; clopidogrel 75 mg Oral tab 1 tab once daily [Active]; carvedilol 25 mg Oral tab 1 tab 2 times per day [Active]; doxazosin 5 mg Oral 1 tab twice a day [Active]; hydrochlorothiazide 25 mg Oral tab 1 tab once daily [Active]; hydroxyzine HCl 25 mg Oral tab 1 tab daily [Active]; losartan 100 mg Oral tab 0.5 tab twice a day [Active]; Novolog Sub-Q as needed [Active]; tresiba 12 unit am and 12 units pm [Active]; valproic acid 250 mg Oral cap 1 cap daily [Active]; - PMHx: 19:43 Anemia; Anxiety; CVA; BPH; Diabetes - IDDM; Hypertension; mg2 - PSHx: 19:43 Appendectomy; mg2 - Immunization history:: Flu vaccine is not up to date. - Social history:: Smoking status: Patient/guardian denies using tobacco, Patient/guardian denies using alcohol, street drugs, IV drugs. - Ebola Screening: : No symptoms or risks identified at this time. ROS: 21:12 Eyes: Negative for injury, pain, redness, and discharge, ENT: Negative for injury, nikki pain, and discharge, Neck: Negative for injury, pain, and swelling, Cardiovascular: Negative for chest pain, palpitations, and edema, Abdomen/GI: Negative for abdominal pain, nausea, vomiting, diarrhea, and constipation, Back: Negative for injury and pain, : Negative for injury, bleeding, discharge, and swelling, MS/Extremity: Negative for injury and deformity, Skin: Negative for injury, rash, and discoloration, Psych: Negative for depression, anxiety, suicide ideation, homicidal ideation, and hallucinations, Allergy/Immunology: Negative for hives, rash, and allergies, Endocrine: Negative for neck swelling, polydipsia, polyuria, polyphagia, and marked weight changes, Hematologic/Lymphatic: Negative for swollen nodes, abnormal bleeding, and unusual bruising. 21:12 Constitutional: Positive for fatigue, fever. 21:12 Respiratory: Positive for cough, shortness of breath. 21:12 MS/extremity: Negative for acute changes. Exam: 21:12 Constitutional: This is a well developed, well nourished patient who is awake, alert, nikki and in no acute distress. Head/Face: Normocephalic, atraumatic. Eyes: Pupils equal round and reactive to light, extra-ocular motions intact. Lids and lashes normal. Conjunctiva and sclera are non-icteric and not injected. Cornea within normal limits. Periorbital areas with no swelling, redness, or edema. ENT: Nares patent. No nasal discharge, no septal abnormalities noted. Tympanic membranes are normal and external auditory canals are clear. Oropharynx with no redness, swelling, or masses, exudates, or evidence of obstruction, uvula midline. Mucous membranes moist. Neck: Trachea midline, no thyromegaly or masses palpated, and no cervical lymphadenopathy. Supple, full range of motion without nuchal rigidity, or vertebral point tenderness. No Meningismus. Chest/axilla: Normal chest wall appearance and motion. Nontender with no deformity. No lesions are appreciated. Cardiovascular: Regular rate and rhythm with a normal S1 and S2. No gallops, murmurs, or rubs. Normal PMI, no JVD. No pulse deficits. Abdomen/GI: Soft, non-tender, with normal bowel sounds. No distension or tympany. No guarding or rebound. No evidence of tenderness throughout. Back: No spinal tenderness. No costovertebral tenderness. Full range of motion. Male : Normal genitalia with no discharge or lesions. Skin: Warm, dry with normal turgor. Normal color with no rashes, no lesions, and no evidence of cellulitis. MS/ Extremity: Pulses equal, no cyanosis. Neurovascular intact. Full, normal range of motion. Neuro: Awake and alert, GCS 15, oriented to person, place, time, and situation. Cranial nerves II-XII grossly intact. Motor strength 5/5 in all extremities. Sensory grossly intact. Cerebellar exam normal. Normal gait. Psych: Awake, alert, with orientation to person, place and time. Behavior, mood, and affect are within normal limits. 21:12 Respiratory: the patient does not display signs of respiratory distress, Respirations: labored breathing, that is mild, Breath sounds: decreased breath sounds, that are mild, rhonchi, that are mild, are scattered, stridor, is not appreciated, + upper airway congestion. 21:13 Musculoskeletal/extremity: DVT Exam: No signs of deep vein thrombosis. no pain, no nikki swelling, no tenderness, negative Homans' sign noted on exam, no appreciated bluish discoloration, no erythema, no increased warmth. Vital Signs: 19:41 BP 135 / 97; Pulse 85; Resp 18; Temp 101.4; Pulse Ox 95% on R/A; Weight 95.71 kg; mg2 Height 5 ft. 10 in. (177.80 cm); 21:30 BP 136 / 75; Pulse 80; Resp 17; Temp 98.7; Pulse Ox 99% ; rr5 22:00 BP 135 / 72; Pulse 79; Resp 17; Pulse Ox 98% on R/A; rr5 23:00 BP 129 / 78; Pulse 79; Resp 15; Pulse Ox 98% ; rr5 11/10 00:00 BP 127 / 68; Pulse 74; Resp 19; Temp 98.5; Pulse Ox 99% on R/A; rr5 11/09 19:41 Body Mass Index 30.28 (95.71 kg, 177.80 cm) mg2 MDM: 11/09 20:27 Patient medically screened. [facility] 21:13 Data reviewed: vital signs, nurses notes, lab test result(s), EKG, radiologic studies, [facility] plain films. 11/09 19:44 Order name: Flu; Complete Time: 21:09 [facility] [place] 11/09 19:44 Order name: Strep; Complete Time: 21:09 [facility] [place] 11/09 20:13 Order name: Throat Culture [facility] 11/09 20:26 Order name: Basic Metabolic Panel [facility] 11/09 20:26 Order name: CBC with Diff [facility] 11/09 20:26 Order name: LFT's [facility] 11/09 20:26 Order name: Magnesium; Complete Time: 21:18 [facility] 11/09 20:26 Order name: NT PRO-BNP; Complete Time: 21:18 [facility] 11/09 20:26 Order name: PT-INR; Complete Time: 21:09 [facility] 11/09 20:26 Order name: Troponin (emerg Dept Use Only); Complete Time: 21:18 [facility] 11/09 20:26 Order name: Blood Culture Adult (2) [facility] 11/09 20:26 Order name: Urine Culture [facility] 11/09 20:26 Order name: Basic Metabolic Panel; Complete Time: 21:18 [facility] 11/09 20:26 Order name: CBC with Automated Diff; Complete Time: 21:09 [facility] 11/09 20:26 Order name: EKG; Complete Time: 20:27 [facility] 11/09 20:26 Order name: Cardiac monitoring; Complete Time: 21:21 [facility] 11/09 20:26 Order name: EKG - Nurse/Tech; Complete Time: 21:21 [facility] 11/09 20:26 Order name: IV Saline Lock; Complete Time: 20:49 [facility] 11/09 20:26 Order name: Chest Pa And Lat (2 Views) XRAY; Complete Time: 21:18 [facility] 11/09 20:26 Order name: Liver (Hepatic) Function; Complete Time: 21:18 [facility] 11/09 21:21 Order name: Valproic Acid (depakote) [facility] 11/09 21:23 Order name: Urine Dipstick--Ancillary (enter results) [facility] 11/09 20:26 Order name: Labs collected and sent; Complete Time: 20:49 [facility] 11/09 20:26 Order name: O2 Per Protocol; Complete Time: 21:21 [facility] 11/09 20:26 Order name: O2 Sat Monitoring; Complete Time: 22:09 [facility] Administered Medications: 20:50 Drug: Tylenol 1000 mg Route: PO; rr5 22:00 Follow up: Response: Temperature is decreased rr5 20:50 Drug: Tamiflu 75 mg Route: PO; rr5 21:50 Follow up: Response: No adverse reaction rr5 21:00 Drug: NS 0.9% 1000 ml Route: IV; Rate: 1 bolus; Site: left antecubital; rr5 21:47 Follow up: Response: No adverse reaction; IV Status: Completed infusion; IV Intake: rr5 1000ml 21:01 Drug: Rocephin 2 grams Route: IV; Rate: per protocol; Site: left antecubital; rr5 21:20 Follow up: Response: No adverse reaction; IV Status: Completed infusion; IV Intake: [id number] 21:20 Dru mg of (Zithromax 500 mg, NS 0.9% 250 ml) Route: IVPB; Infused Over: 1 hrs; rr5 Site: left antecubital; 22:20 Follow up: Response: No adverse reaction; IV Status: Completed infusion; IV Intake: rr5 250ml 21:45 Drug: Solu-CORTEF 100 mg Route: IVP; Site: left antecubital; rr5 22:45 Follow up: Response: No adverse reaction rr5 21:48 Drug: NS 0.9% 1000 ml Route: IV; Rate: 1 bolus; Site: left antecubital; rr5 23:00 Follow up: Response: No adverse reaction; IV Status: Completed infusion; IV Intake: rr5 1000ml 21:58 Drug: Tussionex Pennkinetic ER 5 ml Route: PO; rr5 23:00 Follow up: Response: No adverse reaction rr5 Disposition: 11/09/19 21:17 Hospitalization ordered by Yaquelin Saldana for Inpatient Admission. Preliminary diagnosis are Dyspnea, Type 1 diabetes mellitus, Weakness, Dehydration, Fever, unspecified, Pleural effusion in conditions classified elsewhere. - Bed requested for Telemetry/MedSurg (Inpatient). - Status is Inpatient Admission. rr5 - Condition is Fair. - Problem is new. - Symptoms have improved. UTI on Admission? No Signatures: Dispatcher [employer] EDVivi Cordova RN RN mw Anderson, Corey, MD MD cha Gardose, Michele, RN RN mg2 Roque, Raymond, RN RN rr5 Corrections: (The following items were deleted from the chart) 21:19 21:17 Hospitalization Ordered by Yaquelin Saldana MD for Inpatient Admission. Preliminary [facility] diagnosis is Dyspnea; Type 1 diabetes mellitus; Weakness; Dehydration; Fever, unspecified. Bed requested for Telemetry/MedSurg (Inpatient). Status is Inpatient Admission. Condition is Fair. Problem is new. Symptoms have improved. UTI on Admission? No. [facility] 23:44 21:19 11/09/2019 21:17 Hospitalization Ordered by Yaquelin Saldana MD for Inpatient mw Admission. Preliminary diagnosis is Dyspnea; Type 1 diabetes mellitus; Weakness; Dehydration; Fever, unspecified; Pleural effusion in conditions classified elsewhere. Bed requested for Telemetry/MedSurg (Inpatient). Status is Inpatient Admission. Condition is Fair. Problem is new. Symptoms have improved. UTI on Admission? No. nikki 11/10 00:53 11/09 23:44 11/09/2019 21:17 Hospitalization Ordered by Yaquelin Saldana MD for Inpatient rr5 Admission. Preliminary diagnosis is Dyspnea; Type 1 diabetes mellitus; Weakness; Dehydration; Fever, unspecified; Pleural effusion in conditions classified elsewhere. Bed requested for Telemetry/MedSurg (Inpatient). Status is Inpatient Admission. Condition is Fair. Problem is new. Symptoms have improved. UTI on Admission? No.
--- NOTE | 2019-11-09 21:18 | ER ---
Nurse's Notes [facility] Name: Toney Jenkins Age: 69 yrs Sex: Male : 1950 Arrival Date: 11/09/2019 Time: 19:33 Bed 13 Private MD: Diagnosis: Dyspnea;Type 1 diabetes mellitus;Weakness;Dehydration;Fever, unspecified;Pleural effusion in conditions classified elsewhere Presentation: 11/09 19:39 Presenting complaint: states: he started to have fever, cough and vomiting today. 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 Transition of care: patient was not received from another setting of care. Onset of symptoms was November 09, 2019. Risk Assessment: Do you want to hurt yourself or someone else? Patient reports no desire to harm self or others. Initial Sepsis Screen: Does the patient meet any 2 criteria? No. Patient's initial sepsis screen is negative. Does the patient have a suspected source of infection?. Care prior to arrival: None. 19:39 Method Of Arrival: Ambulatory mg2 19:39 Acuity: DANII 3 mg2 Historical: - Allergies: 19:43 No Known Allergies; mg2 - Home Meds: 20:00 atorvastatin 40 mg Oral tab 1 tab once daily [Active]; buspirone 10 mg Oral tab 1 tab 2 rr5 times per day [Active]; eplerenone 50 mg Oral tab 1 tab once daily [Active]; clopidogrel 75 mg Oral tab 1 tab once daily [Active]; carvedilol 25 mg Oral tab 1 tab 2 times per day [Active]; doxazosin 5 mg Oral 1 tab twice a day [Active]; hydrochlorothiazide 25 mg Oral tab 1 tab once daily [Active]; hydroxyzine HCl 25 mg Oral tab 1 tab daily [Active]; losartan 100 mg Oral tab 0.5 tab twice a day [Active]; Novolog Sub-Q as needed [Active]; tresiba 12 unit am and 12 units pm [Active]; valproic acid 250 mg Oral cap 1 cap daily [Active]; - PMHx: 19:43 Anemia; Anxiety; CVA; BPH; Diabetes - IDDM; Hypertension; mg2 - PSHx: 19:43 Appendectomy; mg2 - Immunization history:: Flu vaccine is not up to date. - Social history:: Smoking status: Patient/guardian denies using tobacco, Patient/guardian denies using alcohol, street drugs, IV drugs. - Ebola Screening: : No symptoms or risks identified at this time. Screenin:41 Abuse screen: Denies threats or abuse. Denies injuries from another. Nutritional mg2 screening: No deficits noted. Tuberculosis screening: No symptoms or risk factors identified. Fall Risk IV access (20 points). Assessment: 20:10 General: Appears in no apparent distress. uncomfortable, Behavior is calm, cooperative, rr5 Reports fever for. 20:10 Pain: Denies pain. Neuro: Level of Consciousness is awake, alert, obeys commands, rr5 Oriented to person, place, time, situation, Appropriate for age. Cardiovascular: Capillary refill < 3 seconds Patient's skin is warm and dry. Respiratory: Reports cough that is Airway is patent Respiratory effort is even, unlabored, Respiratory pattern is regular, symmetrical. GI: Abdomen is round Abd is soft and non tender Reports vomiting. : No signs and/or symptoms were reported regarding the genitourinary system. EENT: No signs and/or symptoms were reported regarding the EENT system. Derm: Skin is intact, is healthy with good turgor, Skin temperature is warm. Musculoskeletal: Circulation, motion, and sensation intact. Capillary refill < 3 seconds. 20:41 Reassessment: patient sent to [facility] via wheelchair. mg2 21:30 Reassessment: Patient appears in no apparent distress at this time. Patient is alert, rr5 oriented x 3, equal unlabored respirations, skin warm/dry/pink. complaints of severe cough. ED provider aware with order made and carried out. 22:45 Reassessment: Patient appears in no apparent distress at this time. Patient is alert, rr5 oriented x 3, equal unlabored respirations, skin warm/dry/pink. resting on bed eyes closed breathing spontaneously. for admission awaiting for room assignment. Patient states symptoms have improved. 23:40 Reassessment: Patient appears in no apparent distress at this time. No changes from rr5 previously documented assessment. Patient is alert, oriented x 3, equal unlabored respirations, skin warm/dry/pink. no complaints made. 11/10 00:30 Reassessment: Patient appears in no apparent distress at this time. Patient is alert, rr5 oriented x 3, equal unlabored respirations, skin warm/dry/pink. eyes closed, breathing spontaneously at room air. vitally stable. for transfer to medical surgical department. Patient states feeling better. Patient states symptoms have improved. Vital Signs: 11/09 19:41 BP 135 / 97; Pulse 85; Resp 18; Temp 101.4; Pulse Ox 95% on R/A; Weight 95.71 kg; mg2 Height 5 ft. 10 in. (177.80 cm); 21:30 BP 136 / 75; Pulse 80; Resp 17; Temp 98.7; Pulse Ox 99% ; rr5 22:00 BP 135 / 72; Pulse 79; Resp 17; Pulse Ox 98% on R/A; rr5 23:00 BP 129 / 78; Pulse 79; Resp 15; Pulse Ox 98% ; rr5 11/10 00:00 BP 127 / 68; Pulse 74; Resp 19; Temp 98.5; Pulse Ox 99% on R/A; rr5 11/09 19:41 Body Mass Index 30.28 (95.71 kg, 177.80 cm) mg2 ED Course: 11/09 19:33 Patient arrived in ED. cl3 19:41 Triage completed. mg2 19:43 Arm band placed on. mg2 19:48 Rajendra Das, RN is Primary Nurse. tr5 19:50 Flu and/or RSV swab sent to lab. Strep swab sent to lab. mg2 20:24 Hung Bocanegra MD is Attending Physician. nikki 20:30 Patient has correct armband on for positive identification. Placed in gown. Bed in low rr5 position. Call light in reach. supply chain business analyst on. Pulse ox on. NIBP on. 20:31 Pa Streeter RN is Primary Nurse. rr5 20:41 No provider procedures requiring assistance completed. Inserted saline lock: 20 gauge mg2 in left antecubital area, using aseptic technique. Blood collected. 20:42 Chest Pa And Lat (2 Views) XRAY In Process Unspecified. EDMS 21:16 Yaquelin Saldana MD is Hospitalizing Provider. nikki 22:42 Diet: Patient given snack. Diet: Patient given water. jp3 11/10 00:08 Patient admitted, IV remains in place. intact, No redness/swelling at site. rr5 Administered Medications: 11/09 20:50 Drug: Tylenol 1000 mg Route: PO; rr5 22:00 Follow up: Response: Temperature is decreased rr5 20:50 Drug: Tamiflu 75 mg Route: PO; rr5 21:50 Follow up: Response: No adverse reaction rr5 21:00 Drug: NS 0.9% 1000 ml Route: IV; Rate: 1 bolus; Site: left antecubital; rr5 21:47 Follow up: Response: No adverse reaction; IV Status: Completed infusion; IV Intake: rr5 1000ml 21:01 Drug: Rocephin 2 grams Route: IV; Rate: per protocol; Site: left antecubital; rr5 21:20 Follow up: Response: No adverse reaction; IV Status: Completed infusion; IV Intake: 68ofve3 21:20 Dru mg of (Zithromax 500 mg, NS 0.9% 250 ml) Route: IVPB; Infused Over: 1 hrs; rr5 Site: left antecubital; 22:20 Follow up: Response: No adverse reaction; IV Status: Completed infusion; IV Intake: rr5 250ml 21:45 Drug: Solu-CORTEF 100 mg Route: IVP; Site: left antecubital; rr5 22:45 Follow up: Response: No adverse reaction rr5 21:48 Drug: NS 0.9% 1000 ml Route: IV; Rate: 1 bolus; Site: left antecubital; rr5 23:00 Follow up: Response: No adverse reaction; IV Status: Completed infusion; IV Intake: rr5 1000ml 21:58 Drug: Tussionex Pennkinetic ER 5 ml Route: PO; rr5 23:00 Follow up: Response: No adverse reaction rr5 Intake: 21:20 IV: 20ml; Total: 20ml. rr5 21:47 IV: 1000ml; Total: 1020ml. rr5 22:20 IV: 250ml; Total: 1270ml. rr5 23:00 IV: 1000ml; Total: 2270ml. rr5 Outcome: 21:17 Decision to Hospitalize by Provider. nikki 11/10 00:08 Admitted to Med/surg accompanied by nurse, accompanied by tech, via wheelchair, room rr5 231, with chart, Report called to carmi Condition: stable Instructed on the need for admit. 00:53 Patient left the ED. rr5 Signatures: Dispatcher [employer] EDHung Chavez MD MD cha Gardose, Michele, RN RN mg2 David Reyna jp3 Pa Streeter RN RN rr5 Rajendra Das RN RN tr5 Vaishali Mesa cl3 Corrections: (The following items were deleted from the chart) 00:19 11/09 21:30 Reassessment: Patient appears in no apparent distress at this time. Patient rr5 is alert, oriented x 3, equal unlabored respirations, skin warm/dry/pink. awaiting for results. rr5
[2019-11-09] MEDS ORDERED: HYDROCORTISONE SUC 100 MG INJ ONE (21:28)
[2019-11-09] MEDS ORDERED: HYDROCODONE/CHLORPHEN 5 ML/OSYR ONE (21:57)
[2019-11-09 22:03] LABS: Urine Blood 1+ (NEG); Urine Glucose NEGATIVE (NEG); Urine Protein NEGATIVE (NEG)
[2019-11-10] MEDS ORDERED: NA CHLORIDE 0.9% 1,000 ML IV SCH (00:57)
[2019-11-10] MEDS ORDERED: BENZONATATE 100 MG CAP PO PRN (00:57)
[2019-11-10] MEDS ORDERED: ALBUTEROL 2.5 MG/3 ML NEB SOL NEB PRN ×2 (00:57→09:00)
[2019-11-10] MEDS ORDERED: IPRATROPIUM BROM 0.5MG/2.5ML NEB PRN (00:57)
[2019-11-10] MEDS ORDERED: CEFTRIAXONE 1 GM/NS 50 ML 1 GM/50 ML BAG IV ONE (00:57)
[2019-11-10] MEDS ORDERED: HYDROCODONE/CHLORPHEN 5 ML/OSYR PO PRN (00:57)
[2019-11-10] MEDS ORDERED: ONDANSETRON 4 MG/2 ML VIAL IV PRN (00:57)
[2019-11-10] MEDS ORDERED: AZITHROMYCIN IV 500 MG in NA CHLORIDE 0.9% 250 ML IVPB ONE (00:57)
[2019-11-10] MEDS ORDERED: ACETAMINOPHEN 500 MG TAB PO PRN (00:57)
[2019-11-10] MEDS ORDERED: ALPRAZOLAM 0.25 MG TABLET PO PRN (00:57)
[2019-11-10 01:09] VITALS: BMI 29.7
[2019-11-10] MEDS ORDERED: ACETAMINOPHEN 325 MG TABLET PO PRN (02:00)
[2019-11-10] MEDS ORDERED: HOME MED 1 EA UNK (Hydroxyzine Hcl [Atarax] 25 MG) PO SCH (02:15)
[2019-11-10] MEDS ORDERED: GLUCAGON 1 MG/VIAL IM PRN (02:27)
[2019-11-10] MEDS ORDERED: D50W 25 GM/50 ML SYRINGE/VIAL IV PRN (02:27)
[2019-11-10 03:17] LABS: Urine Appearance CLEAR; Urine Bilirubin NEGATIVE (NEG); Urine Blood TRACE (NEG); Urine Color YELLOW; Urine Glucose 3+ (NEG); Urine Protein NEGATIVE (NEG); Urine Specific Gravity 1.025 (1.005-1.030); Urine Urobilinogen 0.2 mg/dL (0.2-1.0)
[2019-11-10 04:16] LABS: Urine Bacteria <20 /HPF (NONE SEEN); Urine Culture Reflex Order NOT NEEDED; Urine Microscopic Reflex ORDER UMIC; Urine RBC <5 /HPF (NONE SEEN)
[2019-11-10] MEDS: METHYLPREDNISOLONE 125 MG INJ IV SCH ×2 (06:28→11:41)
[2019-11-10] MEDS ORDERED: hydrOXYzine HCL 25 MG TAB PO PRN (07:10)
--- NOTE | 2019-11-10 07:28 | P.HP ---
Certification for Inpatient Patient admitted to: Observation With expected LOS: <2 Midnights Patient will require the following post-hospital care: None Practitioner: I am a practitioner with admitting privileges, knowledge of patient current condition, hospital course, and medical plan of care. Services: Services provided to patient in accordance with Admission requirements found in Title 42 Section 412.3 of the Code of Federal Regulations Patient History Date of Service: 11/10/19 Reason for admission: Chest pain and shortness of breath History of Present Illness: Patient is a 69-year-old gentleman who is had upper respiratory symptoms. He has been having coughing & congestion for the last couple days. He has had a cough but it was not improving. No sputum production. He did have some mild chest discomfort as well. He came into the emergency room for further evaluation. In the ER, patient had troponin and an EKG performed which was unremarkable. Chest x-ray was negative as well. Flu and strep screen was negative. Patient will be admitted to the hospital for observation. Allergies No Known Allergies Allergy (Verified 11/10/19 01:14) Home Medications: Atorvastatin Calcium [Lipitor] 40 mg PO BEDTIME 10/06/19 Buspirone HCl [Buspar] 10 mg PO BID 10/06/19 Clopidogrel Bisulfate [Plavix*] 75 mg PO DAILY 10/06/19 Cyanocobalamin (Vitamin B-12) [Vitamin B12] 1 tab PO DAILY 10/06/19 Doxazosin [Cardura*] 5 mg PO BID 10/06/19 Eplerenone 50 mg PO DAILY 10/06/19 Hydroxyzine HCl [Atarax] 25 mg PO PRN 10/06/19 Insulin Aspart [Novolog Flexpen] See Protocol SQ PRN 10/06/19 Insulin Degludec [Tresiba Flextouch U-100] 30 units SQ DAILY 10/06/19 Losartan Potassium [Cozaar*] 50 mg PO BID 10/06/19 Multivitamin [Daily Multiple Vitamin] 1 tab PO DAILY 10/06/19 Ubidecarenone [Co Q-10] 200 mg PO DAILY 10/06/19 Valproic Acid 250 mg PO DAILY 10/06/19 carvediloL [Carvedilol] 25 mg PO BID 10/06/19 hydroCHLOROthiazide [Hydrodiuril*] 25 mg PO DAILY 10/06/19 - Past Medical/Surgical History Has patient received pneumonia vaccine in the past: No Diabetic: Yes -: BPH -: hypertension -: Diabetes Mellitus -: Stroke -: Anxiety -: Anemia -: carpal tunnel -: knee surgery - Family History Mother Medical History: Heart disease - Social History Smoking Status: Former smoker Alcohol use: Yes Caffeine use: Yes Place of Residence: Home Review of Systems 10-point ROS is otherwise unremarkable Physical Examination - Vital Signs Temperature: 98.4 F Blood Pressure: 139/78 Pulse: 77 Respirations: 20 Pulse Ox (%): 97 - Physical Exam General: Alert, In no apparent distress, Oriented x3 HEENT: Atraumatic, PERRLA, Mucous membr. moist/pink, EOMI, Sclerae nonicteric Neck: Supple, 2+ carotid pulse no bruit, No LAD, Without JVD or thyroid abnormality Respiratory: Rhonchi/gurgles Cardiovascular: Regular rate/rhythm, Normal S1 S2, No murmurs Gastrointestinal: Normal bowel sounds, Soft and benign, Non-distended, No tenderness Musculoskeletal: No clubbing, No swelling, No tenderness Integumentary: No rashes Neurological: Normal gait, Normal speech, Normal strength at 5/5 x4 extr, Normal tone, Sensation intact, Cranial nerves 3-12 intact, Normal affect Lymphatics: No axilla or inguinal lymphadenopathy - Studies Laboratory Data (last 24 hrs) 11/09/19 20:35: PT 13.4 H, INR 1.14 11/09/19 20:35: WBC 4.1 L, Hgb 11.0 L, Hct 32.3 L, Plt Count 129 L 11/09/19 20:35: Sodium 135 L, Potassium 3.7, BUN 14, Creatinine 1.06, Glucose 214 H, Magnesium 1.9, Total Bilirubin 0.4, AST 18, ALT 23, Alkaline Phosphatase 52 Microbiology Data (last 24 hrs): 11/09/19 19:45 Nasopharnyx Influenza Type A Antigen Screen - Final 11/09/19 19:45 Nasopharnyx Influenza Type B Antigen Screen - Final 11/09/19 19:45 Throat Group A Streptococcus Rapid Screen - Final Assessment & Plan - Problems (Diagnosis) (1) Upper respiratory infection Current Visit: Yes Status: Acute (2) Pneumonia Current Visit: Yes Status: Acute (3) CVA (cerebral vascular accident) Onset Date: 10/23/18 Current Visit: No Status: Acute (4) DM2 (diabetes mellitus, type 2) Onset Date: 10/23/18 Current Visit: No Status: Acute (5) HTN (hypertension) Onset Date: 10/23/18 Current Visit: No Status: Acute (6) Near syncope Onset Date: 10/23/18 Current Visit: No Status: Acute - Plan 1. Continue with IV antibiotics 2. Awaiting sputum and blood culture 3. Continue with nebs as needed 4. Continue with gentle hydration 5. Serial troponins and EKG 6. IV morphine for pain 7. Repeat labs including CBC and renal function in a.m. 8. GI and DVT prophylaxis Discharge Plan: Home Plan to discharge in: 24 Hours - Advance Directives Does patient have a Living Will: Yes Does patient have a Durable POA for Healthcare: Yes - Code Status/Comfort Care Code Status Assessed: Yes Code Status: Full Code Critical Care: No Time Spent Managing PTS Care (In Minutes): 45 Home Medications: Atorvastatin Calcium [Lipitor] 40 mg PO BEDTIME 10/06/19 Buspirone HCl [Buspar] 10 mg PO BID 10/06/19 Clopidogrel Bisulfate [Plavix*] 75 mg PO DAILY 10/06/19 Cyanocobalamin (Vitamin B-12) [Vitamin B12] 1 tab PO DAILY 10/06/19 Doxazosin [Cardura*] 5 mg PO BID 10/06/19 Eplerenone 50 mg PO DAILY 10/06/19 Hydroxyzine HCl [Atarax] 25 mg PO PRN 10/06/19 Insulin Aspart [Novolog Flexpen] See Protocol SQ PRN 10/06/19 Insulin Degludec [Tresiba Flextouch U-100] 30 units SQ DAILY 10/06/19 Losartan Potassium [Cozaar*] 50 mg PO BID 10/06/19 Multivitamin [Daily Multiple Vitamin] 1 tab PO DAILY 10/06/19 Ubidecarenone [Co Q-10] 200 mg PO DAILY 10/06/19 Valproic Acid 250 mg PO DAILY 10/06/19 carvediloL [Carvedilol] 25 mg PO BID 10/06/19 hydroCHLOROthiazide [Hydrodiuril*] 25 mg PO DAILY 10/06/19 Patient Discharge Instructions: OK TO DC IV AND DC HOME. FOLLOW-UP WITH PRIMARY CARE PROVIDER IN 1-2 WEEKS. FOLLOW-UP WITH CARDIOLOGY IN 1-2 WEEKS. RETURN TO THE ER IF SYMPTOMS WORSEN. CALL or TEXT DR. YOON AT [phone] IF ANY QUESTIONS REGARDING HOSPITAL STAY. PLEASE CALL THE FLOOR AT [phone] IF ANY MEDICATION OR NURSING QUESTIONS. Diet: ADA Activity: Fall precautions Time spent managing pt's care (in minutes): 45
[2019-11-10] MEDS: INSULIN -REGULAR HUMAN 50 UNIT/0.5 ML ML SQ SCH ×2 (08:31→11:40)
[2019-11-10] MEDS ORDERED: ENOXAPARIN 40 MG/0.4 ML SQ SCH (09:00)
[2019-11-10] MEDS ORDERED: HOME MED 1 EA UNK (Cyanocobalamin (Vitamin B-12) [Vitamin B12] 1 TAB) PO SCH (09:00)
[2019-11-10] MEDS ORDERED: DOXAZOSIN 2 MG TAB PO SCH (09:00)
[2019-11-10] MEDS ORDERED: VALPROIC ACID 250 MG PO SCH (09:00)
[2019-11-10] MEDS ORDERED: LOSARTAN POTASSIUM 50 MG TABLET PO SCH (09:00)
[2019-11-10] MEDS ORDERED: BUSPIRONE HCL 5 MG TABLET PO SCH (09:00)
[2019-11-10] MEDS ORDERED: CLOPIDOGREL 75 MG TABLET PO SCH (09:00)
[2019-11-10] MEDS ORDERED: EPLERENONE 50 MG PO SCH (09:00)
[2019-11-10] MEDS ORDERED: CEFTRIAXONE 1 GM/NS 50 ML 1 GM/50 ML BAG IV SCH (09:00)
[2019-11-10] MEDS ORDERED: VALPROIC ACID 250 MG/5 ML OSYR PO SCH (09:00)
[2019-11-10] MEDS ORDERED: carvediloL 25 MG TAB PO SCH (09:00)
[2019-11-10] MEDS ORDERED: INSULIN DEGLUDEC 30 UNIT SQ SCH (09:00)
[2019-11-10] MEDS ORDERED: INFLUENZA VACCINE (for 3y+) 0.5 ML DOSE IMVAC ONE (09:00)
[2019-11-10] MEDS ORDERED: POTASSIUM CL SA 10 MEQ TAB PO ONE (09:00)
[2019-11-10] MEDS ORDERED: hydroCHLOROthiazide 25 MG TAB PO SCH (09:00)
[2019-11-10] MEDS ORDERED: PNEUMOCOCCAL VACCINE 0.5 ML IMVAC ONE (09:00)
[2019-11-10 09:32] LABS: Hematocrit 31.2 % (39.6-49.0); MPV 8.9 fL (7.6-11.3); RBC Red Blood Cell Count 3.58 M/uL (4.33-5.43)
[2019-11-10 10:09] LABS: Blood Morphology Comment NOT SEEN (NOT SEEN); Platelet Estimate DECR
[2019-11-10 10:50] LABS: Albumin 2.7 g/dL (3.4-5.0); Bilirubin Total 0.3 mg/dL (0.2-1.0); Magnesium 1.9 mg/dL (1.8-2.4); Phosphorus 3.6 mg/dL (2.5-4.9); Protein, Total 5.7 g/dL (6.4-8.2)
[2019-11-10 12:28] VITALS: O2SAT 96
[2019-11-10 13:52] VITALS: BP 166/87; TEMP 98
[2019-11-10] MEDS ORDERED: AZITHROMYCIN IV 250 MG in NA CHLORIDE 0.9% 250 ML IVPB SCH ×2 (14:00→21:00)
--- NOTE | 2019-11-10 15:32 | EKG ---
Test Date: 2019-11-09 Test Time: 20:55:21 Inpatient Auditor: RICHARD MEASUREMENT RESULTS: Intervals: Rate: 80 UT: 178 QRSD: 98 QT: 376 QTc: 433 [place]: P: -35 UT: 178 QRS: -39 T: 35 INTERPRETIVE STATEMENTS: Unusual P axis, possible ectopic atrial rhythm Left axis deviation Incomplete right bundle branch block Abnormal ECG Compared to ECG 03/23/2019 04:20:32 Sinus rhythm no longer present T-wave abnormality no longer present Electronically Signed On 11-10-19 15:30:49 [employer] by Murray Pardo
[2019-11-10] MEDS ORDERED: ATORVASTATIN 40 MG TAB PO SCH (21:00)
[2019-11-10] MEDS ORDERED: CEFTRIAXONE/SWI 1gm 1 GM/10 ML SYR IV SCH (21:00)
[2019-11-10] MEDS ORDERED: METHYLPREDNISOLONE 125 MG INJ IV SCH (22:30)
== END 2019-11-10 14:00 | disposition home or self-care (01) ==
LOC: ER 19:30 → 2ND 11-10 00:09
PROVIDERS: ADMIT Hospitalist; ATTEND Hospitalist
DX: J18.9 Pneumonia, unspecified organism (principal); J06.9 Acute upper respiratory infection, unspecified; N40.0 Benign prostatic hyperplasia without lower urinary tract symptoms; I10 Essential (primary) hypertension; E11.9 Type 2 diabetes mellitus without complications; Z86.73 Personal history of transient ischemic attack (TIA), and cerebral infarction without residual deficits; Z87.891 Personal history of nicotine dependence; Z23 Encounter for immunization
CPT/HCPCS: 96365; 96367; 96361; 93005; 87040 ×2; 87070; 87088; 85025 ×2; 80048; 36415; 83735 ×2; 84100; 85610; 82947 ×2; 80076; 80164; 87081; 84484 ×3; 80053; 83880 ×2; 87804 ×2; 71046; 90471 ×2; 90670; 96375; 99285; Q2035; J0456; J1650; J0696 ×2; J7030 ×4; J2930 ×2; J1720; G0378 ×2; 81003; 81015; 87086

== ENCOUNTER 2025-02-20 08:58 | Emergency (ER) | payer OTHER ==
--- OUTSIDE RECORDS SUMMARY | 2025-02-20 09:02 | XMS REPORT | Continuity of Care Document ---
Author Name Unknown Address [address] [place] [address] [facility] Address [address] [facility] [place] [address] Care Team Providers Care Community Program Assistant Name Role Phone PCP, PATIENT DOES NOT HAVE A Primary Care Physic aleja Unavailable Sharif Sheehan Attending Clinician Unavailable AUBREY PEREZ Attending Clinician Unavailable Chase ORTIZ, Aubrey Attending Clinician [phone] Aubrey Perez MD Attending Clinician [phone] Doctor Unassigned, [place] Attending Clinician U navailable Miller_S_AH Attending Clinician Unavailable Sarita-Mbayo_A_AH Attending Clinician Unavailable Miller_S_AH Admitting Clinician Unavailable Sarita-Mbayo_A_AH Admitting Clinician Unavailable Payers Payer Name Policy Type Policy Number Effective Date Expirati on Date Source [employer] [place]MI[place] [id number] 2020 00:00:00 [employer] [place] (MEDICARE REPLACEMENT/ADVANT AGE - HMO) [id number] 2019 00:00:00 Problems Condition Name Condition Details Condition Category Status Onset Date Resolution Date Last Treatment Date Treating Clinician Comments Source Coronary artery disease involving [place] coronary artery of [place] heart without angina pectoris Coronary artery disease involving [place] coronary artery of [place] heart without angina pectoris Disease Active 12-16 00:00: 00 [facility] Leg edema Leg edema Disease Active 12-16 00:00: 00 [facility] Primary hypertensi on Primary hypertensi on Disease Active 12-16 00:00: 00 [facility] Hyperlipid emia, unspecifie d hyperlipid emia type Hyperlipid emia, unspecifie d hyperlipid emia type Disease Active 12-16 00:00: 00 [facility] Type 2 diabetes mellitus without complicati on, with long-term current use of insulin Type 2 diabetes mellitus without complicati on, with long-term current use of insulin Disease Active 12-16 00:00: 00 [facility] Obesity (BMI 30-39.9) Obesity (BMI 30-39.9) Disease Active 12-16 00:00: 00 [facility] History of arterial ischemic stroke History of arterial ischemic stroke Disease Active 12-16 00:00: 00 [facility] Coronary artery disease involving [place] coronary artery of [place] heart without angina pectoris Coronary artery disease involving [place] coronary artery of [place] heart without angina pectoris Disease Active 12-16 00:00: 00 [facility] Thrombocyt openic disorder Thrombocyt openic Disorder Problem Active 02-09 00:00: 00 [facility] Peripheral vascular disease Peripheral Vascular Disease Problem Active 02-09 00:00: 00 [facility] Type II diabetes mellitus uncontroll ed Type II Diabetes Mellitus Uncontroll ed Problem Active 03-13 00:00: 00 [facility] Moderate recurrent major depression Moderate Recurrent Major Depression Problem Active 03-13 00:00: 00 [facility] Essential hypertensi on Essential Hypertensi on Problem Active 03-13 00:00: 00 [facility] Hemiplegia and/or hemiparesi s following stroke Hemiplegia And/or Hemiparesi s Following Stroke Problem Active 03-13 00:00: 00 [facility] Hyperlipid emia due to type 2 diabetes mellitus Hyperlipid emia Due to Type 2 Diabetes Mellitus Problem Active 03-13 00:00: 00 [facility] Practic e No known active problems No known active problems Disease [facility] [id number] BPH without urinary obstructio n Problem [facility] [id number] Microscopi c hematuria Problem [facility] Allergies, Adverse Reactions, Alerts Allergy Name Allergy Type Status Severity Reaction(s) Onset Date Inactive Date Treating Clinician Comments Source NO KNOWN ALLERGIE S Drug Class Active [facility] Social History Social Habit Start Date Stop Date Quantity Comments [facility] of [facility] Use [facility] Sex Assigned At [facility] Alcoholic beverage intake 2024-12-17 00:00:00 2024-12-17 00:00:00 0 /d [facility] History of Social function 2024-12-17 00:00:00 2024-12-17 00:00:00 [facility] Alcohol intake 2023-12-16 00:00:00 2023-12-16 00:00:00 0 /d [facility] Exposure to SARS-CoV-2 (event) 2022-12-06 00:00:00 2022-12-16 13:55:[address] [facility] Smoking Status Start Date Stop Date Source Former Smoker [facility] Never smoked tobacco [facility] Medications Ordered Medication Name Filled Medication Name Start Date Stop Date Current Medication? Ordering Clinician Indication Dosage Frequency Signature (SIG) Comments Components Source atorvastati n (LIPITOR) 40 mg tablet 12-17 11:32: 46 Yes 40mg Take 1 tablet by mouth at bedtime. [facility] carvedilol (COREG) 25 mg tablet 12-17 11:32: 46 Yes 25mg Take 1 tablet by mouth in the morning and 1 tablet in the evening. Take with meals. [facility] losartan 50 mg tablet 12-17 11:32: 46 Yes 100mg Take 2 tablets by mouth in the morning and 2 tablets in the evening. [facility] cholecalcif alfredo, vitamin D3, 1,000 unit tablet 12-17 11:32: 46 Yes 1000U Take 1 tablet by mouth in the morning and 1 tablet in the evening. [facility] insulin aspart RAPID (NOVOLOG) 100 unit/mL injection 12-17 11:32: 46 Yes 3U inject 3-5 Units under the skin in the morning and 3-5 Units at noon and 3-5 Units in the evening. inject before meals. Indication s: Per sliding scale [facility] doxazosin mesylate (DOXAZOSIN ORAL) 12-17 11:32: 46 Yes 4mg Take 4 mg by mouth in the morning. [facility] busPIRone 15 mg tablet 12-17 11:32: 46 Yes 15mg Take 1 tablet by mouth in the morning and 1 tablet in the evening. [facility] clopidogreL 75 mg tablet 12-17 11:32: 46 Yes 75mg Take 1 tablet by mouth in the morning. [facility] eplerenone 50 mg tablet 12-17 11:32: 46 Yes 50mg Take 1 tablet by mouth in the morning. [facility] hydroCHLORO thiazide 25 mg tablet 12-17 11:32: 46 Yes 25mg Take 1 tablet by mouth in the morning. [facility] hydrOXYzine 25 mg tablet 12-17 11:32: 46 Yes 25mg Take 1 tablet by mouth every 6 (six) hours. [facility] pantoprazol e 40 mg EC tablet 12-17 11:32: 46 Yes 40mg Take 1 tablet by mouth in the morning. [facility] atorvastati n (LIPITOR) 40 mg tablet 12-16 13:15: 36 Yes 40mg Take 1 tablet by mouth at bedtime. [facility] carvedilol (COREG) 25 mg tablet 12-16 13:15: 36 Yes 25mg Take 1 tablet by mouth in the morning and 1 tablet in the evening. Take with meals. [facility] losartan 50 mg tablet 12-16 13:15: 36 Yes 100mg Take 2 tablets by mouth in the morning and 2 tablets in the evening. [facility] insulin degludec (TRESIBA U-100 INSULIN SC) 12-16 13:15: 36 Yes 40U inject 40 Units under the skin in the morning. [facility] busPIRone 15 mg tablet 12-16 13:15: 36 Yes 15mg Take 1 tablet by mouth in the morning and 1 tablet in the evening. [facility] clopidogreL 75 mg tablet 12-16 13:15: 36 Yes 75mg Take 1 tablet by mouth in the morning. [facility] eplerenone 50 mg tablet 12-16 13:15: 36 Yes 50mg Take 1 tablet by mouth in the morning. [facility] hydroCHLORO thiazide 25 mg tablet 12-16 13:15: 36 Yes 25mg Take 1 tablet by mouth in the morning. [facility] doxazosin mesylate (DOXAZOSIN ORAL) 12-16 13:15: 36 Yes 4mg Take 4 mg by mouth in the morning. [facility] hydrOXYzine 25 mg tablet 12-16 13:15: 36 Yes 25mg Take 1 tablet by mouth every 6 (six) hours. [facility] pantoprazol e 40 mg EC tablet 12-16 13:15: 36 Yes 40mg Take 1 tablet by mouth in the morning. [facility] aspirin 81 mg EC tablet 12-16 14:32: 09 12-16 00:00 :00 No 81mg Take 81 mg by mouth daily. [facility] amLODIPine (NORVASC) 10 mg tablet 12-16 14:24: 13 12-16 00:00 :00 No 10mg Take 10 mg by mouth daily. [facility] doxazosin mesylate (DOXAZOSIN ORAL) 12-16 14:23: 45 Yes 5mg Take 5 mg by mouth. [facility] insulin glargine (LANTUS U-100) 100 unit/mL injection 12-16 14:22: 22 12-16 00:00 :00 No 10U inject 10-13 Units under the skin 2 (two) times daily. [facility] spironolact one (SPIRONOLAC TONE) 25 mg tablet 12-16 14:22: 16 12-16 00:00 :00 No 25mg Take 25 mg by mouth daily. [facility] tamsulosin (FLOMAX) 0.4 mg 24 hr capsule 12-16 14:22: 13 12-16 00:00 :00 No .4mg Take 0.4 mg by mouth daily. [facility] atorvastati n (LIPITOR) 40 mg tablet 12-16 14:22: 10 Yes 40mg Take 40 mg by mouth at bedtime. [facility] carvedilol (COREG) 25 mg tablet 12-16 14:22: 10 Yes 25mg Take 25 mg by mouth 2 (two) times daily with meals. [facility] losartan 50 mg tablet 12-16 14:22: 10 Yes 100mg Take 100 mg by mouth in the morning and 100 mg in the evening. [facility] insulin aspart RAPID (NOVOLOG) 100 unit/mL injection 12-16 14:22: 10 Yes 3U inject 3-5 Units under the skin 3 (three) times daily before meals. Indication s: Per sliding scale [facility] insulin degludec (TRESIBA U-100 INSULIN SC) 12-16 14:22: 10 Yes 26U inject 26 Units under the skin daily. [facility] busPIRone 15 mg tablet 12-16 14:22: 10 Yes 15mg Take 15 mg by mouth in the morning and 15 mg in the evening. [facility] clopidogreL 75 mg tablet 12-16 14:22: 10 Yes 75mg Take 75 mg by mouth in the morning. [facility] eplerenone 50 mg tablet 12-16 14:22: 10 Yes 50mg Take 50 mg by mouth in the morning. [facility] hydroCHLORO thiazide 25 mg tablet 12-16 14:22: 10 Yes 25mg Take 25 mg by mouth in the morning. [facility] atorvastati n (LIPITOR) 40 mg tablet 03-17 15:41: 39 Yes 40mg Take 40 mg by mouth at bedtime. [facility] cholecalcif alfredo, vitamin D3, 1,000 unit tablet 03-17 15:41: 39 Yes 1000U Take 1,000 Units by mouth 2 (two) times daily. [facility] tamsulosin (FLOMAX) 0.4 mg 24 hr capsule 03-17 15:41: 39 Yes .4mg Take 0.4 mg by mouth daily. [facility] carvedilol (COREG) 25 mg tablet 03-17 15:41: 39 Yes 25mg Take 25 mg by mouth 2 (two) times daily with meals. [facility] losartan (COZAAR) 100 mg tablet 03-17 15:41: 39 Yes 100mg Take 100 mg by mouth daily. [facility] spironolact one (SPIRONOLAC TONE) 25 mg tablet 03-17 15:41: 39 Yes 25mg Take 25 mg by mouth daily. [facility] aspirin 81 mg EC tablet 03-17 15:41: 39 Yes 81mg Take 81 mg by mouth daily. [facility] insulin aspart RAPID (NOVOLOG) 100 unit/mL injection 03-17 15:41: 39 Yes 3U inject 3-5 Units under the skin 3 (three) times daily before meals. Indication s: Per sliding scale [facility] insulin glargine (LANTUS U-100) 100 unit/mL injection 03-17 15:41: 39 Yes 10U inject 10-13 Units under the skin 2 (two) times daily. [facility] amLODIPine (NORVASC) 10 mg tablet 03-17 15:41: 39 Yes 10mg Take 10 mg by mouth daily. [facility] Tresiba FlexTouch U-100 insulin 100 unit/mL (3 mL) subcutaneou s pen Inject 12 units by subcutaneou s route. Tresiba FlexTouch U-100 insulin 100 unit/mL (3 mL) subcutaneou s pen Inject 12 units by subcutaneou s route. No 12unit( s) Tresiba FlexTouch U-100 insulin 100 unit/mL (3 mL) subcutaneo us pen Inject 12 units by subcutaneo us route. [facility] valproic acid 250 mg capsule Take 1 capsule every 8 hours by oral route. valproic acid 250 mg capsule Take 1 capsule every 8 hours by oral route. No 1capsul e(s) Q8H valproic acid 250 mg capsule Take 1 capsule every 8 hours by oral route. [facility] albuterol sulfate 2.5 mg/3 mL (0.083 %) solution for nebulizatio n Inhale 3 mL 3 times a day by nebulizatio n route. albuterol sulfate 2.5 mg/3 mL (0.083 %) solution for nebulizatio n Inhale 3 mL 3 times a day by nebulizatio n route. No 3mL TID albuterol sulfate 2.5 mg/3 mL (0.083 %) solution for nebulizati on Inhale 3 mL 3 times a day by nebulizati on route. [facility] Doxazosin Mesylate ER 4 MG Doxazosin Mesylate ER 4 MG No 1{table t_with_ breakfa st} QD Doxazosin Mesylate ER 4 MG busPIRone HCl 15 MG busPIRone HCl 15 MG No 1{table t} BID busPIRone HCl 15 MG Clopidogrel Bisulfate 75 MG Clopidogrel Bisulfate 75 MG No 1{table t} QD Clopidogre l Bisulfate 75 MG Losartan Potassium 50 MG Losartan Potassium 50 MG No 1{table t} QD Losartan Potassium 50 MG Atorvastati n Calcium 40 MG Atorvastati n Calcium 40 MG No 1{table t} QD Atorvastat in Calcium 40 MG hydrOXYzine HCl 25 MG hydrOXYzine HCl 25 MG No 1{table t_as_ne eded} QD hydrOXYzin e HCl 25 MG Eplerenone 50 MG Eplerenone 50 MG No 1{table t} QD Eplerenone 50 MG hydroCHLORO thiazide 25 MG hydroCHLORO thiazide 25 MG No 1{table t_in_th e_morni ng} QD hydroCHLOR Othiazide 25 MG Carvedilol 25 MG Carvedilol 25 MG No 1{table t_with_ food} BID Carvedilol 25 MG Pantoprazol e Sodium 40 MG Pantoprazol e Sodium 40 MG No 1{table t} QD Pantoprazo le Sodium 40 MG CoQ-10 100 MG CoQ-10 100 MG No CoQ-10 100 MG B Complex - B Complex - No B Complex - atorvastati n 40 mg tablet Take 1 tablet every day by oral route. atorvastati n 40 mg tablet Take 1 tablet every day by oral route. No 1 Q1D atorvastat in 40 mg tablet Take 1 tablet every day by oral route. [facility] buspirone 15 mg tablet Take 1 tablet twice a day by oral route. buspirone 15 mg tablet Take 1 tablet twice a day by oral route. No 1 BID buspirone 15 mg tablet Take 1 tablet twice a day by oral route. [facility] carvedilol 25 mg tablet Take 1 tablet twice a day by oral route. carvedilol 25 mg tablet Take 1 tablet twice a day by oral route. No 1 BID carvedilol 25 mg tablet Take 1 tablet twice a day by oral route. [facility] clopidogrel 75 mg tablet Take 1 tablet every day by oral route. clopidogrel 75 mg tablet Take 1 tablet every day by oral route. No 1 Q1D clopidogre l 75 mg tablet Take 1 tablet every day by oral route. [facility] doxazosin 4 mg tablet Take 1 tablet every day by oral route. doxazosin 4 mg tablet Take 1 tablet every day by oral route. No 1 Q1D doxazosin 4 mg tablet Take 1 tablet every day by oral route. [facility] eplerenone 50 mg tablet Take 1 tablet every day by oral route. eplerenone 50 mg tablet Take 1 tablet every day by oral route. No 1 Q1D eplerenone 50 mg tablet Take 1 tablet every day by oral route. [facility] hydrochloro thiazide 25 mg tablet Take 1 tablet every day by oral route. hydrochloro thiazide 25 mg tablet Take 1 tablet every day by oral route. No 1 Q1D hydrochlor othiazide 25 mg tablet Take 1 tablet every day by oral route. [facility] losartan 50 mg tablet Take 1 tablet every day by oral route. losartan 50 mg tablet Take 1 tablet every day by oral route. No 1 Q1D losartan 50 mg tablet Take 1 tablet every day by oral route. [facility] Novolog Flexpen U-100 Insulin aspart 100 unit/mL (3 mL) subcutaneou s Inject 15 units twice a day by subcutaneou s route. Novolog Flexpen U-100 Insulin aspart 100 unit/mL (3 mL) subcutaneou s Inject 15 units twice a day by subcutaneou s route. No 15unit( s) BID Novolog Flexpen U-100 Insulin aspart 100 unit/mL (3 mL) subcutaneo us Inject 15 units twice a day by subcutaneo us route. [facility] e Immunizations Ordered Immunization Name Filled Immunization Name Date Status Comments Source Influenza High Dose Quad 2024-09-21 00:00:[address] [facility] SARS-COV-2 COVID-19 PFIZER VACCINE 2021-02-02 00:00:[address] [facility] SARS-COV-2 COVID-19 PFIZER VACCINE 2021-02-02 00:00:[address] [facility] SARS-COV-2 COVID-19 PFIZER VACCINE 2021-02-02 00:00:[address] [facility] SARS-COV-2 COVID-19 PFIZER VACCINE 2021-01-12 00:00:[address] [facility] SARS-COV-2 COVID-19 PFIZER VACCINE 2021-01-12 00:00:[address] [facility] SARS-COV-2 COVID-19 PFIZER VACCINE 2021-01-12 00:00:[address] [facility] influenza, injectable, quadrivalent influenza, injectable, quadrivalent 2018-11-21 00:00:00 Completed [facility] SARS-COV-2 COVID-19 PFIZER VACCINE Unknown Completed [facility] SARS-COV-2 COVID-19 [address] VACC[address] Unknown Completed [facility] Vital Signs Vital Name Observation Time Observation Value Comments S maryan Systolic blood pressure 2024-12-17 17:14:00 122 mm[Hg] [facility] Diastolic blood pressure 2024-12-17 17:14:00 70 mm[Hg] [facility] Heart rate 2024-12-17 17:14:00 66 /min [facility] Respiratory rate 2024-12-17 17:14:00 18 /min [facility] Body height 2024-12-17 17:14:00 175.3 cm [facility] Body weight 2024-12-17 17:14:00 98.022 kg [facility] BMI 2024-12-17 17:14:00 31.91 kg/m2 [facility] Oxygen saturation in Arterial blood by Pulse oximetry 2024-12-17 17:14:00 98 /min [facility] height 2024-08-16 10:15:00 69 [in_i] Commo n [facility] weight 2024-08-16 10:15:00 210.8 [lb_av] Co mmon [facility] temperature 2024-08-16 10:15:00 98.4 [degF] Com mon [facility] bmi 2024-08-16 10:15:00 31.13 kg/m2 Comm on [facility] oximetry 2024-08-16 10:15:00 93 % Commo n [facility] blood pressure systolic 2024-08-16 10:15:00 125 mm[Hg] [facility] blood pressure diastolic 2024-08-16 10:15:00 54 mm[Hg] [facility] height 2024-02-16 11:15:00 69 [in_i] Commo n [facility] weight 2024-02-16 11:15:00 215.6 [lb_av] Co mmon [facility] temperature 2024-02-16 11:15:00 98.3 [degF] Com mon [facility] bmi 2024-02-16 11:15:00 31.84 kg/m2 Comm on [facility] oximetry 2024-02-16 11:15:00 100 % Commo n [facility] respiratory rate 2024-02-16 11:15:00 18 /min Common [facility] blood pressure systolic 2024-02-16 11:15:00 118 mm[Hg] [facility] blood pressure diastolic 2024-02-16 11:15:00 60 mm[Hg] Common [facility] height 2024-01-18 17:15:00 69 [in_i] Commo n [facility] weight 2024-01-18 17:15:00 214.6 [lb_av] Co mmon [facility] temperature 2024-01-18 17:15:00 97.9 [degF] Com mon [facility] bmi 2024-01-18 17:15:00 31.69 kg/m2 Comm on [facility] oximetry 2024-01-18 17:15:00 96 % Commo n [facility] respiratory rate 2024-01-18 17:15:00 18 /min [facility] blood pressure systolic 2024-01-18 17:15:00 145 mm[Hg] [facility] blood pressure diastolic 2024-01-18 17:15:00 69 mm[Hg] [facility] Systolic blood pressure 2023-12-16 18:59:00 123 mm[Hg] [facility] Diastolic blood pressure 2023-12-16 18:59:00 68 mm[Hg] [facility] Heart rate 2023-12-16 18:59:00 61 /min [facility] 2023-12-16 18:59:00 17 /min [facility] Body height 2023-12-16 18:59:00 167.6 cm [facility] Body weight 2023-12-16 18:59:00 98.022 kg [facility] BMI 2023-12-16 18:59:00 34.88 kg/m2 [facility] Oxygen saturation in Arterial blood by Pulse oximetry 2023-12-16 18:59:00 98 /min [facility] Systolic blood pressure 2022-12-16 20:26:00 142 mm[Hg] [facility] Diastolic blood pressure 2022-12-16 20:26:00 76 mm[Hg] [facility] Heart rate 2022-12-16 20:26:00 58 /min [facility] Respiratory rate 2022-12-16 20:12:00 19 /min [facility] Body height 2022-12-16 20:12:00 175.3 cm [facility] Body weight 2022-12-16 20:12:00 99.791 kg [facility] BMI 2022-12-16 20:12:00 32.49 kg/m2 [facility] Oxygen saturation in Arterial blood by Pulse oximetry 2022-12-16 20:12:00 99 /min [facility] BP Diastolic 2021-02-09 00:00:00 75 mm[Hg] [facility] Height 2021-02-09 00:00:00 68 [in_i] [facility] BMI (Body Mass Index) 2021-02-09 00:00:00 31.8 kg/m2 [facility] BP Systolic 2021-02-09 00:00:00 134 mm[Hg] [facility] Body Weight 2021-02-09 00:00:00 209 [lb_av] [facility] Height 2020-03-18 00:00:00 68 [in_i] [facility] BMI (Body Mass Index) 2020-03-18 00:00:00 30.4 kg/m2 [facility] Body Weight 2020-03-18 00:00:00 200 [lb_av] [facility] Procedures Procedure Date / Time Performed Performing Clinicia n Source HB ECG ROUTINE & RHYTHM STRIP 2023-12-16 19:04:[address] [facility] ASSIGNMENT OF BENEFITS 2023-12-16 18:44:17 Docto r Unassigned, [place] [facility] ASSIGNMENT OF BENEFITS 2022-12-16 19:57:51 Docto r Unassigned, [place] [facility] Encounters Start Date/Time End Date/Time Encounter Type Admission Type Attending [facility] Facility Care Department Encounter ID Source 2024-04-05 13:40:01 [facility] [id number] [facility] 2024-01-18 16:08:01 Outpatient Sharif Sheehan [facility] [id number] [facility] 2024-12-17 11:00:00 2024-12-17 11:48:13 [facility] [id number] 2024-12-17 11:00:00 2024-12-17 11:48:13 Office Visit Chase [facility] 1..[id number] [facility] 2024-08-16 00:00:00 2024-08-16 00:00:00 (PROC) Procedure [facility] [id number] [facility] 2024-02-16 00:00:00 2024-02-16 00:00:00 OFFICE VISIT ESTAB PT LEVEL 2 [facility] [id number] [facility] 2024-01-18 00:00:00 2024-01-18 00:00:00 OFFICE VISIT NEW PT LEVEL 3 [facility] [id number] [facility] 2023-12-16 13:20:00 2023-12-16 13:35:02 Office Visit Chase [facility] 1..[id number] [facility] 2023-12-16 13:20:00 2023-12-16 13:35:02 [facility] [id number] [facility] 2023-12-16 00:00:00 2023-12-16 00:00:00 Orders Only Doctor Unassigned, [place] [facility] 1..[id number] [facility] 2022-12-16 14:00:00 2022-12-16 14:51:39 [facility] [id number] 2022-12-16 14:00:00 2022-12-16 14:51:39 [facility] 1..840.114 [id number] [facility] 2022-12-16 00:00:00 2022-12-16 00:00:00 Orders Only Doctor Unassigned, [place] [facility] 1..840.114 [id number] [facility] 2021-05-07 02:55:00 2021-05-07 02:55:00 Outpatient Miller_S_AH VFP VFP [id number] [facility] 2021-03-06 07:10:00 2021-03-06 07:10:00 Outpatient Sarita-Mbayo _A_AH VFP VFP [id number] [facility] 2021-02-11 12:26:00 2021-02-11 12:26:00 Outpatient Sarita-Mbayo _A_AH VFP VFP [id number] [facility] 2021-02-09 01:58:00 2021-02-09 01:58:00 Outpatient Sarita-Mbayo _A_AH VFP VFP [id number] [facility] 2021-02-09 00:00:00 2021-02-09 00:00:00 Yvonne maciel, SURVEY RESEARCH ANALYST: [address], [address], [place] [address] , Ph. VFP [place] - [facility] - _HOU_V@_ [place] [facility] [id number] [facility] 2020-03-27 05:58:00 2020-03-27 05:58:00 Outpatient Sarita-Mbayo _A_AH VFP VFP [id number] [facility] 2020-03-24 11:41:00 2020-03-24 11:41:00 Outpatient Sarita-Mbayo _A_AH VFP VFP [id number] [facility] 2020-03-18 00:00:00 2020-03-18 00:00:00 Yvonne maciel, SURVEY RESEARCH ANALYST: [address] [facility], [address], [place] [address] , Ph. VFP [place] - [facility] - _HOU_V@_ [place] [facility] [id number] [facility] 2020-02-13 02:40:00 2020-02-13 02:40:00 Outpatient Sarita-Mbayo _A_AH VFP VFP [id number] [facility]
[2025-02-20 09:37] LABS: Influenza A Ag Negative; Influenza B Ag Negative
[2025-02-20 09:39] LABS: SARS-CoV-2 Antigen Rapid Res Positive (Negative)
--- NOTE | 2025-02-20 11:16 | RAD REPORT ---
EXAM: Chest Single View HISTORY: 74 years Male COUGH COMPARISON: 05/29/2020 FINDINGS: LUNGS/PLEURA: The lungs are clear. No pleural effusions or pneumothorax. No pulmonary edema. CARDIAC/MEDIASTINUM: The cardiac silhouette is within normal limits. UPPER ABDOMEN: No significant abnormality. BONES: No acute abnormality. LINES/TUBES/OTHER: N/A IMPRESSION: No evidence of acute cardiopulmonary disease.
--- NOTE | 2025-02-20 11:28 | ER ---
Nurse's Notes [facility] Name: Toney Jenkins Age: 74 yrs Sex: Male : 1950 Arrival Date: 02/20/2025 Time: 08:58 Bed 5 Private MD: Sharif Sheehan Diagnosis: SARS-associated coronavirus as the cause of diseases classified elsewhere Presentation: 02/20 09:07 Chief complaint: Patient states: Cough, fever, HANKINS, runny nose since Tuesday. had ll1 covid this past weekend. Coronavirus screen: Client denies travel out of the [place] in the last 14 days. At this time, the client does not indicate any symptoms associated with coronavirus-19. Ebola Screen: Patient denies travel to an Ebola-affected area in the 21 days before illness onset. Initial Sepsis Screen: Does the patient meet any 2 criteria? No. Patient's initial sepsis screen is negative. Does the patient have a suspected source of infection? No. Patient's initial sepsis screen is negative. Risk Assessment: Do you want to hurt yourself or someone else? Patient reports no desire to harm self or others. Onset of symptoms was February 18, 2025. 09:07 Method Of Arrival: Ambulatory ll1 09:07 Acuity: DANII 3 ll1 Triage Assessment: 09:08 General: Appears uncomfortable, Behavior is calm, cooperative, appropriate for age. ll1 General: Reports fever for feeling ill for fatigue for. Neuro: Reports headache weakness. Respiratory: Reports cough that is. Historical: - Allergies: 09:07 No Known Allergies; ll1 - Home Meds: 09:07 Tresiba FlexTouch U-200 200 unit/mL (3 mL) subcutaneous Insulin Pen 30 units daily cm10 [Active]; atorvastatin 40 mg Oral tab 1 tab once daily [Active]; buspirone 15 mg oral tablet [Active]; carvedilol 25 mg Oral tab 1 tab 2 times per day [Active]; clopidogrel 75 mg Oral tab 1 tab once daily [Active]; eplerenone 50 mg Oral tab 1 tab once daily [Active]; hydrochlorothiazide 25 mg Oral tab 1 tab once daily [Active]; losartan 50 mg oral tablet 1 tab 2 times per day [Active]; doxazosin 4 mg oral tablet daily [Active]; hydroxyzine HCl 25 mg Oral tab 1 tab daily [Active]; pantoprazole 40 mg oral tablet, delayed release (enteric coated) [Active]; - PMHx: 09:07 Anemia; Anxiety; BPH; CVA; Diabetes - IDDM; Hypertension; ll1 - Immunization history:: Adult Immunizations up to date. - Infectious Disease History:: Denies. - Social history:: Smoking status: Patient denies any tobacco usage or history of. - Family history:: not pertinent. - Hospitalizations: : No recent hospitalization is reported. Screenin:00 [facility] ED Fall Risk Assessment (Adult) History of falling in the last 3 months, ld1 including since admission No falls in past 3 months (0 pts) Confusion or Disorientation No (0 pts) Intoxicated or Sedated No (0 pts) Impaired Gait No (0 pts) Mobility Assist Device Used No (0 pt) Altered Elimination No (0 pt) Score/Fall Risk Level 0 - 2 = Low Risk Oriented to surroundings, Hourly rounding (assess needs \T\ fall precautionary measures) done. Abuse screen: Denies threats or abuse. Denies injuries from another. Nutritional screening: No deficits noted. Tuberculosis screening: No symptoms or risk factors identified. Assessment: 11:00 General: Appears in no apparent distress. comfortable, Behavior is calm, cooperative, ld1 appropriate for age. Pain: Denies pain. Neuro: Level of Consciousness is awake, alert, obeys commands, Oriented to person, place, time, situation. Cardiovascular: Capillary refill < 3 seconds Patient's skin is warm and dry. 11:00 Respiratory: Airway is patent Respiratory effort is even, unlabored. Respiratory: ld1 Reports shortness of breath at rest on exertion cough that is productive, GI: Abdomen is flat, non-distended. : No signs and/or symptoms were reported regarding the genitourinary system. EENT: No signs and/or symptoms were reported regarding the EENT system. Derm: No signs and/or symptoms reported regarding the dermatologic system. Musculoskeletal: No signs and/or symptoms reported regarding the musculoskeletal system. Vital Signs: 09:07 BP 157 / 82; Pulse 74; Resp 18; Temp 99.5; Pulse Ox 98% on R/A; Weight 95.25 kg; Height ll1 5 ft. 6 in. ; 11:10 BP 156 / 78; Pulse 66; Resp 18; Pulse Ox 97% on R/A; ld1 09:07 Body Mass Index 33.89 (95.25 kg, 167.64 cm) ll1 ED Course: 09:00 Patient arrived in ED. as 09:00 Sharif Sheehan DO is Private Physician. as 09:00 Jamie Pollack MD is Attending Physician. rn 09:07 Hanny Borden, RADHA is Primary Nurse. cm10 09:07 Arm band placed on Patient placed in an exam room, on a stretcher. ll1 09:08 Triage completed. ll1 10:31 XRAY Chest (1 view) In Process Unspecified. EDMS 11:00 Patient has correct armband on for positive identification. Placed in gown. Bed in low ld1 position. Call light in reach. Side rails up X2. Pulse ox on. NIBP on. Door closed. Noise minimized. Warm blanket given. 11:00 No provider procedures requiring assistance completed. Patient did not have IV access ld1 during this emergency room visit. Administered Medications: No medications were administered Medication: 11:00 VIS not applicable for this client. ld1 Outcome: 11:00 Discharged to home ambulatory, with family, ld1 11:00 Condition: stable 11:00 Discharge instructions given to patient, Instructed on discharge instructions, follow up and referral plans. medication usage, Demonstrated understanding of instructions, follow-up care, medications, Prescriptions given X 1, 11:28 Discharge ordered by . rn 11:44 Patient left the ED. ld1 Signatures: Dispatcher [employer] EDWI Lisa Borden Roman, MD MD rn Lewis, Lynsay, RN RN ll1 Shira Ponce RN RN ld1 Hanny Borden RN RN cm10
--- NOTE | 2025-02-20 11:28 | EDPHYS ---
Physician Documentation [facility] Name: Toney Jenkins Age: 74 yrs Sex: Male : 1950 Arrival Date: 02/20/2025 Time: 08:58 Bed 5 Private MD: Sharif Sheehan ED Physician Jamie Pollack HPI: 02/20 09:41 This 74 yrs old Male presents to ER via Ambulatory with complaints of Cough, Fever. rn 09:41 The patient or guardian reports cough, flu symptoms. Onset: The symptoms/episode rn began/occurred 2 day(s) ago. Severity of symptoms: At their worst the symptoms were mild, in the emergency department the symptoms are unchanged. Modifying factors: The symptoms are alleviated by nothing, the symptoms are aggravated by nothing. Associated signs and symptoms: Pertinent positives: fever, Pertinent negatives: chest pain. Associated signs and symptoms: Pertinent positives: rhinorrhea. The patient has not experienced similar symptoms in the past. Patient reports 2 days of cough and upper respiratory symptoms. Denies shortness of breath. Non-smoker. No chronic lung problems. diagnosed with COVID 2 days ago.. Historical: - Allergies: 09:07 No Known Allergies; ll1 - Home Meds: 09:07 Tresiba FlexTouch U-200 200 unit/mL (3 mL) subcutaneous Insulin Pen 30 units daily cm10 [Active]; atorvastatin 40 mg Oral tab 1 tab once daily [Active]; buspirone 15 mg oral tablet [Active]; carvedilol 25 mg Oral tab 1 tab 2 times per day [Active]; clopidogrel 75 mg Oral tab 1 tab once daily [Active]; eplerenone 50 mg Oral tab 1 tab once daily [Active]; hydrochlorothiazide 25 mg Oral tab 1 tab once daily [Active]; losartan 50 mg oral tablet 1 tab 2 times per day [Active]; doxazosin 4 mg oral tablet daily [Active]; hydroxyzine HCl 25 mg Oral tab 1 tab daily [Active]; pantoprazole 40 mg oral tablet, delayed release (enteric coated) [Active]; - PMHx: 09:07 Anemia; Anxiety; BPH; CVA; Diabetes - IDDM; Hypertension; ll1 - Immunization history:: Adult Immunizations up to date. - Infectious Disease History:: Denies. - Social history:: Smoking status: Patient denies any tobacco usage or history of. - Family history:: not pertinent. - Hospitalizations: : No recent hospitalization is reported. ROS: 09:41 Constitutional: Positive for chills and fever ENT: Positive for runny nose and sore rn throat Cardiovascular: Negative for chest pain, palpitations, and edema, Respiratory: Positive for cough, negative for shortness of breath Abdomen/GI: Negative for abdominal pain, nausea, vomiting, diarrhea, and constipation, MS/Extremity: Negative for injury and deformity, Neuro: Positive for generalized weakness Exam: 09:41 Constitutional: This is a well developed, well nourished patient who is awake, alert, rn and in no acute distress. ENT: Dry mucous membranes, no stridor Cardiovascular: Regular rate and rhythm. No pulse deficits. Respiratory: No increased work of breathing, no retractions or nasal flaring. Skin: No cyanosis or lesions Neuro: Awake and alert, GCS 15 Vital Signs: 09:07 BP 157 / 82; Pulse 74; Resp 18; Temp 99.5; Pulse Ox 98% on R/A; Weight 95.25 kg; Height ll1 5 ft. 6 in. ; 11:10 BP 156 / 78; Pulse 66; Resp 18; Pulse Ox 97% on R/A; ld1 09:07 Body Mass Index 33.89 (95.25 kg, 167.64 cm) ll1 MDM: 09:00 Medical Screening Exam initiated rn 10:24 ED course: Discussed case with patient and spouse, their insurance does not cover a lot rn of the $2000 Paxlovid prescription, patient on a statin and blood thinner as well. After discussion joint decision made that not to prescribe or take Paxlovid. Will take symptomatic medication such as cough medication and [id number] medication and follow-up with PCP. Return precautions given and understood.. 11:27 Differential Diagnosis: Bronchitis Influenza Upper Respiratory Infection Viral Syndrome rn Pneumonia. Data reviewed: vital signs, nurses notes, lab test result(s), radiologic studies, plain films, and as a result, I will discharge patient. Counseling: I had a detailed discussion with the patient and/or guardian regarding the historical points, exam findings, and any diagnostic results supporting the discharge/admit diagnosis, lab results, radiology results, the need for outpatient follow up, to return to the emergency department if symptoms worsen or persist or if there are any questions or concerns that arise at home. Special discussion: I discussed with the patient/guardian in detail that at this point there is no indication for admission to the hospital. It is understood, however, that if the symptoms persist or worsen the patient needs to return immediately for re-evaluation. 02/20 09:07 Order name: COVID-19 Ag + Flu A+B Ag; Complete Time: 09:47 rn 02/20 09:07 Order name: XRAY Chest (1 view); Complete Time: 11:27 rn Administered Medications: No medications were administered Disposition Summary: 02/20/25 11:28 Discharge Ordered Notes: Location: Home rn Problem: new rn Symptoms: have improved rn Condition: Stable rn Diagnosis - SARS-associated coronavirus as the cause of diseases classified elsewhere rn Followup: rn - With: Private Physician - When: As needed - Reason: Recheck today's complaints, Re-evaluation by your physician Discharge Instructions: - Discharge Summary Sheet rn - COVID-19 rn - 10 Things You Can Do to Manage Your COVID-19 Symptoms at Home - [facility] (06/05/2021) rn - Viral Illness, Adult rn Forms: - Medication Reconciliation Form rn - Antibiotic rn telephonic - Prescription Opioid Use rn - Patient Portal Instructions rn - Leadership Thank You Letter rn Prescriptions: - ondansetron 4 mg Oral Tablet,disintegrating - take 1 tablet ORAL route every 8 hours As needed as needed for nausea and rn vomiting; 12 tablet; Refills: 0, Product Selection Permitted - Guaifenesin AC 10-100 mg/5 mL Oral Liquid - take 10 milliliters ORAL route every 4 hours As needed; 240 milliliter; rn Refills: 0, Product Selection Permitted Signatures: Dispatcher [employer] Jamie Ortiz MD MD rn Lewis, Lynsay RN RN ll1 Shira Ponce RN RN ld1 Hanny Borden RN RN cm10
[2025-02-20 11:52] VITALS: TEMP 99.5
[2025-02-20 11:54] VITALS: BP 156/78; O2SAT 97
== END 2025-02-20 11:44 | disposition home or self-care (01) ==
LOC: ER 08:58 → EEVIPCON 08:58 → ER 11:44
DX: U07.1 COVID-19 (principal); I10 Essential (primary) hypertension; E11.9 Type 2 diabetes mellitus without complications; Z79.4 Long term (current) use of insulin; Z86.73 Personal history of transient ischemic attack (TIA), and cerebral infarction without residual deficits
CPT/HCPCS: 36415; 71045; 87428

== ENCOUNTER 2025-02-20 15:11 | Emergency (ER) | payer OTHER ==
--- OUTSIDE RECORDS SUMMARY | 2025-02-20 15:15 | XMS REPORT | Continuity of Care Document ---
Author Name Unknown Address [address] [place] [address] [facility] Address [address] [place] [address] Care Team Providers Care Coffee Supervisor Name Role Phone PCP, PATIENT DOES NOT HAVE A Primary Care Physic aleja Unavailable Sharif Sheehan Attending Clinician Unavailable AUBREY PEREZ Attending Clinician Unavailable Chase ORTIZ, Aubrey Attending Clinician [phone] Aubrey Perez MD Attending Clinician [phone] Doctor Unassigned, Burnett Attending Clinician U navailable Miller_S_AH Attending Clinician Unavailable Sarita-Mbayo_A_AH Attending Clinician Unavailable Miller_S_AH Admitting Clinician Unavailable Sarita-Mbayo_A_AH Admitting Clinician Unavailable Payers Payer Name Policy Type Policy Number Effective Date Expirati on Date Source [place] [place] CLASS[place] PREMIUM HMO [id number] 2020 00:00:00 [employer] [place] (MEDICARE REPLACEMENT/ADVANT AGE - HMO) [id number] 2019 00:00:00 Problems Condition Name Condition Details Condition Category Status Onset Date Resolution Date Last Treatment Date Treating Clinician Comments Source Coronary artery disease involving oneida coronary artery of oneida heart without angina pectoris Coronary artery disease involving oneida coronary artery of oneida heart without angina pectoris Disease Active 12-16 00:00: 00 [facility] Leg edema Leg edema Disease Active 12-16 00:00: 00 [facility] Primary hypertensi on Primary hypertensi on Disease Active 12-16 00:00: 00 [facility] Hyperlipid emia, unspecifie d hyperlipid emia type Hyperlipid emia, unspecifie d hyperlipid emia type Disease Active 12-16 00:00: 00 [facility] Type 2 diabetes mellitus without complicati on, with long-term current use of insulin Type 2 diabetes mellitus without complicati on, with long-term current use of insulin Disease Active 12-16 00:00: 00 [facility] Obesity (BMI 30-39.9) Obesity (BMI 30-39.9) Disease Active 12-16 00:00: 00 [facility] History of arterial ischemic stroke History of arterial ischemic stroke Disease Active 12-16 00:00: 00 [facility] Coronary artery disease involving oneida coronary artery of oneida heart without angina pectoris Coronary artery disease involving oneida coronary artery of oneida heart without angina pectoris Disease Active 12-16 00:00: 00 [facility] Thrombocyt openic disorder Thrombocyt openic Disorder Problem Active 02-09 00:00: 00 [facility] Peripheral vascular disease [...] Diabetes Mellitus Problem Active 03-13 00:00: 00 [facility] Practic e No known active problems No known active problems Disease [facility] [id number] BPH without urinary obstructio n Problem [facility] [id number] Microscopi c hematuria Problem [facility] Allergies, Adverse Reactions, Alerts Allergy Name Allergy Type Status Severity Reaction(s) Onset Date Inactive Date Treating Clinician Comments Source NO KNOWN ALLERGIE S Drug Class Active [facility] Social History Social Habit Start Date Stop Date Quantity Comments Source [facility] of [facility] Sex Assigned At [facility] Alcoholic beverage intake 2024-12-17 00:00:00 2024-12-17 00:00:00 0 /d [facility] History of Social function 2024-12-17 00:00:00 2024-12-17 00:00:00 [facility] Alcohol intake 2023-12-16 00:00:00 2023-12-16 00:00:00 0 /d [facility] Exposure to SARS-CoV-2 (event) 2022-12-06 00:00:00 2022-12-16 13:55:00 Not sure [facility] Smoking Status Start Date Stop Date Source Former Smoker [facility] Never smoked tobacco [facility] Medications Ordered Medication Name Filled Medication Name Start Date Stop Date Current Medication? Ordering Clinician Indication Dosage Frequency Signature (SIG) Comments Components Source atorvastati n (LIPITOR) 40 mg tablet 12-17 11:32: 46 Yes 40mg Take 1 tablet by mouth at bedtime. [facility] carvedilol (COREG) 25 mg tablet 12-17 11:32: 46 Yes 25mg Take 1 tablet by mouth in the morning and 1 tablet in the evening. Take with meals. [facility] losartan 50 mg tablet 12-17 11:32: 46 Yes 100mg Take 2 tablets by mouth in the morning and 2 tablets in the evening. [facility] cholecalcif alfredo, vitamin D3, 1,000 unit tablet 12-17 11:32: 46 Yes 1000U Take 1 tablet by mouth in the morning and 1 tablet in the evening. [facility] insulin aspart RAPID (NOVOLOG) 100 unit/mL injection 12-17 11:32: 46 Yes 3U inject 3-5 Units under the skin in the morning and 3-5 Units at noon and 3-5 Units in the evening. inject before meals. Indication s: Per sliding scale [facility] doxazosin mesylate (DOXAZOSIN ORAL) 12-17 11:32: 46 Yes 4mg Take 4 mg by mouth in the morning. [facility] busPIRone 15 mg tablet 12-17 11:32: 46 Yes 15mg Take 1 tablet by mouth in the morning and 1 tablet in the evening. [facility] clopidogreL 75 mg tablet 12-17 11:32: 46 Yes 75mg Take 1 tablet by mouth in the morning. [facility] eplerenone 50 mg tablet 12-17 11:32: 46 Yes 50mg Take 1 tablet by mouth in the morning. [facility] hydroCHLORO thiazide 25 mg tablet 12-17 11:32: 46 Yes 25mg Take 1 tablet by mouth in the morning. [facility] hydrOXYzine 25 mg tablet 12-17 11:32: 46 Yes 25mg Take 1 tablet by mouth every 6 (six) hours. [facility] pantoprazol e 40 mg EC tablet 12-17 11:32: 46 Yes 40mg Take 1 tablet by mouth in the morning. [facility] atorvastati n (LIPITOR) 40 mg tablet 12-16 13:15: 36 Yes 40mg Take 1 tablet by mouth at bedtime. [facility] carvedilol (COREG) 25 mg tablet 12-16 13:15: 36 Yes 25mg Take 1 tablet by mouth in the morning and 1 tablet in the evening. Take with meals. [facility] losartan 50 mg tablet 12-16 13:15: 36 Yes 100mg Take 2 tablets by mouth in the morning and 2 tablets in the evening. [facility] insulin degludec (TRESIBA U-100 INSULIN SC) 12-16 13:15: 36 Yes 40U inject 40 Units under the skin in the morning. [facility] busPIRone 15 mg tablet 12-16 13:15: 36 Yes 15mg Take 1 tablet by mouth in the morning and 1 tablet in the evening. [facility] clopidogreL 75 mg tablet 12-16 13:15: 36 Yes 75mg Take 1 tablet by mouth in the morning. [facility] eplerenone 50 mg tablet 12-16 13:15: 36 Yes 50mg Take 1 tablet by mouth in the morning. [facility] hydroCHLORO thiazide 25 mg tablet 12-16 13:15: 36 Yes 25mg Take 1 tablet by mouth in the morning. [facility] doxazosin mesylate (DOXAZOSIN ORAL) 12-16 13:15: 36 Yes 4mg Take 4 mg by mouth in the morning. [facility] hydrOXYzine 25 mg tablet 12-16 13:15: 36 Yes 25mg Take 1 tablet by mouth every 6 (six) hours. [facility] pantoprazol e 40 mg EC tablet 12-16 13:15: 36 Yes 40mg Take 1 tablet by mouth in the morning. [facility] aspirin 81 mg EC tablet 12-16 14:32: 09 12-16 00:00 :00 No 81mg Take 81 mg by mouth daily. [facility] amLODIPine (NORVASC) 10 mg tablet 12-16 14:24: 13 12-16 00:00 :00 No 10mg Take 10 mg by mouth daily. [facility] doxazosin mesylate (DOXAZOSIN ORAL) 12-16 14:23: 45 Yes 5mg Take 5 mg by mouth. [facility] insulin glargine (LANTUS U-100) 100 unit/mL injection 12-16 14:22: 22 12-16 00:00 :00 No 10U inject 10-13 Units under the skin 2 (two) times daily. [facility] spironolact one (SPIRONOLAC TONE) 25 mg tablet 12-16 14:22: 16 12-16 00:00 :00 No 25mg Take 25 mg by mouth daily. [facility] tamsulosin (FLOMAX) 0.4 mg 24 hr capsule 12-16 14:22: 13 12-16 00:00 :00 No .4mg Take 0.4 mg by mouth daily. [facility] atorvastati n (LIPITOR) 40 mg tablet 12-16 14:22: 10 Yes 40mg Take 40 mg by mouth at bedtime. [facility] carvedilol (COREG) 25 mg tablet 12-16 14:22: 10 Yes 25mg Take 25 mg by mouth 2 (two) times daily with meals. [facility] losartan 50 mg tablet 12-16 14:22: 10 Yes 100mg Take 100 mg by mouth in the morning and 100 mg in the evening. [facility] insulin aspart RAPID (NOVOLOG) 100 unit/mL injection 12-16 14:22: 10 Yes 3U inject 3-5 Units under the skin 3 (three) times daily before meals. Indication s: Per sliding scale [facility] insulin degludec (TRESIBA U-100 INSULIN SC) 12-16 14:22: 10 Yes 26U inject 26 Units under the skin daily. [facility] busPIRone 15 mg tablet 12-16 14:22: 10 Yes 15mg Take 15 mg by mouth in the morning and 15 mg in the evening. [facility] clopidogreL 75 mg tablet 12-16 14:22: 10 Yes 75mg Take 75 mg by mouth in the morning. [facility] eplerenone 50 mg tablet 12-16 14:22: 10 Yes 50mg Take 50 mg by mouth in the morning. [facility] hydroCHLORO thiazide 25 mg tablet 12-16 14:22: 10 Yes 25mg Take 25 mg by mouth in the morning. [facility] atorvastati n (LIPITOR) 40 mg tablet 03-17 15:41: 39 Yes 40mg Take 40 mg by mouth at bedtime. [facility] cholecalcif alfredo, vitamin D3, 1,000 unit tablet 03-17 15:41: 39 Yes 1000U Take 1,000 Units by mouth 2 (two) times daily. [facility] tamsulosin (FLOMAX) 0.4 mg 24 hr capsule 03-17 15:41: 39 Yes .4mg Take 0.4 mg by mouth daily. [facility] carvedilol (COREG) 25 mg tablet 03-17 15:41: 39 Yes 25mg Take 25 mg by mouth 2 (two) times daily with meals. [facility] losartan (COZAAR) 100 mg tablet 03-17 15:41: 39 Yes 100mg Take 100 mg by mouth daily. [facility] spironolact one (SPIRONOLAC TONE) 25 mg tablet 03-17 15:41: 39 Yes 25mg Take 25 mg by mouth daily. [facility] aspirin 81 mg EC tablet 03-17 15:41: 39 Yes 81mg Take 81 mg by mouth daily. [facility] insulin aspart RAPID (NOVOLOG) 100 unit/mL injection 03-17 15:41: 39 Yes 3U inject 3-5 Units under the skin 3 (three) times daily before meals. Indication s: Per sliding scale [facility] insulin glargine (LANTUS U-100) 100 unit/mL injection 03-17 15:41: 39 Yes 10U inject 10-13 Units under the skin 2 (two) times daily. [facility] amLODIPine (NORVASC) 10 mg tablet 03-17 15:41: 39 Yes 10mg Take 10 mg by mouth daily. [facility] Doxazosin Mesylate ER 4 MG Doxazosin Mesylate [...] 1 tablet every day by oral route. [facility] buspirone 15 mg tablet Take 1 tablet twice a day by oral route. buspirone 15 mg tablet Take 1 tablet twice a day by oral route. No 1 BID buspirone 15 mg tablet Take 1 tablet twice a day by oral route. [facility] carvedilol 25 mg tablet Take 1 tablet twice a day by oral route. carvedilol 25 mg tablet Take 1 tablet twice a day by oral route. No 1 BID carvedilol 25 mg tablet Take 1 tablet twice a day by oral route. [facility] clopidogrel 75 mg tablet Take 1 tablet every day by oral route. clopidogrel 75 mg tablet Take 1 tablet every day by oral route. No 1 Q1D clopidogre l 75 mg tablet Take 1 tablet every day by oral route. [facility] doxazosin 4 mg tablet Take 1 tablet every day by oral route. doxazosin 4 mg tablet Take 1 tablet every day by oral route. No 1 Q1D doxazosin 4 mg tablet Take 1 tablet every day by oral route. [facility] eplerenone 50 mg tablet Take 1 tablet every day by oral route. eplerenone 50 mg tablet Take 1 tablet every day by oral route. No 1 Q1D eplerenone 50 mg tablet Take 1 tablet every day by oral route. [facility] hydrochloro thiazide 25 mg tablet Take 1 tablet every day by oral route. hydrochloro thiazide 25 mg tablet Take 1 tablet every day by oral route. No 1 Q1D hydrochlor othiazide 25 mg tablet Take 1 tablet every day by oral route. [facility] losartan 50 mg tablet Take 1 tablet every day by oral route. losartan 50 mg tablet Take 1 tablet every day by oral route. No 1 Q1D losartan 50 mg tablet Take 1 tablet every day by oral route. [facility] Novolog Flexpen U-100 Insulin aspart [...] twice a day by subcutaneo us route. [facility] Tresiba FlexTouch U-100 insulin 100 unit/mL (3 mL) subcutaneou s pen Inject 12 units by subcutaneou s route. Tresiba FlexTouch U-100 insulin 100 unit/mL (3 mL) subcutaneou s pen Inject 12 units by subcutaneou s route. No 12unit( s) Tresiba FlexTouch U-100 insulin 100 unit/mL (3 mL) subcutaneo us pen Inject 12 units by subcutaneo us route. [facility] valproic acid 250 mg capsule Take 1 capsule every 8 hours by oral route. valproic acid 250 mg capsule Take 1 capsule every 8 hours by oral route. No 1capsul e(s) Q8H valproic acid 250 mg capsule Take 1 capsule every 8 hours by oral route. [facility] e albuterol sulfate 2.5 mg/3 mL (0.083 [...] times a day by nebulizati on route. [facility] e Immunizations Ordered Immunization Name Filled Immunization Name Date Status Comments Source Influenza High Dose Quad 2024-09-21 00:00:00 Completed [facility] SARS-COV-2 COVID-19 PFIZER VACCINE 2021-02-02 00:00:00 Completed [facility] SARS-COV-2 COVID-19 PFIZER VACCINE 2021-02-02 00:00:00 Completed [facility] SARS-COV-2 COVID-19 PFIZER VACCINE 2021-02-02 00:00:00 Completed [facility] SARS-COV-2 COVID-19 PFIZER VACCINE 2021-01-12 00:00:00 Completed [facility] SARS-COV-2 COVID-19 PFIZER VACCINE 2021-01-12 00:00:00 Completed [facility] SARS-COV-2 COVID-19 PFIZER VACCINE 2021-01-12 00:00:00 Completed [facility] influenza, injectable, quadrivalent influenza, injectable, quadrivalent 2018-11-21 00:00:00 Completed [facility] SARS-COV-2 COVID-19 PFIZER VACCINE Unknown Completed [facility] SARS-COV-2 COVID-19 PFIZER VACCINE Unknown Completed [facility] Vital Signs Vital Name Observation Time Observation Value Comments S maryan Systolic blood pressure 2024-12-17 17:14:00 122 mm[Hg] [facility] Diastolic blood pressure 2024-12-17 17:14:00 70 mm[Hg] [facility] Heart rate 2024-12-17 17:14:00 66 /min [facility] Respiratory rate 2024-12-17 17:14:00 18 /min [facility] Body height 2024-12-17 17:14:00 175.3 cm [facility] Body weight 2024-12-17 17:14:00 98.022 kg [facility] BMI 2024-12-17 17:14:00 31.91 kg/m2 [facility] Oxygen saturation in Arterial blood by Pulse oximetry 2024-12-17 17:14:00 98 /min [facility] height 2024-08-16 10:15:00 69 [in_i] Commo n [facility] weight 2024-08-16 10:15:00 210.8 [lb_av] Co mmon [facility] temperature 2024-08-16 10:15:00 98.4 [degF] Com mon [facility] bmi 2024-08-16 10:15:00 31.13 kg/m2 Comm on [facility] oximetry 2024-08-16 10:15:00 93 % Commo n [facility] blood pressure systolic 2024-08-16 10:15:00 125 mm[Hg] [facility] blood pressure diastolic 2024-08-16 10:15:00 54 mm[Hg] [facility] height 2024-02-16 11:15:00 69 [in_i] Commo n [facility] weight 2024-02-16 11:15:00 215.6 [lb_av] Co mmon [facility] temperature 2024-02-16 11:15:00 98.3 [degF] Com mon [facility] bmi 2024-02-16 11:15:00 31.84 kg/m2 Comm on [facility] oximetry 2024-02-16 11:15:00 100 % Commo n [facility] respiratory rate 2024-02-16 11:15:00 18 /min Common [facility] blood pressure systolic 2024-02-16 11:15:00 118 mm[Hg] [facility] blood pressure diastolic 2024-02-16 11:15:00 60 mm[Hg] Common [facility] height 2024-01-18 17:15:00 69 [in_i] Commo n [facility] weight 2024-01-18 17:15:00 214.6 [lb_av] Co mmon [facility] temperature 2024-01-18 17:15:00 97.9 [degF] Com mon [facility] bmi 2024-01-18 17:15:00 31.69 kg/m2 Comm on [facility] oximetry 2024-01-18 17:15:00 96 % Commo n [facility] respiratory rate 2024-01-18 17:15:00 18 /min [facility] blood pressure systolic 2024-01-18 17:15:00 145 mm[Hg] [facility] blood pressure diastolic 2024-01-18 17:15:00 69 mm[Hg] [facility] Systolic blood pressure 2023-12-16 18:59:00 123 mm[Hg] [facility] Diastolic blood pressure 2023-12-16 18:59:00 68 mm[Hg] [facility] Heart rate 2023-12-16 18:59:00 61 /min [facility] 2023-12-16 18:59:00 17 /min [facility] Body height 2023-12-16 18:59:00 167.6 cm [facility] Body weight 2023-12-16 18:59:00 98.022 kg [facility] BMI 2023-12-16 18:59:00 34.88 kg/m2 [facility] Oxygen saturation in Arterial blood by Pulse oximetry 2023-12-16 18:59:00 98 /min [facility] Systolic blood pressure 2022-12-16 20:26:00 142 mm[Hg] [facility] Diastolic blood pressure 2022-12-16 20:26:00 76 mm[Hg] [facility] Heart rate 2022-12-16 20:26:00 58 /min [facility] Respiratory rate 2022-12-16 20:12:00 19 /min [facility] Body height 2022-12-16 20:12:00 175.3 cm [facility] Body weight 2022-12-16 20:12:00 99.791 kg [facility] BMI 2022-12-16 20:12:00 32.49 kg/m2 [facility] Oxygen saturation in Arterial blood by Pulse oximetry 2022-12-16 20:12:00 99 /min [facility] Height 2021-02-09 00:00:00 68 [in_i] [facility] BMI (Body Mass Index) 2021-02-09 00:00:00 31.8 kg/m2 [facility] BP Systolic 2021-02-09 00:00:00 134 mm[Hg] [facility] Body Weight 2021-02-09 00:00:00 209 [lb_av] [facility] BP Diastolic 2021-02-09 00:00:00 75 mm[Hg] [facility] Height 2020-03-18 00:00:00 68 [in_i] [facility] BMI (Body Mass Index) 2020-03-18 00:00:00 30.4 kg/m2 [facility] Body Weight 2020-03-18 00:00:00 200 [lb_av] [facility] Procedures Procedure Date / Time Performed Performing Clinicia n Source HB ECG ROUTINE & RHYTHM STRIP 2023-12-16 19:04:03 Aubrey Perez [facility] ASSIGNMENT OF BENEFITS 2023-12-16 18:44:17 Docto r Unassigned, Burnett [facility] ASSIGNMENT OF BENEFITS 2022-12-16 19:57:51 Docto r Unassigned, Burnett [facility] Encounters Start Date/Time End Date/Time Encounter Type Admission Type Attending Clinicians Care Facility Care Department Encounter ID Source 2024-04-05 13:40:01 Outpatient [facility] [id number] [facility] 2024-01-18 16:08:01 Outpatient Sharif Sheehan [facility] [id number] [facility] 2024-12-17 11:00:00 2024-12-17 11:48:13 [facility] [id number] [facility] 2024-12-17 11:00:00 2024-12-17 11:48:13 Office Visit Chase [facility] 1..840.114 [id number] [facility] 2024-08-16 00:00:00 2024-08-16 00:00:00 (PROC) Procedure [facility] [id number] [facility] 2024-02-16 00:00:00 2024-02-16 00:00:00 OFFICE VISIT ESTAB PT LEVEL 2 [facility] [id number] [facility] 2024-01-18 00:00:00 2024-01-18 00:00:00 OFFICE VISIT NEW PT LEVEL 3 [facility] [id number] [facility] 2023-12-16 13:20:00 2023-12-16 13:35:02 Office Visit Chase [facility] 1..840.114 [id number] [facility] 2023-12-16 13:20:00 2023-12-16 13:35:02 [facility] [id number] [facility] 2023-12-16 00:00:00 2023-12-16 00:00:00 Orders Only Doctor Unassigned, Burnett [facility] 1..840.114 350.1.13.10 [id number] [facility] 2022-12-16 14:00:00 2022-12-16 14:51:39 [facility] [id number] [facility] 2022-12-16 14:00:00 2022-12-16 14:51:39 [facility] 1..840.114 [id number] [id number] [facility] 2022-12-16 00:00:00 2022-12-16 00:00:00 Orders Only Doctor Unassigned, Burnett [facility] 1..840.114 350.1.13.10 [id number] [facility] 2021-05-07 02:55:00 2021-05-07 02:55:00 Outpatient Miller_S_AH VFP VFP [id number] [facility] 2021-03-06 07:10:00 2021-03-06 07:10:00 Outpatient Sarita-Mbayo _A_AH VFP VFP [id number] [facility] 2021-02-11 12:26:00 2021-02-11 12:26:00 Outpatient Sarita-Mbayo _A_AH VFP VFP [id number] [facility] 2021-02-09 01:58:00 2021-02-09 01:58:00 Outpatient Sarita-Mbayo _A_AH VFP VFP [id number] [facility] 2021-02-09 00:00:00 2021-02-09 00:00:00 Yvonne maciel, RESIDENTIAL PROGRAM COORDINATOR: [address], [address], [place] [address] , Ph. VFP [place] - [facility], [facility] - _HOU_V@_ [place] [employer] [id number] [facility] 2020-03-27 05:58:00 2020-03-27 05:58:00 Outpatient Sarita-Mbayo _A_AH VFP VFP [id number] [facility] 2020-03-24 11:41:00 2020-03-24 11:41:00 Outpatient Sarita-Mbayo _A_AH VFP VFP [id number] [facility] 2020-03-18 00:00:00 2020-03-18 00:00:00 Yvonne maciel, RESIDENTIAL PROGRAM COORDINATOR: [address] [facility], [address], [place] [address] , Ph. VFP [place] - [facility] - _HOU_V@_ [place] [employer] [id number] [facility] 2020-02-13 02:40:00 2020-02-13 02:40:00 Outpatient Sarita-Mbayo _A_AH VFP VFP [id number] [facility]
[2025-02-20] MEDS ORDERED: NA CHLORIDE 0.9% 500 ML ONE (16:20)
[2025-02-20 16:26] LABS: Absolute Lymphocytes (CBC) 0.6 K/uL (0.7-4.9); Absolute Monocytes 0.3 K/uL (0.1-1.3); Absolute Neutrophil 2.1 K/uL (1.8-8.0); Basophils % 0.6 % (0-1.3); Eosinophils % 0.3 % (0-4.4); Hematocrit 32.7 % (39.6-49.0); Hemoglobin 11.2 g/dL (13.6-17.9); Lymphocytes % 19.1 % (15.3-44.8); MCHC 34.3 g/dL (32.0-36.0); MCV 87.5 fL (80-100); MPV 8.2 fL (7.6-11.3); Monocytes % 11.3 % (3.3-12.3); Neutrophils % 68.7 % (41.7-73.7); Nucleated Red Blood Cells % 0.1 % (0-0); Platelets 107 thou/uL (152-406); RBC Red Blood Cell Count 3.73 M/uL (4.33-5.43); Red Cell Distribution Width 13.8 % (12.1-15.2)
[2025-02-20 16:32] LABS: Anion Gap 7.2 mEq/L (5.0-15.0); Potassium 3.2 mEq/L (3.5-5.1)
[2025-02-20] MEDS ORDERED: POTASSIUM CL SA 10 MEQ TAB PO ONE (16:50)
--- NOTE | 2025-02-20 17:18 | ER ---
Nurse's Notes [facility] Name: Toney Jenkins Age: 74 yrs Sex: Male : 1950 Arrival Date: 02/20/2025 Time: 15:11 Bed 18 Private MD: Diagnosis: SARS-associated coronavirus as the cause of diseases classified elsewhere;Dehydration;Nausea Presentation: 02/20 15:25 Chief complaint: EMS states: nausea, vomiting, feels bad. Coronavirus screen: Ebola kj2 Screen: No symptoms or risks identified at this time. Initial Sepsis Screen: Does the patient meet any 2 criteria? RR > 20 per min. Does the patient have a suspected source of infection? No. Patient's initial sepsis screen is negative. Risk Assessment: Do you want to hurt yourself or someone else? Patient reports no desire to harm self or others. Onset of symptoms was February 20, 2025. 15:25 Method Of Arrival: EMS: [facility] kj2 15:25 Acuity: DANII 3 kj2 Triage Assessment: 17:25 General: Appears in no apparent distress. Behavior is calm, cooperative. Pain: Denies kj2 pain. - Immunization history:: Adult Immunizations unknown. - Infectious Disease History:: Denies. - Family history:: not pertinent. - Social history:: Smoking status: Patient denies any tobacco usage or history of. - Hospitalizations: : No recent hospitalization is reported. Screenin:25 [facility] ED Fall Risk Assessment (Adult) History of falling in the last 3 months, kj2 including since admission No falls in past 3 months (0 pts) Confusion or Disorientation No (0 pts) Intoxicated or Sedated No (0 pts) Impaired Gait No (0 pts) Mobility Assist Device Used No (0 pt) Altered Elimination No (0 pt) Score/Fall Risk Level 0 - 2 = Low Risk Maintained a safe environment, Hourly rounding (assess needs \T\ fall precautionary measures) done. Abuse screen: Denies threats or abuse. Denies injuries from another. Nutritional screening: No deficits noted. Tuberculosis screening: No symptoms or risk factors identified. Assessment: 15:25 General: see triage. kj2 16:30 Reassessment: Patient appears in no apparent distress at this time. Patient and/or kj2 family updated on plan of care and expected duration. Pain level reassessed. Patient is alert, oriented x 3, equal unlabored respirations, skin warm/dry/pink. 17:24 Reassessment: Patient appears in no apparent distress at this time. Patient and/or kj2 family updated on plan of care and expected duration. Pain level reassessed. Patient is alert, oriented x 3, equal unlabored respirations, skin warm/dry/pink. Vital Signs: 15:25 BP 137 / 71; Pulse 59; Resp 20; Temp 98.4; Pulse Ox 100% ; Weight 96.16 kg; Height 5 kj2 ft. 9 in. ; 16:30 BP 135 / 74; Pulse 60; Resp 20; Pulse Ox 99% on R/A; kj2 17:25 BP 132 / 72; Pulse 59; Resp 18; Temp 98.2; Pulse Ox 100% on R/A; kj2 15:25 Body Mass Index 31.31 (96.16 kg, 175.26 cm) kj2 ED Course: 15:19 Patient arrived in ED. ll1 15:20 Arm band placed on Patient placed in an exam room, on a stretcher. ll1 15:21 Jamie Pollack MD is Attending Physician. rn 15:25 Patient has correct armband on for positive identification. Bed in low position. Call kj2 light in reach. Provided Education on: call light. 15:25 Maintain EMS IV. Dressing intact. Good blood return noted. Site clean \T\ dry. Gauge \T\ kj 2 site: 18g left AC. 15:53 Daja Hdez, RN is Primary Nurse. kj2 15:58 Triage completed. kj2 17:27 No provider procedures requiring assistance completed. IV discontinued, intact, kj2 bleeding controlled, No redness/swelling at site. Pressure dressing applied. Administered Medications: 16:23 Drug: NS 0.9% IV 500 ml 500 ml IV at 1 bolus once; to be given as a bolus over 30 kj2 minutes Volume: 500 ml; Route: IV; Rate: 1 bolus; Site: left antecubital; 17:26 Follow up: IV Status: Completed infusion; IV Intake: 500ml kj2 16:51 Drug: Potassium Chloride PO 40 mEq PO once Route: PO; kj2 17:26 Follow up: Response: No adverse reaction kj2 Medication: 16:00 VIS not applicable for this client. kj2 Intake: 17:26 IV: 500ml; Total: 500ml. kj2 Outcome: 17:18 Discharge ordered by . rn 17: Discharged to home ambulatory, kj2 17: Condition: stable 17: Discharge instructions given to patient, Instructed on discharge instructions, follow up and referral plans. Demonstrated understanding of instructions, follow-up care, 17:45 Patient left the ED. kj2 Signatures: Jamie Pollack MD MD rn Lewis, Lynsay, RN RN ll1 Daja Hdez RN RN kj2
--- NOTE | 2025-02-20 17:18 | EDPHYS ---
Physician Documentation [facility] Name: Toney Jenkins Age: 74 yrs Sex: Male : 1950 Arrival Date: 02/20/2025 Time: 15:11 Bed 18 Private MD: ED Physician Jamie Pollack HPI: 02/20 16:37 This 74 yrs old Male presents to ER via EMS with complaints of weakness. rn 16:38 Patient reports went home, took cough medication and then started to feel worse with rn nausea and generalized weakness with malaise. Diagnosed with COVID earlier today, just a couple of hours ago. Patient reports given nausea medication by EMS and now feels better. Still reports generalized weakness but does not require assistance to get up or move around. Denies any other new symptoms. No dyspnea.. Onset: The symptoms/episode began/occurred just prior to arrival. Severity of symptoms: At their worst the symptoms were moderate in the emergency department the symptoms have improved. The patient has not experienced similar symptoms in the past. - Immunization history:: Adult Immunizations unknown. - Infectious Disease History:: Denies. - Family history:: not pertinent. - Social history:: Smoking status: Patient denies any tobacco usage or history of. - Hospitalizations: : No recent hospitalization is reported. ROS: 16:38 Constitutional: Positive for fever and chills Cardiovascular: Negative for chest pain, rn palpitations, and edema, Respiratory: Positive for cough, negative for shortness of breath Abdomen/GI: Negative for abdominal pain, positive for nausea MS/Extremity: Negative for injury and deformity, Neuro: Positive for generalized weakness, negative for headache Exam: 16:38 Constitutional: This is a well developed, well nourished patient who is awake, alert, rn and in no acute distress. Head/Face: Normocephalic, atraumatic. ENT: Dry mucous membranes Cardiovascular: Bradycardic, regular. No pulse deficits. Respiratory: No increased work of breathing, no retractions or nasal flaring. Abdomen/GI: Soft, nontender MS/ Extremity: Pulses equal, no cyanosis Neuro: Awake and alert, GCS 15, oriented to person, place, time, and situation. Cranial nerves II-XII grossly intact. Motor strength 5/5 in all extremities. Sensory grossly intact. Cerebellar exam normal. Vital Signs: 15:25 BP 137 / 71; Pulse 59; Resp 20; Temp 98.4; Pulse Ox 100% ; Weight 96.16 kg; Height 5 kj2 ft. 9 in. ; 16:30 BP 135 / 74; Pulse 60; Resp 20; Pulse Ox 99% on R/A; kj2 17:25 BP 132 / 72; Pulse 59; Resp 18; Temp 98.2; Pulse Ox 100% on R/A; kj2 15:25 Body Mass Index 31.31 (96.16 kg, 175.26 cm) kj2 MDM: 15:21 Medical Screening Exam initiated rn 17:17 Differential Diagnosis Dehydration, COVID, electrolyte abnormality, renal failure. Data rn reviewed: vital signs, nurses notes, old medical records, lab test result(s), and as a result, I will discharge patient. Counseling: I had a detailed discussion with the patient and/or guardian regarding the historical points, exam findings, and any diagnostic results supporting the discharge/admit diagnosis, lab results, the need for outpatient follow up, to return to the emergency department if symptoms worsen or persist or if there are any questions or concerns that arise at home. Response to treatment: the patient's symptoms have markedly improved after treatment, and as a result, I will discharge patient. Special discussion: I discussed with the patient/guardian in detail that at this point there is no indication for admission to the hospital. It is understood, however, that if the symptoms persist or worsen the patient needs to return immediately for re-evaluation. ED course: Patient feels much better. No evidence of renal failure. Mild hypokalemia. Patient feels much better after nausea medication. Will discharge home with return precautions.. 02/20 15:30 Order name: CBC with Diff; Complete Time: 16:37 rn 02/20 15:30 Order name: Basic Metabolic Panel; Complete Time: 16:37 rn 02/20 15:30 Order name: IV Start; Complete Time: 16:12 rn Administered Medications: 16:23 Drug: NS 0.9% IV 500 ml 500 ml IV at 1 bolus once; to be given as a bolus over 30 kj2 minutes Volume: 500 ml; Route: IV; Rate: 1 bolus; Site: left antecubital; 17:26 Follow up: IV Status: Completed infusion; IV Intake: 500ml kj2 16:51 Drug: Potassium Chloride PO 40 mEq PO once Route: PO; kj2 17:26 Follow up: Response: No adverse reaction kj2 Disposition Summary: 02/20/25 17:18 Discharge Ordered Notes: Location: Home rn Problem: new rn Symptoms: have improved rn Condition: Stable rn Diagnosis - SARS-associated coronavirus as the cause of diseases classified elsewhere rn - Dehydration rn - Nausea rn Followup: rn - With: Private Physician - When: As needed - Reason: Recheck today's complaints, Re-evaluation by your physician Discharge Instructions: - Discharge Summary Sheet rn - Dehydration, Adult rn - Nausea, Adult rn - COVID-19 rn - Viral Illness, Adult rn Forms: - Medication Reconciliation Form rn - 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
[2025-02-20 18:22] VITALS: BP 132/72; TEMP 98.2; O2SAT 100
== END 2025-02-20 17:45 | disposition home or self-care (01) ==
LOC: ER 15:11
DX: U07.1 COVID-19 (principal); E86.0 Dehydration; R11.0 Nausea
CPT/HCPCS: 85025; 80048; 36415; 96360; 99284; J7040